=== PATIENT | male | born 1975 | race Two or more races ===

== ENCOUNTER → 2024-04-17 | Outpatient (CLI) | payer MEDICAID, SELFPAY | END | disposition home or self-care (01) | LOC: SWHD 09:34 | PROVIDERS: PCP Registered Nurse Community Health; Referring Provider Registered Nurse Community Health; Visit Provider Surgery | DX: S31.819D Unspecified open wound of right buttock, subsequent encounter (principal); X58.XXXD Exposure to other specified factors, subsequent encounter; L98.412 Non-pressure chronic ulcer of buttock with fat layer exposed; L92.9 Granulomatous disorder of the skin and subcutaneous tissue, unspecified; N63.0 Unspecified lump in unspecified breast; K60.30 Anal fistula, unspecified; K50.90 Crohn's disease, unspecified, without complications; D64.9 Anemia, unspecified | CPT/HCPCS: 99213; A9270; G0463 ==

== ENCOUNTER 2024-05-02 11:26 | Emergency (ER) | payer MEDICAID, SELFPAY ==
[2024-05-02 11:32] VITALS: BP 115/78; PULSE 87; RESP 18; TEMP 36.7; O2SAT 100; BMI 20.3
--- NOTE | 2024-05-02 11:47 | XR_ITS ---
Examination: CT abdomen and pelvis without contrast. Coronal 3-D reconstructions. Sagittal 2-D reconstructions. Date and time of exam:May 02, 2024 1231 hrs. Indications: Generalized abdominal pain one month, perianal fistula history CTDI: vol (mGy): 5.1 DLP: (mGycm): 279 Technique: Axial images of the abdomen have been obtained, 3 mm slice thickness Intravenous contrast material has not been administered. Low dose protocols were performed. One or more of the following dose reduction techniques were used; automated exposure control, adjustment of the mA and/or KV according to patient size, use of iterative reconstruction technique. Findings: No focal liver or splenic lesions Contracted gallbladder No pancreatic or adrenal mass No renal or ureteral calculi Diffuse wall thickening involving the common No pericecal inflammatory change Contracted urinary bladder Fistulous tract from the posterior right perianal region axial image 218 extending to the intergluteal fold with cellulitis in the right gluteal region, no definite abscess Impression: Diffuse severe nonspecific colitis pattern Fistulous tract from the posterior right perianal region extending to the right intergluteal fold with cellulitis
--- NOTE | 2024-05-02 11:49 | PD.EDRME ---
Rapid Medical Screening Exam RME Arrival date/time: 05/02/24 11:26 49-year-old male with history of Crohn's disease presents emergency department complains of lower abdominal pain and diarrhea Chief Complaint: Abdominal Pain Time Seen by Provider: 05/02/24 11:45 Vital signs: Vital Signs Temperature 98.0 F 05/02/24 11:32 Pulse Rate 87 05/02/24 11:32 Respiratory Rate 18 05/02/24 11:32 Blood Pressure 115/78 05/02/24 11:32 Pulse Oximetry (%) 100 05/02/24 11:32 Oxygen Delivery Method Room Air 05/02/24 11:32
[2024-05-02] MEDS: METOCLOPRAMIDE 5 MG TABLET 10 MG PO (12:04)
[2024-05-02 12:21] LABS: Basophils % (Auto) 0 % (0-2.5); Eosinophils # (Auto) 0.1 Thou/mm3 (0.0-0.5); Eosinophils % (Auto) 1 % (0-10); Hematocrit 37.5 % (41.0-53.0); Hemoglobin 11.9 g/dL (13.5-16.0); Immature Granulocytes % (Auto) 0 % (0-0); Immature Granulocytes Auto 0.02 Thou/mm3 (0.00-0.00); Lymphocytes % (Auto) 29 % (10-50); Mean Corpuscular HGB Conc 31.7 g/dl (31.0-37.0); Mean Corpuscular Hemoglobin 22.7 pg (25.0-35.0); Mean Corpuscular Volume 72 fL (80-100); Monocytes # (Auto) 0.5 Thou/mm3 (0.0-0.8); Monocytes % (Auto) 7 % (0-12); Neutrophils # (Auto) 4.4 Thou/mm3 (1.8-7.7); Neutrophils % (Auto) 63 % (37-80); Nucleated Red Blood Cell % 0 /100 WBC (0); Platelet Count 391 Thou/mm3 (140-440); RDW Standard Deviation 39.3 fL (35.1-43.9); Red Blood Count 5.24 Miln/mm3 (4.50-5.90); White Blood Count 7.1 Thou/mm3 (3.8-10.6)
[2024-05-02 12:28] LABS: Alanine Aminotransferase 25 U/L (10-49); Albumin, Serum 4.4 gm/dL (3.5-5.0); Albumin/Globulin Ratio 1.5 (1.2-2.2); Alkaline Phosphatase 92 U/L (46-116); Anion Gap 8 (7-16); Aspartate Amino Transferase 14 U/L (0-34); BUN/Creatinine Ratio 17 Ratio (12-20); Bilirubin,Total 0.5 mg/dL (0.3-1.2); Blood Urea Nitrogen 12 mg/dL (9-23); Calcium 9.6 mg/dL (8.3-10.6); Calcium (Corrected) 9.6 mg/dL (8.5-10.1); Carbon Dioxide 28.7 mMol/L (20.0-31.0); Chloride 99 mMol/L (98-107); Creatinine (Component) 0.7 mg/dL (0.6-1.3); Estimated Creatinine Clearance 105.5 mL/min (>60); Glucose 137 mg/dL (74-106); Lipase 34 U/L (12-53); Osmolality,Calculated 273 (275-295); Sodium 136 mMol/L (136-145); Total Protein 7.4 gm/dL (5.7-8.2); eGFR > 60 See Note
[2024-05-02 15:03] VITALS: BP 118/77; PULSE 69; RESP 18; TEMP 36.5; O2SAT 99
[2024-05-02 15:06] LABS: Collection Type, Urine Clean Catch; Squamous Epithelial Cell,Urine 0 /hpf (0-5)
[2024-05-02 15:17] LABS: Bilirubin,Urine Negative (Negative); Blood,Urine Negative (Negative); Calcium Oxalate Crystals,Urine 1+; Clarity,Urine Clear (Clear/Hazy); Color,Urine Yellow (Lt Yel-Yel); Culture Indicated,Urine Not Indicated; Glucose, Urine Negative (Negative); Ketones,Urine Negative (Negative); Leukocyte Esterase,Urine Negative (Negative); Nitrite,Urine Negative (Negative); PH,Urine 6.5 (5.0-7.0); Protein,Urine 1+ (Neg - Trace); RBC,Urine 4 /hpf (0-3); Specific Gravity,Urine 1.035 (1.001-1.035); Urobilinogen,Urine Negative mg/dL (0.0-1.0); WBC,Urine 6 /hpf (0-5)
--- NOTE | 2024-05-02 15:55 | EDNOTE_ITS ---
ED Abdominal Pain RME/HPI General Chief Complaint: Abdominal Pain Stated complaint: ABD PAIN/NAUSEA/CONSTIPATION X1 MONTH Time seen by provider: 05/02/24 11:45 Arrival date/time: 05/02/24 11:26 RME / HPI RME / HPI narrative: 49-year-old male patient with significant history of Crohn's disease, came in for evaluation regarding lower abdominal pain and diarrhea. This been ongoing for the last 1 month, it comes and goes. Patient also complaining of chronic wound to the rectal area for several months. Seen by colorectal surgeon, Dr. Head. Patient denies any vomiting denies any fever denies any other complaints told me that he is currently taking prednisone and mesalamine. Related Data Home Medications ?Medication ?Instructions ?Recorded ?Confirmed SALOFALK 500 mg PO 12/12/23 02/05/24 diphenoxylate-atropine 2.5 See Rx Instructions .Route 01/01/24 02/05/24 mg-0.025 mg tablet .COMPLEX PRN Diarrhea mesalamine 500 mg capsule,extended 1,000 mg PO BID 01/08/24 02/05/24 release (Pentasa) Previous Rx's ?Medication ?Instructions ?Recorded ibuprofen 600 mg tablet 600 mg PO Q6H PRN pain #30 tabs 05/23/23 ciprofloxacin HCl 500 mg tablet 500 mg PO BID #14 tabs 05/02/24 (Cipro) metronidazole 500 mg tablet 500 mg PO BID 7 days #14 tabs 05/02/24 Allergies Allergy/AdvReac Type Severity Reaction Status Date / Time sulfamethizole Allergy Mild Rash Verified 05/02/24 11:30 Review of Systems Review of Systems Narrative Review of Systems: Review of system reviewed and within normal limits except mentioned in HPI ED Exam Narrative Physical exam: VITAL SIGNS: Reviewed. GENERAL APPEARANCE: Alert and interactive, follows commands, no acute distress, HEAD AND FACE: Non-traumatic. ENT: PERRL, pink conjunctivitis, eyelid no trauma, Mucous membrane moist. NECK: Supple, nontender, no nuchal rigidity. CHEST: No tenderness, no crepitus, no paradoxical movement, no retractions. LUNGS: Clear, well ventilated, symmetric, no rales, no wheezing, no ronchi, no stridor, good breath sounds bilaterally. HEART: Regular rate, regular rhythm, no murmur, no gallops. ABDOMEN: Soft, positive bowel sounds, nondistended, no guarding, nontender, no rebound, no masses, RECTAL: Chronic wound noted on the rectal area, at 2 o'clock position, no redness noted nonfluctuant ,nontender GENITAL: Deferred. NEUROLOGICAL: Gross motor function intact sensory function intact, Appropriate for age. MUSCULOSKELETAL: low back nontender, full range of motion. EXTREMITIES: Nontender, full range of motion. SKIN: Color pink, dry, no rash, no lacerations, no abrasions, no contusions. LYMPHATICS: Deferred. Course Quality Measures none Orders Category Date Time Status CT abdomen pelvis wo con Stat Exams 05/02/24 11:47 Completed CBC Stat Lab 05/02/24 11:55 Completed Comprehensive Metabolic Panel Stat Lab 05/02/24 11:55 Completed Lipase Stat Lab 05/02/24 11:55 Completed UA, C/S IF [Urinalysis, C/S if Indicated] Stat Lab 05/02/24 14:56 Completed Metoclopramide [Reglan] Med 05/02/24 11:47 Discontinued 10 mg PO X1 ONE Potassium Chloride [K-Dur] Med 05/02/24 15:57 Once 40 meq PO X1 ONE Vital Signs Vital signs: Vital Signs Temperature 98.0 F 05/02/24 11:32 Pulse Rate 87 05/02/24 11:32 Respiratory Rate 18 05/02/24 11:32 Blood Pressure 115/78 05/02/24 11:32 Pulse Oximetry (%) 100 05/02/24 11:32 Oxygen Delivery Method Room Air 05/02/24 11:32 Abdominal Pain MDM MDM Narrative MDM Narrative:: 49-year-old male patient with significant history of Crohn's disease, came in for evaluation regarding lower abdominal pain and diarrhea. This been ongoing for the last 1 month, it comes and goes. Patient also complaining of chronic wound to the rectal area for several months. Seen by colorectal surgeon, Dr. Head. Patient denies any vomiting denies any fever denies any other complaints told me that he is currently taking prednisone and mesalamine. Laboratory workup all came back unremarkable except for potassium of 3.0. No le ukocytosis noted. CT scan of the abdomen and pelvis showed Diffuse severe nonspecific colitis pattern Fistulous tract from the posterior right perianal region extending to the right intergluteal fold with cellulitis Patient received potassium replacement in the emergency room. Patient was advised to see Dr. Sher again next week. Patient will be prescribed home on Flagyl and Cipro Patient data External records reviewed:: None Clinical information provided by:: patient Social determinants that could affect healthcare access:: none Patient has the following chronic illnesses:: Course this is How is presenting disease/condition affected by chronic disease/condition?: exacerbated by Evaluation data The following diagnostics were reviewed and interpreted by me:: lab results and radiology exam(s) Lab and/or radiology exams considered but not ordered:: None Interpretation Summary: See above in the MDM Medications / Prescriptions Medications or Prescriptions considered but not ordered:: None Medication administrations:: Medication Administration History Discontinued Medications Metoclopramide HCl (Metoclopramide 5 Mg Tablet) 10 mg PO X1 ONE Stop: 05/02/24 11:48 Last Admin: 05/02/24 12:04 Dose: 10 mg Documented By: MAK Swain and potassium replacement Consultations Consultation(s) initiated? (list below): No Diagnosis Differential diagnosis abdominal pain: abdominal pain, constipation, gastroenteritis and other (Crohn's disease, chronic fistula of the perianal) Most likely diagnosis given after review of the tests above:: Crohn's disease, chronic perianal fistula Admission Indicated Admission indicated?: not indicated Admission Request Was there a request for admission?: No Disposition Plan Disposition Plan: Discharge Discharge Attestation Discharge Attestation: The patient was given an opportunity to ask questions and understood the discharge instructions. Discharge instructions specifically effects, indications for sooner follow up or return to the emergency department, and the expected course of current diagnosis. Patient condition: Stable Discharge Plan Plan Patient Disposition: HOME (Self Care) Disposition Comment: Stable Prescriptions/Referrals Prescriptions/Med Rec: New ciprofloxacin HCl [Cipro] 500 mg tablet 500 mg PO BID Qty: 14 0RF metronidazole 500 mg tablet 500 mg PO BID 7 Days Qty: 14 0RF No Action ibuprofen 400 mg tablet 400 mg PO ONCE Qty: 1 0RF ibuprofen 600 mg tablet 600 mg PO ONCE Qty: 1 0RF ibuprofen 600 mg tablet 600 mg PO Q6H PRN (Reason: pain) Qty: 30 0RF SALOFALK 500 mg PO mesalamine [Pentasa] 500 mg capsule, extended release 1,000 mg PO BID diphenoxylate-atropine 2.5-0.025 mg tablet See Rx Instructions .ROUTE .COMPLEX PRN (Reason: Diarrhea) Patient Comments: TAKE 1-2 TABLETS BY MOUTH EVERY 8 HOURS NEEDED DIARRHEA MAX 8 TABS/24 HRS Rx Instructions: Take 1-2 tablets by mouth every 8 hours as needed for diarrhea Referrals: Mauro Jones MD [Primary Care Provider] - In 1 week Problem List Clinical Impression: Perianal fistula, Irritable bowel disease Patient/Caregiver Discharge Instructions Discharge Activity: activity as tolerated Education Materials: ED Irritable Bowel Syndrome Additional Instructions: Thank you for the opportunity for serving you today. You are stable for discharged . You are advised to: Follow-up with Dr. Head next week Return to ED for worsening of symptoms Increase oral fluids Take medication as prescribed Increase fiber in the diet Print Language: [place] Stand Alone Forms: [facility] Award Info., Patient Portal Info Letter PA/PLANT OPERATIONS COORDINATOR Supervising Physician PA/RADHA Supervising Physician: MD Monalisa
== END 2024-05-02 16:34 | disposition home or self-care (01) ==
PROVIDERS: Nurse Practitioner Primary Care; Emergency Provider Emergency Medicine; PCP Student in an Organized Health Care Education/Training Program
DX: K60.30 Anal fistula, unspecified (principal); K58.2 Mixed irritable bowel syndrome
CPT/HCPCS: 36415; 74176; 80053; 81001; 83690; 85025; 99284; A9270

== ENCOUNTER → 2024-05-18 | Outpatient (CLI) | payer MEDICAID, SELFPAY | END | disposition home or self-care (01) | LOC: SWHD 10:33 | PROVIDERS: PCP Registered Nurse Community Health; Referring Provider Registered Nurse Community Health; Visit Provider Student in an Organized Health Care Education/Training Program | DX: S31.819D Unspecified open wound of right buttock, subsequent encounter (principal); X58.XXXD Exposure to other specified factors, subsequent encounter; L98.412 Non-pressure chronic ulcer of buttock with fat layer exposed; L92.9 Granulomatous disorder of the skin and subcutaneous tissue, unspecified; N63.0 Unspecified lump in unspecified breast; K60.30 Anal fistula, unspecified; K50.90 Crohn's disease, unspecified, without complications; D64.9 Anemia, unspecified | CPT/HCPCS: 99213; A9270; G0463 ==

== ENCOUNTER 2024-05-25 14:47 | Outpatient (AMB) | payer MEDICAID, SELFPAY ==
[2024-05-25 14:58] VITALS: BP 111/74; PULSE 74; RESP 18; TEMP 37.1; O2SAT 98; BMI 21.2
--- NOTE | 2024-05-25 14:58 | GSCOFFNT_ITS ---
Vital Signs - [facility] 05/25/24 14:58 Height 1.68 m Height Method Stated Weight 60.044 kg Weight Measurement Method Standing Scale BMI 21.2 BP 111/74 Blood Pressure Source Manual Cuff- Auscultation Blood Pressure Location Left Upper Arm Position Sitting Respiration 18 Pulse 74 Pulse Source Monitor Temp 98.8 F Temp Source Temporal Artery Scan Pulse Oximetry (%) 98 Oxygen Delivery Method Room Air Med/Allergies Allergies & Medications Allergies sulfamethizole Allergy (Mild, Verified 05/25/24 14:59) Rash Medication Reconciliation ibuprofen 600 mg tablet 600 mg PO Q6H PRN pain #30 tabs 05/23/23 [Rx Confirmed 05/25/24] SALOFALK 500 mg PO 12/12/23 [History Confirmed 05/25/24] diphenoxylate-atropine 2.5 mg-0.025 mg tablet See Rx Instructions .Route .COMPLEX PRN Diarrhea 01/01/24 [History Confirmed 05/25/24] mesalamine 500 mg capsule,extended release (Pentasa) 1,000 mg PO BID 01/08/24 [History Confirmed 05/25/24] ciprofloxacin HCl 500 mg tablet (Cipro) 500 mg PO BID #14 tabs 05/02/24 [Rx Confirmed 05/25/24] MA Intake Visit Data Collection New Patient or Established: Established Patient (seen at [facility] within 3 years) Seen by Clinical Staff ONLY (RN/MA): No Reason for Visit:: FISTULA F/U Pain Present Currently: Yes Pain Location: Unable to identify Pain scale:: 6 Car Salesman Required: Yes PCP or OBGYN visit in last 3 months: Yes Hx Now: No Do You Feel Safe at Home: Yes Authorities Contacted: N/A Smoking Status Smoking Status: Never smoker Immunization / Flu Flu Vaccine in the Last 12 Months: No Flu Vaccine Exclusion Criteria: Refused by Patient Past Medical History Past Medical History NEUROLOGIC: Negative Seizures CARDIAC: Negative Cardiac Disorders or Congestive Heart Failure RESPIRATORY: Negative Chronic Obstructive Pulmonary Disease (COPD) or Asthma GENITOURINARY: Negative Renal Disease ENDOCRINE: Negative Diabetes Mellitus Type 1 or Diabetes Mellitus Type 2 HEMATOLOGIC: Negative Sickle Cell Disease OTHER HISTORY: Negative Blood Transfusions, Blood Transfusion Reaction or Anesthesia Reactions Social History SMOKING STATUS: Smoking status: Never smoker ALCOHOL: Alcohol Intake: Never HOUSING: Housing: trailer LIVES WITH: Lives With: Alone HPI HPI Narrative 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 Patient has been taking Humira and mesalamine and is being weaned from prednisone, and states that for the last month or so his diarrhea has improved somewhat. He still has loose BMs and tenesmus but feels that he is not going quite as frequently as of late. He is followed with wound care, continues to have perianal drainage although it is less than previous. Patient also states he is eating better and has gained a little bit of weight ROS Review of Systems Systems Reviewed: All systems reviewed, normal except as documented Objective/Exam General General Appearance: alert, cooperative and well groomed Resp Respiratory exam: Absent respiratory distress Rectal Rectal exam: Present other (Right perianal wound healing with beefy red granulation tissue, no obvious fistula tract, no surrounding erythema, no fluctuance) Assessment & Plan Diagnosis / Problem List (1) Crohn's disease of perianal region with fistula: Status: Acute Assessment & Plan: 49M with Crohn's disease and associated perianal fistula which has decreased in size compared to exams last year. Patient was advised to follow-up with his GI, PCP and wound care Plan: Follow up in 3 months or sooner if needed top Office Procedures GNS Level of Care Nursing/Assessment Patient Status: Established Patient Nursing Assessment/Reassesment: Medication Reconciliation, Update PMH in EMR and Vital Signs Coordination of Care: Complex Care and Chronic Disease 1-5, Consent,records obtained, informed consent, Education Simp Pt/Fam, Results/Orders obtained and Staff clarify orders Special Needs: Language special needs Established Patient Charge Established Patient Point Assignment: 90 Established Patient Point Charge: EP Level 3 (80-115) Patient Portal Questionaires Social History Living Situation History Housing: trailer Tobacco History Smoking Status: Never smoker Alcohol History Alcohol Intake: Never Domestic Abuse History Do You Feel Safe at Home: Yes Review of Systems Report any current symptoms Only answer those that you have currently: Past Medical History Past Medical History Have you ever been diagnosed with any of the following: Neurological Problems Seizures: No Cardiology Problems Congestive Heart Failure: No Respiratory Problems Chronic Obstructive Pulmonary Disease (COPD): No Asthma: No Genital/Urinary Problems Renal Disease: No Endocrine Problems Diabetes Mellitus Type 1: No Diabetes Mellitus Type 2: No Blood Problems Sickle Cell Disease: No Other Problems Blood Transfusions: No Blood Transfusion Reaction: No Anesthesia Reactions: No
== END 2024-05-25 15:30 | disposition home or self-care (01) ==
LOC: HODSRG 14:47
PROVIDERS: PCP Registered Nurse Community Health; Referring Provider Registered Nurse Community Health; Supervising Provider Surgery; Visit Provider Surgery
DX: K50.113 Crohn's disease of large intestine with fistula (principal)
CPT/HCPCS: 99213; G0463

== ENCOUNTER → 2024-06-01 | Outpatient (CLI) | payer MEDICAID, SELFPAY | END | disposition home or self-care (01) | LOC: SWHD 10:27 | PROVIDERS: PCP Registered Nurse Community Health; Referring Provider Registered Nurse Community Health; Visit Provider Student in an Organized Health Care Education/Training Program | DX: S31.819D Unspecified open wound of right buttock, subsequent encounter (principal); X58.XXXD Exposure to other specified factors, subsequent encounter; L98.412 Non-pressure chronic ulcer of buttock with fat layer exposed; L92.9 Granulomatous disorder of the skin and subcutaneous tissue, unspecified; N63.0 Unspecified lump in unspecified breast; K60.30 Anal fistula, unspecified; K50.90 Crohn's disease, unspecified, without complications; D64.9 Anemia, unspecified | CPT/HCPCS: 99213; A9270; G0463 ==

== ENCOUNTER → 2024-06-08 | Outpatient (CLI) | payer MEDICAID, SELFPAY | END | disposition home or self-care (01) | LOC: SWHD 11:52 | PROVIDERS: PCP Registered Nurse Community Health; Referring Provider Registered Nurse Community Health; Visit Provider Student in an Organized Health Care Education/Training Program | DX: S31.819D Unspecified open wound of right buttock, subsequent encounter (principal); X58.XXXD Exposure to other specified factors, subsequent encounter; L98.412 Non-pressure chronic ulcer of buttock with fat layer exposed; L92.9 Granulomatous disorder of the skin and subcutaneous tissue, unspecified; N63.0 Unspecified lump in unspecified breast; D64.9 Anemia, unspecified | CPT/HCPCS: 99213; A9270; G0463 ==

== ENCOUNTER → 2024-06-26 | Outpatient (CLI) | payer MEDICAID, SELFPAY | END | disposition home or self-care (01) | LOC: SWHD 10:53 | PROVIDERS: PCP Registered Nurse Community Health; Referring Provider Registered Nurse Community Health; Visit Provider Surgery | DX: S31.819D Unspecified open wound of right buttock, subsequent encounter (principal); X58.XXXD Exposure to other specified factors, subsequent encounter; L98.412 Non-pressure chronic ulcer of buttock with fat layer exposed; L92.9 Granulomatous disorder of the skin and subcutaneous tissue, unspecified; D64.9 Anemia, unspecified; N63.0 Unspecified lump in unspecified breast; K50.90 Crohn's disease, unspecified, without complications | CPT/HCPCS: 99213; A9270; G0463 ==

== ENCOUNTER → 2024-07-03 | Outpatient (CLI) | payer MEDICAID, SELFPAY | END | disposition home or self-care (01) | LOC: SWHD 10:16 | PROVIDERS: PCP Registered Nurse Community Health; Referring Provider Registered Nurse Community Health; Visit Provider Surgery | DX: S31.819D Unspecified open wound of right buttock, subsequent encounter (principal); X58.XXXD Exposure to other specified factors, subsequent encounter; L98.412 Non-pressure chronic ulcer of buttock with fat layer exposed; L92.9 Granulomatous disorder of the skin and subcutaneous tissue, unspecified; D64.9 Anemia, unspecified; N63.0 Unspecified lump in unspecified breast; K50.90 Crohn's disease, unspecified, without complications; R60.0 Localized edema | CPT/HCPCS: 99213; A9270; G0463 ==

== ENCOUNTER → 2024-07-17 | Outpatient (CLI) | payer MEDICAID, SELFPAY | END | disposition home or self-care (01) | PROVIDERS: PCP Registered Nurse Community Health; Referring Provider Registered Nurse Community Health; Visit Provider Physician Assistant | DX: S31.819D Unspecified open wound of right buttock, subsequent encounter (principal); X58.XXXD Exposure to other specified factors, subsequent encounter; L98.412 Non-pressure chronic ulcer of buttock with fat layer exposed; L92.9 Granulomatous disorder of the skin and subcutaneous tissue, unspecified; D64.9 Anemia, unspecified; N63.0 Unspecified lump in unspecified breast; R60.0 Localized edema | CPT/HCPCS: 99213; A9270; G0463 ==

== ENCOUNTER 2024-07-18 07:28 | Inpatient (IN) | payer MEDICAID, SELFPAY ==
[2024-07-18] VITALS (8 sets, daily range): BP systolic 96–118; BP diastolic 52–76; PULSE 61–93; RESP 16–98; TEMP 36.2–36.8; O2SAT 95–100; BMI 21.6; BMI 20.2; BMI 20.5
--- NOTE | 2024-07-18 08:02 | EDRME_ITS ---
Rapid Medical Screening Exam RME Arrival date/time: 07/18/24 07:28 49-year-old male with medical history significant for Crohn's disease as well as anal fistula currently followed by specialist in [place] presents to the emergency department today complaints of nausea vomiting abdominal pain as well as hiccups. Chief Complaint: Extremity Problem,Nontraumatic Time Seen by Provider: 07/18/24 07:30 Vital signs: Vital Signs Temperature 98.2 F 07/18/24 07:48 Pulse Rate 93 07/18/24 07:48 Respiratory Rate 18 07/18/24 07:48 Blood Pressure 110/76 07/18/24 07:48 Pulse Oximetry (%) 97 07/18/24 07:48 Oxygen Delivery Method Room Air 07/18/24 07:48
--- NOTE | 2024-07-18 08:22 | EDNOTE_ITS ---
ED General RME/HPI General Chief complaint: Extremity Problem,Nontraumatic Stated complaint: Extremity pain and bruising without trauma Time Seen by Provider: 07/18/24 07:30 Arrival date/time: 07/18/24 07:28 RME / HPI RME / HPI narrative: 07/18/24 07:28 49-year-old male with medical history significant for Crohn's disease as well as anal fistula currently followed by specialist in [place] presents to the emergency department today complaints of nausea vomiting abdominal pain as well as hiccups. DR. WATSON MAIN ED EVALUATION: 49 year old male with past medical history significant for Crohn's disease and anal fistula currently followed by a specialist in [place] presents to the Emergency Department with complaints of intermittent hiccups onset 1 week. Associated nausea and vomiting, especially after hiccups episode. No diarrhea. Related Data Home Medications ?Medication ?Instructions ?Recorded ?Confirmed SALOFALK 500 mg PO 12/12/23 05/25/24 diphenoxylate-atropine 2.5 See Rx Instructions .Route 01/01/24 05/25/24 mg-0.025 mg tablet .COMPLEX PRN Diarrhea mesalamine 500 mg capsule,extended 1,000 mg PO BID 05/25/24 release (Pentasa) Previous Rx's ?Medication ?Instructions ?Recorded ibuprofen 600 mg tablet 600 mg PO Q6H PRN pain #30 t abs 05/23/23 ciprofloxacin HCl 500 mg tablet 500 mg PO BID #14 tabs 05/02/24 (Cipro) Allergies Allergy/AdvReac Type Severity Reaction Status Date / Time sulfamethizole Allergy Mild Rash Verified 05/25/24 14:59 Review of Systems Review of Systems Systems Reviewed: All systems reviewed, normal except as documented Narrative Review of Systems: GEN: No fever, no chills, no weight loss, + intermittent hiccups (see HPI) EYES: No discharge, no visual changes, no pain HEENT: No ear pain, no congestion, no sore throat PULM: No shortness of breath, no cough, no congestion CV: No chest pain, no dyspnea on exertion, no palpitations GI: + nausea, + vomiting, no diarrhea, no pain, no constipation : No frequency, no urgency and no dysuria MUSC/SKEL: No joint pain, no back pain SKIN: No rash PSYCH: No hallucinations, no depression HEME/LYMPH: No easy bleeding or bruising tendencies NEURO: No weakness, no headache Past Medical History Past Medical History GASTROINTESTINAL: Positive Crohn's Disease Surgical History OTHER SURGICAL HX: ANAL FISTULA SURGERY Social History SMOKING STATUS: Never smoker SUBSTANCE USE: does not use ALCOHOL: Never ED Exam Narrative Physical exam: GENERAL APPEARANCE: alert and oriented x 4, well-developed, well-nourished, no acute distress VITALS: All vitals were reviewed and the pulse ox is 100% on room air, which is normal according to my interpretation. HEENT: Normocephalic, atraumatic; pupils equal, round, reactive to light; EOMI; mucous membranes pink, moist; oropharynx clear NECK: Supple LUNGS: CTABL; no wheezes, no rales, no rhonchi HEART: Regular rate, regular rhythm; normal S1, S2; no murmurs ABDOMEN: non distended; normal BS; soft, no tenderness, no guarding, no rebound; no masses, no organomegaly, no hernia BACK: no CVA tenderness EXTREMITIES: atraumatic; no edema NEUROLOGIC: awake; alert and oriented x4; cranial nerves II-XII grossly intact; no focal sensory or motor deficits PSYCHIATRIC: appropriate mood and affect SKIN: warm, dry, normal color; no rashes Course Quality Measures none Orders Category Date Time Status CT Screening NOW Care 07/18/24 09:20 Active Insert IV NOW Care 07/18/24 08:01 Active NPO NOW Care 07/18/24 13:40 Active Diet NPO (NOW) Diet 07/18/24 13:[address] abdomen pelvis w con Stat Exams 07/18/24 09:20 Completed CBC Stat Lab 07/18/24 08:20 Completed Comprehensive Metabolic Panel Stat Lab 07/18/24 08:20 Completed Lipase Stat Lab 07/18/24 08:20 Completed Mag [Magnesium] Stat Lab 07/18/24 08:20 Completed Path Review Blood Smear Stat Lab 07/18/24 08:20 Completed UA, C/S IF [Urinalysis, C/S if Indicated] Stat Lab 07/18/24 08:39 Completed Urine Culture Stat Lab 07/18/24 08:39 Received Metoclopramide Inj [Reglan Inj] Med 07/18/24 08:01 Discontinued 10 mg IVP X1 ONE Metoclopramide Inj [Reglan Inj] Med 07/18/24 13:36 Discontinued 10 mg IVP X1 ONE Piper/Tazo Inj [Zosyn Inj] 3.375 gm Med 07/18/24 13:39 Discontinued SODIUM CHLORIDE 0.9% (Popper) [Ns 0.9% (P)] 50 ml IV X1 Sodium Chloride 0.9% 1000 ml [Ns] 1,000 ml Med 07/18/24 14:10 Active IV 125 mls/hr Sodium Chloride 0.9% 1000 ml [Ns] 1,000 ml Med 07/18/24 08:37 Discontinued IV 999 mls/hr Sodium Chloride 0.9% 250 ml [Ns] 250 ml Med 07/18/24 08:01 Discontinued IV 999 mls/hr Reevaluation(s) Reevaluation #1: Re-assessment at the time of disposition demonstrates that the patient is still having hiccups. No other complaints at this time. Ordered more reglan for him and waiting on Dr. Fischer to call back, I left a message. Time: 13:32 Vital Signs Vital signs: Vital Signs Temperature 98.2 F 07/18/24 07:48 Pulse Rate 93 07/18/24 07:48 Respiratory Rate 18 07/18/24 07:48 Blood Pressure 110/76 07/18/24 07:48 Pulse Oximetry (%) 97 07/18/24 07:48 Oxygen Delivery Method Room Air 07/18/24 07:48 [facility] Patient data External records reviewed:: [facility] previous records (Reviewed surgical follow-up note by Dr. Head dated 05/25/24.) Clinical information provided by:: patient Social determinants that could affect healthcare access:: none Patient has the following chronic illnesses:: Crohn's disease and anal fistula currently followed by a specialist in [place] How is presenting disease/condition affected by chronic disease/condition?: e xacerbated by Evaluation data The following diagnostics were reviewed and interpreted by me:: lab results and radiology exam(s) Lab and/or radiology exams considered but not ordered:: none Interpretation Summary: [facility] [address] [place] [address] [employer] Preliminary Report Draft Patient: SHANNAN VALLEJO [facility]. Record#: [id number] Birthdate: 1975 Age/Sex: 49 / M Location: [facility] Attending Dr: Ordering Physician: Date of Service: Procedure(s): Accession Number(s): cc: ~ CT scan of the abdomen and pelvis with intravenous contrast (axial sections with sagittal and coronal reformats) July 18, 2024 1124 hours Clinical History: Epigastric pain Comparison: No prior study is available for comparison. Findings: The lung bases are clear. The liver, gallbladder, pancreas, spleen and adrenals are unremarkable. There is a right renal cyst, measuring 1 cm. No evidence of bowel obstruction. There is mild thickening of the caecum, descending, sigmoid and transverse colon with associated fat stranding and mucosal enhancement. The appendix is thickened, measuring 23 mm in caliber with mural enhancement and periappendiceal fat stranding. There is no mesenteric or retroperitoneal adenopathy. The urinary bladder is incompletely distended at the time of the examination and appears mildly thick-walled. There is rectal wall thickening with perirectal fat stranding. There is a 4 x 5 cm peripherally enhancing fluid collection with surrounding fat stranding in the right perianal region, consistent with an abscess, with fat stranding extending to the right gluteal fold. On the background of edema, a fistula is differentiated, with exit to the skin of the perianal area on the right side. There is no free fluid or free air. The osseous structures are unremarkable. Impression: 1. Acute appendicitis without evidence of free air or abscess. 2. A 4 x 5 cm peripherally enhancing fluid collection with surrounding fat stranding in the right perianal region, consistent with an abscess, with fat stranding extending to the right gluteal fold. Fistula of the perianal area. 3. Thickening of the caecum, descending, sigmoid and transverse colon with associated fat stranding and mucosal enhancement, suggestive of colitis of inflammatory or infectious etiology. Discussion Details: Results verbally communicated to : Dr. Watson at 01:18 PM 07/18/2024 Report Electronically Signed By: Ibrahima Jacobs 07/18/2024 1:27:32 PM [EST] Dictated By: Signed By: DD/ 1213 TD/TT: 07/18/[address] General Manager: - [facility] [address] [place] [address] [facility] Report Signed Patient: SHANNAN VALLEJO Record#: [id number] Birthdate: 1975 Age/Sex: 49 / M Location: [facility] Attending Dr: Ordering Physician: Maggy Watson MD Date of Service: 07/18/24 Procedure(s): CT abdomen pelvis w con Accession Number(s): [id number] cc: Mauro Jones MD; Marshall Cuello MD; Maggy Watson MD~ Examination: CT abdomen with intravenous contrast CT pelvis with intravenous contrast 2-D coronal reconstructions 2-D sagittal reconstructions Date and time of exam:July 18, 2024 1130 hrs. Indications: Onset abdominal pain epigastric pain today. CTDI: vol (mGy) 4.53 DLP: (mGycm) 240 Technique: Multiple axial sections of the abdomen and pelvis have been obtained. 64 slice high-resolution scanner used. 3 mm axial sections have been obtained, post intravenous injection 100 cc [id number] 2-D sagittal, coronal reconstructions obtained. Low dose protocols were performed. One or more of the following dose reduction techniques were used; automated exposure control, adjustment of the mA and/or KV according to patient size, use of iterative reconstruction technique. Findings: No focal liver or splenic lesions Mild splenomegaly No gallstones Edema involving the right kidney consistent with acute right, nephritis Aorta normal size There is inflammation medial to the cecum, the appendix is not third visualized Perianal small fluid collection There is acute right pyelonephritis There is diffuse colitis and proctitis There is a right perianal abscess 3 x 4 cm Impression: Inflammation medial to the cecum Right pyelonephritis Right perianal abscess Dictated By: Marshall Cuello MD Signed By: <Electronically signed by Marshall Cuello MD in [place]> 07/18/24 1421 DD/ 1417 TD/TT: 07/18/[address] General Manager: DAV Medications Medications considered but not ordered:: none Medication administrations:: Medication Administration History Acetaminophen (Acetaminophen 325 Mg Tablet) 650 mg PO Q6H PRN PRN Reason: Fever >101.5 Stop: 08/17/24 14:29 Sodium Chloride (Ns) 1,000 mls @ 125 mls/hr IV .Q8H ONE Stop: 07/18/24 22:09 Last Admin: 07/18/24 14:14 Dose: 125 mls/hr Documented By: GM Piperacillin Sod/Tazobactam (Sod 3.375 gm/ Sodium Chloride) 50 mls @ 12.5 mls/hr IV Q8HR [facility] Stop: 07/25/24 21:59 Oxycodone/Acetaminophen (Oxycodone/Apap 5/325 Tablet) 1 tab PO Q6H PRN PRN Reason: PAIN SCALE 4-6 (Moderate Stop: 07/23/24 14:29 Discontinued Medications Sodium Chloride (Ns) 250 mls @ 999 mls/hr IV .Q16M ONE Stop: 07/18/24 08:16 Last Admin: 07/18/24 08:36 Dose: Not Given Documented By: GM Non-Admin Reason: Cancelled by Provider Sodium Chloride (Ns) 1,000 mls @ 999 mls/hr IV .Q1H1M ONE Stop: 07/18/24 09:37 Last Infusion: 07/18/24 09:47 Dose: Infused Documented By: Admin: 07/18/24 08:39 Dose: 999 mls/hr Documented By: GM Piperacillin Sod/Tazobactam (Sod 3.375 gm/ Sodium Chloride) 50 mls @ 100 mls/hr IV X1 ONE Stop: 07/18/24 14:08 Last Infusion: 07/18/24 14:44 Dose: Infused Documented By: Admin: 07/18/24 14:07 Dose: 100 mls/hr Documented By: GM Sodium Chloride (Ns) 1,000 mls @ 75 mls/hr IV .[id number] [facility] Stop: 07/19/24 03:54 Last Admin: 07/18/24 14:44 Dose: Not Given Documented By: GM Non-Admin Reason: Cancelled by Provider Piperacillin Sod/Tazobactam (Sod 3.375 gm/ Sodium Chloride) 50 mls @ 100 mls/hr IV Q6HR [facility] Stop: 07/25/24 14:41 Last Admin: 07/18/24 14:44 Dose: Not Given Documented By: GM Non-Admin Reason: Duplicate Medication on eMAR Mesalamine (Mesalamine 250 Mg Capsule.Er) 500 mg PO X1 ONE Stop: 07/18/24 16:55 Metoclopramide HCl (Metoclopramide Inj 5 Mg/Ml Vial 2 Ml) 10 mg IVP X1 ONE; Protocol Stop: 07/18/24 08:02 Last Admin: 07/18/24 08:30 Dose: 10 mg Documented By: MITCHELL Metoclopramide HCl (Metoclopramide Inj 5 Mg/Ml Vial 2 Ml) 10 mg IVP X1 ONE; Protocol Stop: 07/18/24 13:37 Last Admin: 07/18/24 14:03 Dose: 10 mg Documented By: see above Consultations Consultation(s) initiated? (list below): Yes Consultation #1 (Physician, Specialty, Details): Discussed test HPI, PMHx, lab, radiology results and/or management with Dr. Fischer. Will consult an admission to the hospitalist. Time: 13:39 Consultation #2 (Physician, Specialty, Details): Discussed test HPI, PMHx, lab, radiology results and/or management with hospitalist. Will admit for further evaluation and management. Accepts patient for admission. Time: 13:42 Consultation #3 (Physician, Specialty, Details): 1457: Discussed abdomen/pelvis CT radiology results Dr. Segundo. He does not think it is acute appendicitis; however, there is right pyelonephritis. 14:59: Discussed with Dr. Fischer about discussion with Dr. Segundo. There is right pyelonephritis but not acute appendicitis. Diagnosis Differential Diagnosis ED Complaint MDM: Crohn's disease, gastritis, pancreatitis, gallbladder disease Most likely diagnosis given after review of the tests above:: Perianal abscess Perianal fistula Intractable hiccups Admission Indicated Admission indicated?: indicated Explain why admission is indicated or not indicated:: Diagnoses meet admission criteria. Admission Request Was there a request for admission?: Yes Admission Attestation Admission request attestation: Discussed case with [] from Hospitalist service regarding admission. Discussed patients ED course, exam findings, labs, and radiology results. The Hospitalist [agrees,declines] to accept the patient for admission. Disposition Plan Disposition Plan: Admit Medical Decision Making MDM Narrative MDM Narrative: I, Iveth Leon, tatianna scribing for and in the presence of Dr. Watson. Differential Diagnosis Differential Diagnosis: Crohn's disease, gastritis, pancreatitis, gallbladder disease Lab Data 07/18/24 08:20 07/18/24 08:20 Labs: Lab Results 07/18/24 07/18/24 Range/Units 08:20 08:39 WBC 5.7 (3.8-10.6) Thou/mm3 RBC 4.94 (4.50-5.90) Miln/mm3 Hgb 10.1 L (13.5-16.0) g/dL Hct 33.1 L (41.0-53.0) % MCV 67 L (80-100) fL MCH 20.4 L (25.0-35.0) pg MCHC 30.5 L (31.0-37.0) g/dl RDW Std Deviation 42.3 (35.1-43.9) fL Plt Count 352 (140-440) Thou/mm3 Neut % (Auto) 67 (37-80) % Lymph % (Auto) 25 (10-50) % Saline % (Auto) 7 (0-12) % Eos % (Auto) 1 (0-10) % Baso % (Auto) 0 (0-2.5) % Neut # (Auto) 3.8 (1.8-7.7) Thou/mm3 Lymph # (Auto) 1.4 (1.0-4.8) Thou/mm3 Saline # (Auto) 0.4 (0.0-0.8) Thou/mm3 Eos # (Auto) 0.0 (0.0-0.5) Thou/mm3 Baso # (Auto) 0.0 (0.0-0.2) Thou/mm3 Immature Gran # (Auto) 0.02 H (0.00-0.00) Thou/mm3 Absolute Nucleated RBC 0.00 (0.00-0.00) Thou/mm3 Immature Gran % 0 (0-0) % Nucleated RBC % 0 (0) /100 WBC Smear Path Review Sent to Pathologist Sodium 139 (136-145) mMol/L Potassium 3.3 L (3.4-5.1) mMol/L Chloride 104 (98-107) mMol/L Carbon Dioxide 27.2 (20.0-31.0) mMol/L Anion Gap 8 (7-16) BUN 10 (9-23) mg/dL Creatinine 0.7 (0.6-1.3) mg/dL Estim Creat Clear Calc 101.6 (>60) mL/min eGFR > 60 (60 - ) See Note BUN/Creatinine Ratio 14 (12-20) Ratio Glucose 103 (74-106) mg/dL Calculated Osmolality 276 (275-295) Calcium 8.8 (8.3-10.6) mg/dL Corrected Calcium 9.1 (8.5-10.1) mg/dL Magnesium 2.2 (1.6-2.6) mg/dL Total Bilirubin 0.6 (0.3-1.2) mg/dL AST < 10 (0-34) U/L ALT < 7 L (10-49) U/L Alkaline Phosphatase 64 (46-116) U/L Total Protein 6.6 (5.7-8.2) gm/dL Albumin 3.6 (3.5-5.0) gm/dL Globulin 3.0 (2.3-3.5) gm/dL Albumin/Globulin Ratio 1.2 (1.2-2.2) Lipase 26 (12-53) U/L Ur Collection Type Clean Catch Urine Color Yellow (Lt Yel-Yel) Urine Clarity Turbid A (Clear/Hazy) Urine pH 6.5 (5.0-7.0) Ur Specific [place] 1.017 (1.001-1.035) Urine Protein 1+ A (Neg - Trace) Urine Glucose (UA) Negative (Negative) Urine Ketones Negative (Negative) Urine Blood 1+ A (Negative) Urine Nitrite Negative (Negative) Urine Bilirubin Negative (Negative) Urine Urobilinogen (Auto) Negative (0.0-1.0) mg/dL Ur Leukocyte Esterase Positive (Negative) Urine RBC 43 H (0-3) /hpf Urine WBC 285 H (0-5) /hpf Ur Squamous Epith Cells 1 (0-5) /hpf Ur Transition Epith Cell 2 (0-5) /hpf Urine Bacteria None (None) Ur Culture Indicated? Yes Discharge Plan Plan Patient Disposition: Admit Acute Care w/in Hospital Problem List Clinical Impression: Perianal fistula, Perianal abscess, Intractable hiccups, Pyelonephritis of right kidney
[2024-07-18] MEDS: METOCLOPRAMIDE INJ 5 MG/ML VIAL 2 ML 10 MG IVP ×2 (08:30→14:03)
[2024-07-18 08:34] LABS: Basophils % (Auto) 0 % (0-2.5); Eosinophils % (Auto) 1 % (0-10); Hematocrit 33.1 % (41.0-53.0); Hemoglobin 10.1 g/dL (13.5-16.0); Immature Granulocytes % (Auto) 0 % (0-0); Immature Granulocytes Auto 0.02 Thou/mm3 (0.00-0.00); Lymphocytes # (Auto) 1.4 Thou/mm3 (1.0-4.8); Lymphocytes % (Auto) 25 % (10-50); Mean Corpuscular HGB Conc 30.5 g/dl (31.0-37.0); Mean Corpuscular Hemoglobin 20.4 pg (25.0-35.0); Mean Corpuscular Volume 67 fL (80-100); Monocytes # (Auto) 0.4 Thou/mm3 (0.0-0.8); Monocytes % (Auto) 7 % (0-12); Neutrophils # (Auto) 3.8 Thou/mm3 (1.8-7.7); Neutrophils % (Auto) 67 % (37-80); Nucleated Red Blood Cell % 0 /100 WBC (0); Platelet Count 352 Thou/mm3 (140-440); RDW Standard Deviation 42.3 fL (35.1-43.9); Red Blood Count 4.94 Miln/mm3 (4.50-5.90); White Blood Count 5.7 Thou/mm3 (3.8-10.6)
[2024-07-18] MEDS: SODIUM CHLORIDE 0.9% 1000 ML 1,000 ML 999 ML IV (08:39)
[2024-07-18 09:01] LABS: Alanine Aminotransferase < 7 U/L (10-49); Albumin, Serum 3.6 gm/dL (3.5-5.0); Albumin/Globulin Ratio 1.2 (1.2-2.2); Alkaline Phosphatase 64 U/L (46-116); Anion Gap 8 (7-16); Aspartate Amino Transferase < 10 U/L (0-34); BUN/Creatinine Ratio 14 Ratio (12-20); Bilirubin,Total 0.6 mg/dL (0.3-1.2); Blood Urea Nitrogen 10 mg/dL (9-23); Calcium 8.8 mg/dL (8.3-10.6); Calcium (Corrected) 9.1 mg/dL (8.5-10.1); Carbon Dioxide 27.2 mMol/L (20.0-31.0); Chloride 104 mMol/L (98-107); Creatinine (Component) 0.7 mg/dL (0.6-1.3); Estimated Creatinine Clearance 101.6 mL/min (>60); Glucose 103 mg/dL (74-106); Lipase 26 U/L (12-53); Magnesium 2.2 mg/dL (1.6-2.6); Osmolality,Calculated 276 (275-295); Potassium 3.3 mMol/L (3.4-5.1); Sodium 139 mMol/L (136-145); Total Protein 6.6 gm/dL (5.7-8.2); eGFR > 60 See Note
--- NOTE | 2024-07-18 09:02 | PC.NURSE ---
CALLED AND SPOKE TO DR. GEORGE VIA PHONE TO CLARIFY IF DR. GEORGE WILL BE PLACING PRN MEDICATION ORDERS FOR PT; PER DR. GEORGE, WILL PUT THEM IN.
[2024-07-18 09:15] LABS: Collection Type, Urine Clean Catch
--- NOTE | 2024-07-18 09:20 | XR_ITS ---
Examination: CT abdomen with intravenous contrast CT pelvis with intravenous contrast 2-D coronal reconstructions 2-D sagittal reconstructions Date and time of exam:July 18, 2024 1130 hrs. Indications: Onset abdominal pain epigastric pain today. CTDI: vol (mGy) 4.53 DLP: (mGycm) 240 Technique: Multiple axial sections of the abdomen and pelvis have been obtained. 64 slice high-resolution scanner used. 3 mm axial sections have been obtained, post intravenous injection 100 cc Isovue-370 2-D sagittal, coronal reconstructions obtained. Low dose protocols were performed. One or more of the following dose reduction techniques were used; automated exposure control, adjustment of the mA and/or KV according to patient size, use of iterative reconstruction technique. Findings: No focal liver or splenic lesions Mild splenomegaly No gallstones Edema involving the right kidney consistent with acute right, nephritis Aorta normal size There is inflammation medial to the cecum, the appendix is not third visualized Perianal small fluid collection There is acute right pyelonephritis There is diffuse colitis and proctitis There is a right perianal abscess 3 x 4 cm Impression: Inflammation medial to the cecum Right pyelonephritis Right perianal abscess
[2024-07-18 09:24] LABS: Bilirubin,Urine Negative (Negative); Blood,Urine 1+ (Negative); Clarity,Urine Turbid (Clear/Hazy); Color,Urine Yellow (Lt Yel-Yel); Glucose, Urine Negative (Negative); Ketones,Urine Negative (Negative); Leukocyte Esterase,Urine Positive (Negative); Nitrite,Urine Negative (Negative); PH,Urine 6.5 (5.0-7.0); Protein,Urine 1+ (Neg - Trace); RBC,Urine 43 /hpf (0-3); Specific Gravity,Urine 1.017 (1.001-1.035); Squamous Epithelial Cell,Urine 1 /hpf (0-5); Transitional Epi Cells,Urine 2 /hpf (0-5); Urobilinogen,Urine Negative mg/dL (0.0-1.0); WBC,Urine 285 /hpf (0-5)
[2024-07-18 09:25] LABS: Culture Indicated,Urine Yes
--- NOTE | 2024-07-18 13:28 | PRELIM_ITS ---
CT scan of the abdomen and pelvis with intravenous contrast (axial sections with sagittal and coronal reformats) July 18, 2024 1124 hours Clinical History: Epigastric pain Comparison: No prior study is available for comparison. Findings: The lung bases are clear. The liver, gallbladder, pancreas, spleen and adrenals are unremarkable. There is a right renal cyst, measuring 1 cm. No evidence of bowel obstruction. There is mild thickening of the caecum, descending, sigmoid and transverse colon with associated fat stranding and mucosal enhancement. The appendix is thickened, measuring 23 mm in caliber with mural enhancement and periappendiceal fat stranding. There is no mesenteric or retroperitoneal adenopathy. The urinary bladder is incompletely distended at the time of the examination and appears mildly thick-walled. There is rectal wall thickening with perirectal fat stranding. There is a 4 x 5 cm peripherally enhancing fluid collection with surrounding fat stranding in the right perianal region, consistent with an abscess, with fat stranding extending to the right gluteal fold. On the background of edema, a fistula is differentiated, with exit to the skin of the perianal area on the right side. There is no free fluid or free air. The osseous structures are unremarkable. Impression: 1. Acute appendicitis without evidence of free air or abscess. 2. A 4 x 5 cm peripherally enhancing fluid collection with surrounding fat stranding in the right perianal region, consistent with an abscess, with fat stranding extending to the right gluteal fold. Fistula of the perianal area. 3. Thickening of the caecum, descending, sigmoid and transverse colon with associated fat stranding and mucosal enhancement, suggestive of colitis of inflammatory or infectious etiology. Discussion Details: Results verbally communicated to : Dr. Watson at 01:18 PM 07/18/2024 Report Electronically Signed By: Ibrahima Jacobs 07/18/2024 1:27:32 PM [EST]
[2024-07-18] MEDS: PIPER/TAZO INJ 3.375 GM in SODIUM CHLORIDE 0.9% (Popper) 50 ML IV ×2 (14:07→21:49)
[2024-07-18] MEDS: SODIUM CHLORIDE 0.9% 1000 ML 1,000 ML 125 ML IV (14:14)
--- NOTE | 2024-07-18 16:27 | PD.RESHP ---
Documentation for date of: 07/18/24 [facility] History of Present Illness History of present illness: Mr. Mary is a 48 year-old Hong Konger-speaking only male with history of Crohn's disease (diagnosed november 2023) presented to the ED complaining of generalized weakness and hiccups for the past 1 week. Patient states he has a known history of IBD and has been feeling ill ever since the diagnosis with worsening intermittent symptoms. Pt states the non stop hiccups are the most bothersome to him. Patient states that he is unable to eat very much due to early satiety and is compliant on his medication. Patient states he has perianal abscess which has been draining for a while causing a perianal fistula. For the past 1 weeks patient has been having increased bruising, fever, chills and feeling cold in his hands and feet and unable to eat very much. Patient also had off and on formed stool with episodes of diarrhea and mucus in his stool denies noticing melena or hematochezia. Patient states he is also been having right lower quadrant abdominal tenderness. Patient is following Dr. Mcclelland of the [facility] and has been compliant with all his medications. Patient is also being followed by well treatment offsider, Dr. Mccullough, in [place]. He is currently on azathioprine 50 mg daily, mesalamine 1.2 g QID, prednisone 60 mg daily, and adalimumab/Humira 80 mg injections q2 weeks. ED course Vitals: Blood pressure 110/76, pulse 93, saturating on room air Labs: Hemoglobin 10.1 hematocrit 33.1 MCV 67, MCH 20.4, MCHC 30.5, potassium 3.3 Urinalysis is leukocyte esterase positive, hematuria, pyuria In the ED patient received metoclopramide x 2 and 1 L bolus of normal saline PMH: Crohn's disease PSH: no surgical history SH: Patient denies smoking or drug use, occasionally drinks alcohol Allergies: Sulfamethizole Home Meds: azathioprine 50 mg daily, mesalamine 1.2 g QID, prednisone 60 mg daily, and adalimumab/Humira 80 mg injections q2 weeks. Review of Systems Review of Systems Systems Reviewed: All systems reviewed, normal except as documented Exam Vital Signs Temp Pulse Resp BP Pulse Ox O2 Del Method 98.0 F 65 18 118/67 100 Room Air 07/18/24 14:07 07/18/24 14:37 07/18/24 14:37 07/18/24 14:07 07/18/24 14:07 07/18/24 14:07 Narrative Exam GENERAL: A&Ox3 . Awake, Not in acute distress NEURO: no focal neurological deficits HEENT: Atraumatic, Normocephalic. mucous membranes moist. Eyes open, symmetrical, & clear HEART: Normal Heart Sounds LUNGS: Clear to auscultation with no wheezing or crackles. ABDOMEN: soft, non-distended, tenderness in LLQ SKIN: No Rash or ecchymoses, perianal fistula EXTREMITIES: No edema, tenderness, able to move all 4 extremities, pedal pulses palpated Results: Labs 07/18/24 08:20 07/18/24 08:20 Labs: Short CBC 07/18/24 Range/Units 08:20 WBC 5.7 (3.8-10.6) Thou/mm3 Hgb 10.1 L (13.5-16.0) g/dL Hct 33.1 L (41.0-53.0) % Plt Count 352 (140-440) Thou/mm3 BMP 07/18/24 08:20 Sodium 139 Potassium 3.3 L Chloride 104 Carbon Dioxide 27.2 BUN 10 Creatinine 0.7 Glucose 103 Calcium 8.8 Liver Function 07/18/24 Range/Units 08:20 Total Bilirubin 0.6 (0.3-1.2) mg/dL AST < 10 (0-34) U/L ALT < 7 L (10-49) U/L Alkaline Phosphatase 64 (46-116) U/L Albumin 3.6 (3.5-5.0) gm/dL Urine 07/18/24 Range/Units 08:39 Urine Color Yellow (Lt Yel-Yel) Urine Clarity Turbid A (Clear/Hazy) Urine pH 6.5 (5.0-7.0) Ur Specific [place] 1.017 (1.001-1.035) Urine Protein 1+ A (Neg - Trace) Urine Glucose (UA) Negative (Negative) Quality Measures Quality Measures none Medications Home Medications and Allergies Home Medications ?Medication ?Instructions ?Recorded ?Confirmed ?Type SALOFALK 500 mg PO 12/12/23 05/25/24 History diphenoxylate-atropine 2.5 See Rx Instructions .Route 01/01/24 05/25/24 History mg-0.025 mg tablet .COMPLEX PRN Diarrhea mesalamine 500 mg capsule,extended 1,000 mg PO BID 01/08/24 05/25/24 History release ([facility]) Allergies Allergy/AdvReac Type Severity Reaction Status Date / Time sulfamethizole Allergy Mild Rash Verified 05/25/24 14:59 Visit Medications Acetaminophen (Acetaminophen 325 Mg Tablet) 650 mg PO Q6H PRN PRN Reason: Fever >101.5 Stop: 08/17/24 14:29 Sodium Chloride (Ns) 1,000 mls @ 125 mls/hr IV .Q8H ONE Stop: 07/18/24 22:09 Last Admin: 07/18/24 14:14 Dose: 125 mls/hr Piperacillin Sod/Tazobactam (Sod 3.375 gm/ Sodium Chloride) 50 mls @ 12.5 mls/hr IV Q8HR [facility] Stop: 07/25/24 21:59 Oxycodone/Acetaminophen (Oxycodone/Apap 5/325 Tablet) 1 tab PO Q6H PRN PRN Reason: PAIN SCALE 4-6 (Moderate Stop: 07/23/24 14:29 Discontinued Medications Sodium Chloride (Ns) 250 mls @ 999 mls/hr IV .Q16M ONE Stop: 07/18/24 08:16 Last Admin: 07/18/24 08:36 Dose: Not Given Sodium Chloride (Ns) 1,000 mls @ 999 mls/hr IV .Q1H1M ONE Stop: 07/18/24 09:37 Last Infusion: 07/18/24 09:47 Dose: Infused Piperacillin Sod/Tazobactam (Sod 3.375 gm/ Sodium Chloride) 50 mls @ 100 mls/hr IV X1 ONE Stop: 07/18/24 14:08 Last Infusion: 07/18/24 14:44 Dose: Infused Sodium Chloride (Ns) 1,000 mls @ 75 mls/hr IV .[id number] [facility] Stop: 07/19/24 03:54 Last Admin: 07/18/24 14:44 Dose: Not Given Piperacillin Sod/Tazobactam (Sod 3.375 gm/ Sodium Chloride) 50 mls @ 100 mls/hr IV Q6HR [facility] Stop: 07/25/24 14:41 Last Admin: 07/18/24 14:44 Dose: Not Given Metoclopramide HCl (Metoclopramide Inj 5 Mg/Ml Vial 2 Ml) 10 mg IVP X1 ONE; Protocol Stop: 07/18/24 08:02 Last Admin: 07/18/24 08:30 Dose: 10 mg Metoclopramide HCl (Metoclopramide Inj 5 Mg/Ml Vial 2 Ml) 10 mg IVP X1 ONE; Protocol Stop: 07/18/24 13:37 Last Admin: 07/18/24 14:03 Dose: 10 mg Assessment & Plan Plan Mr. Mary is a 48 year-old Hong [place]er-speaking only male with history of Crohn's disease (diagnosed november 2023) presented to the ED complaining of generalized weakness and hiccups for the past 1 week. #Irritable bowel disease #Crohn's disease #Perianal fistula -Patient underwent colonoscopy and biopsies and was diagnosed with Crohn's disease in November 2023 -Patient has been feeling generalized weakness, hiccups, early satiety and intermittent loose stool with mucus -Patient has been compliant with all his medications. -CT of abdomen pelvis-inflammation medial to the cecum, right pyelonephritis and right Perianal abscess, diffuse colitis and proctitis Plan: -IV antibiotics and IV fluids ordered -Patient is on low fiber diet -Surgery was initially consulted by ED for acute appendicitis however CT scan is not evident of acute appendicitis therefore patient will not undergo surgical intervention for the perianal fistula. -Home mesalamine resumed #?Right Acute pyelonephritis #UTI -Patient is denying any symptoms of dysuria or urinary urgency but does complain of right flank pain -Ct scan is evident of acute pylonephritis -Urinalysis is leukocyte esterase positive, hematuria, pyuria -Pt is on ICV antibiotics- zosyn 07/18- #Microcytic anemia -Hgb 10.1, Hct 33.1, MCV 67 -no signs of active bleeding, likely in the setting of crohns disease, will continue to monitor with daily cbc #Hypokalemia -Potassium on admission 3.3 -will continue to monitor and repleted as needed Health Maintenance Disposition: Medsurg for IV antibiotics DVT Prophylaxis: enoxaparin 40mg Qdaily GI Prophylaxis: no indicated Diet: low fiber diet Lines: Peripheral lines Code status: Full Assessment and plan discussed with my attending physician Dr. Tiffanie Sidhu (PGY-1)- Internal medicine resident Attending Provider Attestation/Addendum I have discussed and was present for the essential components of the history, physical examination, diagnosis, and treatment plan with the resident. I agree with the patient's care as documented by the resident and amended herein by me. Jd Moreno DO. Patient seen and evaluated in the emergency department. Patient admitted for nausea, vomiting and hiccups x 1 week. Patient has history of Crohn's and anal fistula, does follow with specialist in [place] and at our [facility]. Presently on mesalamine, prednisone and recently on a course of Flagyl at home. In the ED, vital signs stable, the patient was afebrile, CBC remarkable for hemoglobin of 10.1, CMP demonstrating a low potassium of 3.3. Urinalysis was positive. CTAP did demonstrate perianal abscess, possible pyelonephritis and bowel inflammation., He was given 3250 mL of NS and Zosyn in the ED Patient admitted to [facility], will continue Zosyn at this time for perianal abscess which will also cover for any potential UTI and pyelonephritis. Urine cultures are pending. General surgery was also consulted in the ED emergency department, however no surgical intervention at this time. Potassium will be repleted, iron panel ordered for the patient's anemia, we will consider GI consult in the a.m. if warranted. Although this document has been carefully reviewed, there may still be some phonetic and other typographical errors. These errors are purely grammatical due to imperfections in the software program and should not be construed in any way to compromise the substance of the patient's medical care during this visit.
[2024-07-18 17:07] LABS: Path Review Blood Smear Sent to Pathologist
[2024-07-18] MEDS: POTASSIUM CHLORIDE 20 mEq TABCR 40 MEQ PO (18:15)
[2024-07-18] MEDS: MESALAMINE 250 MG CAPSULE.ER 500 MG PO (19:43)
[2024-07-18] MEDS: PANTOPRAZOLE INJ 40 MG VIAL IV (20:32)
[2024-07-18] MEDS: ONDANSETRON INJ 2 MG/ML INJ 2 ML 4 MG IV (20:32)
[2024-07-19] VITALS (7 sets, daily range): BP systolic 91–123; BP diastolic 61–78; PULSE 62–84; RESP 16–99; TEMP 36.6–37.6; O2SAT 95–99
[2024-07-19] MEDS: ONDANSETRON INJ 2 MG/ML INJ 2 ML 4 MG IV ×2 (05:33→21:53)
[2024-07-19] MEDS: PIPER/TAZO INJ 3.375 GM in SODIUM CHLORIDE 0.9% (Popper) 50 ML IV ×3 (05:34→21:51)
[2024-07-19 06:17] LABS: Basophils % (Auto) 1 % (0-2.5); Eosinophils % (Auto) 1 % (0-10); Hematocrit 28.1 % (41.0-53.0); Immature Granulocytes % (Auto) 0 % (0-0); Immature Granulocytes Auto 0.01 Thou/mm3 (0.00-0.00); Lymphocytes # (Auto) 1.3 Thou/mm3 (1.0-4.8); Lymphocytes % (Auto) 24 % (10-50); Mean Corpuscular HGB Conc 30.6 g/dl (31.0-37.0); Mean Corpuscular Hemoglobin 20.6 pg (25.0-35.0); Mean Corpuscular Volume 67 fL (80-100); Monocytes # (Auto) 0.5 Thou/mm3 (0.0-0.8); Monocytes % (Auto) 9 % (0-12); Neutrophils # (Auto) 3.5 Thou/mm3 (1.8-7.7); Neutrophils % (Auto) 65 % (37-80); Nucleated Red Blood Cell % 0 /100 WBC (0); Platelet Count 279 Thou/mm3 (140-440); RDW Standard Deviation 42.4 fL (35.1-43.9); Red Blood Count 4.17 Miln/mm3 (4.50-5.90); White Blood Count 5.3 Thou/mm3 (3.8-10.6)
[2024-07-19 06:18] LABS: Hemoglobin 8.6 g/dL (13.5-16.0)
[2024-07-19 06:55] LABS: Alanine Aminotransferase < 7 U/L (10-49); Albumin/Globulin Ratio 1.3 (1.2-2.2); Alkaline Phosphatase 51 U/L (46-116); Anion Gap 8 (7-16); Aspartate Amino Transferase < 8 U/L (0-34); BUN/Creatinine Ratio 9 Ratio (12-20); Bilirubin,Total 0.4 mg/dL (0.3-1.2); Blood Urea Nitrogen 6 mg/dL (9-23); Calcium 7.8 mg/dL (8.3-10.6); Calcium (Corrected) 8.6 mg/dL (8.5-10.1); Carbon Dioxide 23.9 mMol/L (20.0-31.0); Chloride 107 mMol/L (98-107); Creatinine (Component) 0.7 mg/dL (0.6-1.3); Estimated Creatinine Clearance 97.1 mL/min (>60); Globulin 2.3 gm/dL (2.3-3.5); Glucose 108 mg/dL (74-106); Magnesium 1.9 mg/dL (1.6-2.6); Osmolality,Calculated 276 (275-295); Phosphorous 3.3 mg/dL (2.4-5.1); Potassium 3.6 mMol/L (3.4-5.1); Sodium 139 mMol/L (136-145); Total Protein 5.3 gm/dL (5.7-8.2); eGFR > 60 See Note
[2024-07-19 07:34] LABS: Ferritin 344 ng/mL (10.5-307.3); Iron 6 mcg/dL (65-175); Percent Iron Saturation 3 % (20-55); Total Iron Binding Capacity 161 mcg/dL (250-425); Unsaturated Iron Binding 155 (225-295)
[2024-07-19] MEDS: predniSONE 5 MG TABLET PO (07:50)
--- NOTE | 2024-07-19 12:48 | ESPR_ITS ---
Documentation for date of: 07/19/24 Subjective Subjective Interval history: Patient seen and examined at bedside this morning. No acute overnight events. Vitals stable, labs reviewed. Hemoglobin with mild decrease, however no signs of bleed noted. Possibly dilutional after IV fluid resuscitation. Urine cultures pending. Patient complains of hiccups which leads to worsened abdominal pain. Will continue IV antibiotics at this time, with no plans for surgery as of now. He is wondering when he will be discharged as he has a court case on Saturday. Will also resume home mesalamine. Exam Vital Signs Temp Pulse Resp BP Pulse Ox O2 Del Method 98.3 F 71 17 92/61 97 Room Air 07/19/24 12:00 07/19/24 12:00 07/19/24 12:00 07/19/24 12:00 07/19/24 12:07/19/24 12:00 Narrative Exam Gen: AAOx3, Maltese-speaking male, pleasant to speak with and answers questions appropriately HEENT: NCAT, PERRLA, EOMI, MMM CVS: normal S1, S2. RRR. No MRG Resp: CTA B/L. No rhonchi, rales, crackles or wheezing Abd: soft, TTP in LLQ, no rebound tenderness, negative Rovsing sign, non- distended. BS+ in all 4 quadrants : Perianal fistula MSK: Good ROM in BUE & BLE. No edema or rash. Neuro: CN II-XII grossly intact. No focal deficits noted Objective Labs 07/19/24 05:53 07/19/24 05:53 Labs: Laboratory Results - last 24 hr 07/18/24 07/19/24 08:20 05:53 WBC 5.3 RBC 4.17 L Hgb 8.6 L Hct 28.1 L MCV 67 L MCH 20.6 L MCHC 30.6 L RDW Std Deviation 42.4 Plt Count 279 D Neut % (Auto) 65 Lymph % (Auto) 24 [place] % (Auto) 9 Eos % (Auto) 1 Baso % (Auto) 1 Neut # (Auto) 3.5 Lymph # (Auto) 1.3 [place] # (Auto) 0.5 Eos # (Auto) 0.0 Baso # (Auto) 0.0 Immature Gran # (Auto) 0.01 H Absolute Nucleated RBC 0.00 Immature Gran % 0 Nucleated RBC % 0 Smear Path Review Sent to Pathologist Sodium 139 Potassium 3.6 Chloride 107 Carbon Dioxide 23.9 Anion Gap 8 BUN 6 L Creatinine 0.7 Estim Creat Clear Calc 97.1 eGFR > 60 BUN/Creatinine Ratio 9 L Glucose 108 H Calculated Osmolality 276 Calcium 7.8 L Corrected Calcium 8.6 Phosphorus 3.3 Magnesium 1.9 Iron 6 L TIBC 161 L Iron Saturation 3 L Unsat Iron Binding 155 L Ferritin 344 H Total Bilirubin 0.4 AST < 8 ALT < 7 L Alkaline Phosphatase 51 D Total Protein 5.3 L Albumin 3.0 L D Globulin 2.3 Albumin/Globulin Ratio 1.3 Quality Measures Quality Measures VTE prophylaxis Assessment & Plan Assessment Current Active Medications: Generic Name Dose Route Start Last Admin Trade Name Freq PRN Reason Stop Dose Admin Acetaminophen 650 mg 07/19/24 11:16 Acetaminophen 325 Mg Tablet PO 08/17/24 14:29 Q6H PRN Fever >100.3 or pain Piperacillin Sod/Tazobactam 50 mls @ 12.5 mls/hr 07/18/24 22:00 07/19/24 05:34 Sod 3.375 gm/ Sodium Chloride IV 07/25/24 21:59 12.5 mls/hr Q8HR SEB Administration Ondansetron HCl 4 mg 07/18/24 19:47 07/19/24 05:33 Ondansetron Inj 2 Mg/Ml Inj 2 Ml IV 08/17/24 19:46 4 mg Q6HR PRN Administration NAUSEA OR VOMITING Protocol Oxycodone/Acetaminophen 1 tab 07/18/24 14:30 Oxycodone/Apap 5/325 Tablet PO 07/23/24 14:29 Q6H PRN PAIN SCALE 4-6 (Moderate Prednisone 5 mg 07/19/24 09:00 07/19/24 07:50 Prednisone 5 Mg Tablet PO 08/18/24 08:59 5 mg QDAY SEB Administration Plan Patient is a 49-year-old male with Crohn's disease (diagnosed November 2023) who presented to the ED with weakness, hiccups and was found to have a perianal fistula, with concern for pyelonephritis as patient had CVA tenderness and UA consistent with UTI. Patient was started on IV antibiotics and IV fluids. General surgery was consulted however patient does not require I&D at this time. #Crohn's disease #Perianal fistula #Weakness #Abdominal pain Abscess as noted on exam, and seen on CT A/P (3 x 4 cm) Patient started on IV Zosyn Continue prednisone 5mg, home mesalamine at 1000mg twice daily Low fiber diet Gastroenterology consulted, appreciate recs General Surgery consulted: No need for I&D at this time Oxycodone for pain prn #?Acute pyelonephritis #UTI UA consistent with UTI; patient with CVA tenderness on exam; CT A/P also shows pyelonephritis Urine culture pending IV Zosyn to cover #Microcytic anemia Hgb 8.6, MCV 67 No active bleed at this time. Drop in hemoglobin appears to be dilutional after IV fluid resuscitation Iron panel consistent with iron deficiency anemia, likely from poor absorption in setting of Crohn's disease Patient may benefit from IV iron #Hiccups Patient endorses having intermittent hiccups, leading to worsening abdominal pain Can consider Thorazine if hiccups become intractable Dispo: Continue IV antibiotics; pending urine culture GI PPx: None DVT PPx: Lovenox Diet: Low fiber CODE STATUS: Full code Patient seen and care discussed with my attending Dr. Moreno. Roxanne Keating MD PGY-3 Attending Provider Attestation/Addendum I have discussed and was present for the essential components of the history, physical examination, diagnosis, and treatment plan with the resident. I agree with the patient's care as documented by the resident and amended herein by me. Jd Moreno DO. Although this document has been carefully reviewed, there may still be some phonetic and other typographical errors. These errors are purely grammatical due to imperfections in the software program and should not be construed in any way to compromise the substance of the patient's medical care during this visit.
--- NOTE | 2024-07-19 16:03 | PC.SS ---
Laureano Mary is 49 year old male admitted to [facility] for Perianal Abscess. SS conducted bedside contact with the patient to complete initial assessment and to discuss discharge planning.? SW used all precautionary measures to complete initial. Role and reason for the contact was explained to Laureano. Pt is alert and oriented times 4. SS spoke with João CASTILLO to assist with translation. Patient confirmed demographic information confirming information correct on facesheet. Pt lives with children. Patient identifies Kourtney Mary, daughter, , as his surrogate decision maker. Pt states he is independent and does not need assistance with ADLs. Pt does not use DME nor O2. Pt states he does not have history of mental health or substance history. Pts identify PCP Mauro Jones. Pharmacy of choice is [facility]. Discharge options discussed and the pt will return home. Pt stated no diabetes; pt stated no dialysis services. SS discussed [employer] Directive, pt was not receptive. ?No further intervention required at this time, social sciences instructor would be available to address any further concerns. DC Plan: Home Contact: Kourtney Mary, nitin, Address: Confirmed on face sheet PCP: Mauro Jones
--- NOTE | 2024-07-19 16:07 | PC.SS ---
SS stopped by at 12:10 pt sleeping will go by later to complete initial
--- NOTE | 2024-07-19 17:54 | PD.IMCONS ---
HPI Data of Consult Requesting Physician: Glynn Moreno DO Primary Care Provider: Mauro Jones MD Consult Narrative Reason for consult: Persistent hiccups nausea vomiting generalized weakness History of present illness: 49 years old male came into the emergency room with intermittent hiccups nausea vomiting and generalized weakness CT scan of the abdomen pelvis with contrast showed inflammation medial to the cecum right pyelonephritis right Moira anal abscess Patient follows a distribution engineering technologist Dr. Wynne in [facility] and currently on azathioprine 50 mg once a day mesalamine 1.2 g 4 times daily prednisone 60 mg once a day and Humira 80 mg every 2 weeks subcu Patient has a longstanding history of perianal abscess which has been draining cc:: cc: Glynn Moreno DO Review of Systems Review of Systems Systems Reviewed: All systems reviewed, normal except as documented Past Medical History Surgical History OTHER SURGICAL HX: As in the history of present illness Meds Home Medications and Allergies Home Medications ?Medication ?Instructions ?Recorded ?Confirmed ?Type SALOFALK 500 mg PO 12/12/23 05/25/24 History diphenoxylate-atropine 2.5 See Rx Instructions .Route 01/01/24 05/25/24 History mg-0.025 mg tablet .COMPLEX PRN Diarrhea mesalamine 500 mg capsule,extended 1,000 mg PO BID 01/08/24 05/25/24 History release ([facility]) Allergies Allergy/AdvReac Type Severity Reaction Status Date / Time sulfamethizole Allergy Mild Rash Verified 05/25/24 14:59 Exam Vital Signs Temp Pulse Resp BP Pulse Ox O2 Del Method 98.3 F 71 17 92/61 97 Room Air 07/19/24 12:00 07/19/24 12:00 07/19/24 12:00 07/19/24 12:00 07/19/24 12:00 07/19/24 12:00 Constitutional Comments: Chronically ill-appearing Routine Respiratory Exam Comments: Normal to auscultation Routine Abdominal Exam Comments: Right-sided abdominal tenderness positive bowel sounds Results Labs 07/19/24 05:53 07/19/24 05:53 Labs: Short CBC 07/19/24 Range/Units 05:53 WBC 5.3 (3.8-10.6) Thou/mm3 Hgb 8.6 L (13.5-16.0) g/dL Hct 28.1 L (41.0-53.0) % Plt Count 279 D (140-440) Thou/mm3 BMP 07/19/24 05:53 Sodium 139 Potassium 3.6 Chloride 107 Carbon Dioxide 23.9 BUN 6 L Creatinine 0.7 Glucose 108 H Calcium 7.8 L Liver Function 07/19/24 Range/Units 05:53 Total Bilirubin 0.4 (0.3-1.2) mg/dL AST < 8 (0-34) U/L ALT < 7 L (10-49) U/L Alkaline Phosphatase 51 D (46-116) U/L Albumin 3.0 L D (3.5-5.0) gm/dL Assessment and Plan Additional Assessment & Plan Additional Plan: # Persistent hiccups with nausea vomiting Patient may have a history of gastroesophageal disease with multiple ulcers distal esophagus Plan Consent obtained for fiberoptic esophagogastroduodenoscopy with possible biopsy possible therapeutic intervention under intravenous moderate sedation scheduled for tomorrow N.p.o. midnight tonight except p.o. meds # Crohn's disease with perianal fistula and perianal abscess Solu-Medrol 40 mg IV push every 12 Continue azathioprine as well as mesalamine along with Humira He can follow-up with his distribution engineering technologist in [place] upon discharge Dr. Mccullough Recommend consultation with Dr. Head for the perianal abscess and fistula may need surgical intervention Thank you once again for the opportunity to participate in the care of this patient
[2024-07-19] MEDS: MESALAMINE 250 MG CAPSULE.ER 1000 MG PO (21:50)
[2024-07-20] VITALS (17 sets, daily range): BP systolic 92–123; BP diastolic 59–75; PULSE 56–77; RESP 9–93; TEMP 36–37.4; O2SAT 88–100
[2024-07-20] MEDS: PIPER/TAZO INJ 3.375 GM in SODIUM CHLORIDE 0.9% (Popper) 50 ML IV ×3 (05:21→21:25)
[2024-07-20 06:33] LABS: Basophils % (Auto) 0 % (0-2.5); Eosinophils # (Auto) 0.1 Thou/mm3 (0.0-0.5); Eosinophils % (Auto) 1 % (0-10); Hematocrit 28.3 % (41.0-53.0); Immature Granulocytes % (Auto) 0 % (0-0); Immature Granulocytes Auto 0.01 Thou/mm3 (0.00-0.00); Lymphocytes # (Auto) 1.7 Thou/mm3 (1.0-4.8); Lymphocytes % (Auto) 35 % (10-50); Mean Corpuscular HGB Conc 30.4 g/dl (31.0-37.0); Mean Corpuscular Hemoglobin 20.5 pg (25.0-35.0); Mean Corpuscular Volume 67 fL (80-100); Monocytes # (Auto) 0.4 Thou/mm3 (0.0-0.8); Monocytes % (Auto) 9 % (0-12); Neutrophils # (Auto) 2.6 Thou/mm3 (1.8-7.7); Neutrophils % (Auto) 55 % (37-80); Nucleated Red Blood Cell % 0 /100 WBC (0); Platelet Count 294 Thou/mm3 (140-440); White Blood Count 4.8 Thou/mm3 (3.8-10.6)
[2024-07-20 06:50] LABS: Hemoglobin 8.6 g/dL (13.5-16.0)
[2024-07-20 07:09] LABS: Alanine Aminotransferase < 7 U/L (10-49); Albumin, Serum 3.1 gm/dL (3.5-5.0); Albumin/Globulin Ratio 1.2 (1.2-2.2); Alkaline Phosphatase 51 U/L (46-116); Anion Gap 10 (7-16); Aspartate Amino Transferase 10 U/L (0-34); BUN/Creatinine Ratio 10 Ratio (12-20); Bilirubin,Total 0.3 mg/dL (0.3-1.2); Blood Urea Nitrogen 7 mg/dL (9-23); Calcium 8.6 mg/dL (8.3-10.6); Calcium (Corrected) 9.3 mg/dL (8.5-10.1); Carbon Dioxide 26.4 mMol/L (20.0-31.0); Chloride 107 mMol/L (98-107); Creatinine (Component) 0.7 mg/dL (0.6-1.3); Estimated Creatinine Clearance 97.1 mL/min (>60); Globulin 2.6 gm/dL (2.3-3.5); Glucose 96 mg/dL (74-106); Osmolality,Calculated 282 (275-295); Potassium 3.2 mMol/L (3.4-5.1); Sodium 143 mMol/L (136-145); Total Protein 5.7 gm/dL (5.7-8.2); eGFR > 60 See Note
[2024-07-20] MEDS: predniSONE 5 MG TABLET PO (08:22)
[2024-07-20] MEDS: MESALAMINE 250 MG CAPSULE.ER 1000 MG PO ×2 (08:23→21:25)
[2024-07-20] MEDS: POTASSIUM CHLORIDE 20 mEq TABCR 40 MEQ PO (09:22)
[2024-07-20] MEDS: azaTHIOprine 50 MG TABLET PO (10:00)
[2024-07-20] MEDS: RINGERS LACTATED 500 ML 500 ML 999 ML IV (10:01)
[2024-07-20] MEDS: POT PHOS 15 mMol in NS 250 ML 15 MMOL/250 ML BAG 62.5 MMOL IV (10:01)
[2024-07-20 10:15] LABS: Lactate (Lactic Acid) 0.9 mMol/L (0.4-2.0)
--- NOTE | 2024-07-20 13:27 | ESPR_ITS ---
<Statement entered by Benton Mar MD - 07/20/24 20:30> Patient was seen and examined at the bedside.No acute over night events werer reported. Hemoglobin remained stable. GI specialist recommended to start patient on azathioprine 50 mg once daily, Solu-Medrol and continue mesalamine. He recommended that he will to EGD today and keep the patient n.p.o. for now. Electrolytes were repleted. All labs and orders were reviewed. I saw and examined the patient, and I agree with current management stated by Dr Krystin MD,PGY1. Plan of care was discussed with the attending physician and resident physician. Disclaimer: Despite multiple revisions, due to the dictation software being used, the document bellow may not be free of grammatical errors including phonetic/typographic errors. However, this does not deter from our commitment to providing health care in the patient's best interest in mind. Dr. Jeferson MD, PGY 2 Documentation for date of: 07/20/24 Subjective Subjective Interval history: Laureano Mary is a 49-year-old male with a past medical history of Crohn's disease (diagnosed November 2023) who presented to the ED with weakness, hiccups and was found to have a perianal fistula, with concern for pyelonephritis as patient had CVA tenderness and UA consistent with UTI. Patient was started on IV antibiotics and IV fluids. General surgery was consulted however patient does not require I&D at this time. 07/20: Seen and examined at bedside this morning. No acute overnight events. Vitals stable, labs reviewed. Hemoglobin with mild decrease, however no signs of bleed noted. Possibly dilutional after IV fluid resuscitation. Urine cultures pending. Patient complains of hiccups which leads to worsened abdominal pain. Will continue IV antibiotics at this time, with no plans for surgery as of now. He is wondering when he will be discharged as he has a court case on Saturday. Will also resume home mesalamine. 07/21: Seen and examined at bedside this morning. No acute overnight events. Hemoglobin still remains low but stable and patient denies any signs of active bleeding, including hematochezia, melena, hemoptysis, or hematemesis. GI following and plans for EGD today to evaluate hiccups and suspect possible GERD or ulcers in distal esophagus. Placed NPO and will await further recommendations after EGD. Otherwise, K noted to be 3.2 and repelted in AM but otherwise CMP unremarkable. Home azathioprine started and will change steroids to Solu-Medrol 40 mg IV BID. Exam Vital Signs Temp Pulse Resp BP Pulse Ox O2 Del Method 96.8 F 60 16 105/67 98 Room Air 07/20/24 11:06 07/20/24 11:06 07/20/24 11:06 07/20/24 11:06 07/20/24 11:06 07/20/24 11:06 Narrative Exam General: AOx3, laying comfortably in bed, able to speak full sentences HEENT: NC/AT, mucous membranes moist, bilateral sclera anicteric Cardiovascular: regular rate and rhythm, S1/S2 present, no murmurs appreciated Pulmonary: clear to auscultation bilaterally, no rales/rhonchi/wheezes Abdominal: tenderness to palpation in lower quadrants, soft, nondistended, no guarding Musculoskeletal: normal ROM, no peripheral edema Skin: warm and dry, intact, no rashes Neuro: CN II-XII intact, no focal deficits Objective Labs 07/21/24 05:19 07/21/24 05:19 Labs: Laboratory Results - last 24 hr 07/20/24 07/20/24 05:41 10:00 WBC 4.8 RBC 4.20 L Hgb 8.6 L Hct 28.3 L MCV 67 L MCH 20.5 L MCHC 30.4 L RDW Std Deviation 42.0 Plt Count 294 Neut % (Auto) 55 Lymph % (Auto) 35 [place] % (Auto) 9 Eos % (Auto) 1 Baso % (Auto) 0 Neut # (Auto) 2.6 Lymph # (Auto) 1.7 [place] # (Auto) 0.4 Eos # (Auto) 0.1 Baso # (Auto) 0.0 Immature Gran # (Auto) 0.01 H Absolute Nucleated RBC 0.00 Immature Gran % 0 Nucleated RBC % 0 Sodium 143 Potassium 3.2 L Chloride 107 Carbon Dioxide 26.4 Anion Gap 10 BUN 7 L Creatinine 0.7 Estim Creat Clear Calc 97.1 eGFR > 60 BUN/Creatinine Ratio 10 L Glucose 96 Calculated Osmolality 282 Lactic Acid 0.9 Calcium 8.6 Corrected Calcium 9.3 Magnesium 2.0 Total Bilirubin 0.3 AST 10 ALT < 7 L Alkaline Phosphatase 51 Total Protein 5.7 Albumin 3.1 L Globulin 2.6 Albumin/Globulin Ratio 1.2 Quality Measures Quality Measures VTE prophylaxis Assessment & Plan Assessment Current Active Medications: Generic Name Dose Route Start Last Admin Trade Name Freq PRN Reason Stop Dose Admin Acetaminophen 650 mg 07/19/24 11:16 Acetaminophen 325 Mg Tablet PO 08/17/24 14:29 Q6H PRN Fever >100.3 or pain Azathioprine 50 mg 07/20/24 09:00 07/20/24 10:00 Azathioprine 50 Mg Tablet PO 08/19/24 08:59 50 mg QDAY SEB Administration Piperacillin Sod/Tazobactam 50 mls @ 12.5 mls/hr 07/18/24 22:00 07/20/24 05:21 Sod 3.375 gm/ Sodium Chloride IV 07/25/24 21:59 12.5 mls/hr Q8HR SEB Administration Mesalamine 1,000 mg 07/19/24 21:00 07/20/24 08:23 Mesalamine 250 Mg Capsule.Er PO 08/18/24 20:59 1,000 mg BID SEB Administration Methylprednisolone Sodium Succinate 40 mg 07/20/24 21:00 Methylprednisolone Sod Succ 40 Mg Vial IVP 07/27/24 20:59 Q12HR SEB Ondansetron HCl 4 mg 07/18/24 19:47 07/19/24 21:53 Ondansetron Inj 2 Mg/Ml Inj 2 Ml IV 08/17/24 19:46 4 mg Q6HR PRN Administration NAUSEA OR VOMITING Protocol Oxycodone/Acetaminophen 1 tab 07/18/24 14:30 Oxycodone/Apap 5/325 Tablet PO 07/23/24 14:29 Q6H PRN PAIN SCALE 4-6 (Moderate Plan Laureano Mary is a 49-year-old male with a past medical history of Crohn's disease (diagnosed November 2023) who presented to the ED with weakness, hiccups and was found to have a perianal fistula, with concern for pyelonephritis as patient had CVA tenderness and UA consistent with UTI. Patient was started on IV antibiotics and IV fluids. General surgery was consulted however patient does not require I&D at this time. #Crohn's disease #Perianal fistula #Abdominal pain Abscess as noted on exam, and seen on CT A/P (3 x 4 cm) ? Zosyn 3.375 g IV every 8 hours (07/18-) ? Azathioprine 50 mg p.o. daily ? Mesalamine 1000 mg p.o. twice daily ? Methylprednisolone 40 mg IV every 12 hours ? GI consulted, appreciate recommendations ? General Surgery consulted, no need for I&D at this time ? Oxycodone for pain as needed #? Acute pyelonephritis #UTI UA consistent with UTI and CVA tenderness noted on exam. CT A/P noted acute right-sided pyelonephritis. ? Urine culture 07/18: Mixed jose david, possible contamination ? Zosyn as above #Hiccups Endorses intermittent hiccups, leading to worsening abdominal pain. GI consulted and plans for EGD to evaluate, suspect underlying GERD versus PUD. ? N.p.o. ? Follow-up EGD results #Microcytic anemia Hgb 8.6, MCV 67. No active bleeding at this time. Drop in hemoglobin likely due to be dilutional after IVF resuscitation. Iron panel consistent with iron deficiency anemia, likely from poor absorption in setting of Crohn's disease. ? Patient may benefit from IV iron Hospital management: Dispo: Continue IV antibiotics; pending urine culture GI PPx: None DVT PPx: Lovenox Diet: Low fiber CODE STATUS: Full code ----- Plan discussed with attending physician Dr. Moreno and senior resident physician Dr. Jeferson Mcclelland MD PGY-1 Internal Medicine Attending Provider Attestation/Addendum I have discussed and was present for the essential components of the history, physical examination, diagnosis, and treatment plan with the resident. I agree with the patient's care as documented by the resident and amended herein by me. Jd Moreno DO. Although this document has been carefully reviewed, there may still be some phonetic and other typographical errors. These errors are purely grammatical due to imperfections in the software program and should not be construed in any way to compromise the substance of the patient's medical care during this visit.
--- NOTE | 2024-07-20 15:45 | PD.SURCONS ---
HPI Consult details History of present illness: 49M with Crohn's who initially presented with a perianal abscess and associated fistula s/p EUA with seton placement 04/2024, seton removed 12/31/2023, admitted with abdominal pain and findings of pyelonephritis. Pt underwent CT AP which also indicated a perianal abscess up to 4cm, however he states the perianal region is stably draining and he denies pain to the area. His BMs range between constipation and diarrhea and he continues to have difficulty following up with his GI in [place], stating that it is difficult to get appts and that sometimes when he is there he is not having any symptoms Review of Systems Review of Systems ROS Unobtainable: All systems reviewed & no additional complaints except as documented Meds Home Medications and Allergies Home Medications ?Medication ?Instructions ?Recorded ?Confirmed ?Type SALOFALK 500 mg PO 12/12/23 05/25/24 History diphenoxylate-atropine 2.5 See Rx Instructions .Route 01/01/24 05/25/24 History mg-0.025 mg tablet .COMPLEX PRN Diarrhea mesalamine 500 mg capsule,extended 1,000 mg PO BID 01/08/24 05/25/24 History release ([place]) Allergies Allergy/AdvReac Type Severity Reaction Status Date / Time sulfamethizole Allergy Mild Rash Verified 05/25/24 14:59 Exam Vital Signs Temp Pulse Resp BP Pulse Ox O2 Del Method 96.8 F 60 16 105/67 98 Room Air 07/20/24 11:06 07/20/24 11:06 07/20/24 11:06 07/20/24 11:06 07/20/24 11:06 07/20/24 11:06 Constitutional Constitutional: no acute distress Routine Respiratory Exam Respiratory: Present no resp distress Routine Rectal Exam Comments: right perianal chronic wound with purulent drainage, no erythema, no fluctuance or tenderness Results Results: Laboratory Laboratory results: results reviewed Results: Imaging CT scan - abdomen: report reviewed Assessment & Plan Plan 49M with Crohn's who initially presented with a perianal abscess and associated fistula s/p EUA with seton placement 04/2024, seton removed 12/31/2023, admitted with pyelonephritis. On exam he does not have signs of an abscess but what is most likely being represented on the CT is his chronic perianal fistula which does not need surgical intervention for now Appreciate GI recs Follow up with GI as outpt
--- NOTE | 2024-07-20 18:46 | SUR.PHASEI ---
pt received from OR in recovery bay 5. pt asleep but responds to voice, breathing unlabored on nc 2l. v/s stable. report received from Myranda BEYER.
--- NOTE | 2024-07-20 19:35 | SUR.PHASEI ---
pt awake and alert, breathing unlabored on room air. v/s stable. report called to Augustina BEYER. pt will be transferred to floor at this time.
[2024-07-20] MEDS: PANTOPRAZOLE INJ 40 MG VIAL IV (21:24)
[2024-07-21] VITALS: BP 112/68; PULSE 59; RESP 16; TEMP 36.3; O2SAT 98
[2024-07-21 04:00] VITALS: BP 93/54; PULSE 54; RESP 16; TEMP 36.4; O2SAT 97
[2024-07-21] MEDS: PIPER/TAZO INJ 3.375 GM in SODIUM CHLORIDE 0.9% (Popper) 50 ML IV (05:10)
[2024-07-21 05:58] LABS: Basophils % (Auto) 0 % (0-2.5); Eosinophils % (Auto) 0 % (0-10); Hematocrit 31.4 % (41.0-53.0); Hemoglobin 9.2 g/dL (13.5-16.0); Immature Granulocytes % (Auto) 0 % (0-0); Immature Granulocytes Auto 0.01 Thou/mm3 (0.00-0.00); Lymphocytes # (Auto) 0.9 Thou/mm3 (1.0-4.8); Lymphocytes % (Auto) 28 % (10-50); Mean Corpuscular HGB Conc 29.3 g/dl (31.0-37.0); Mean Corpuscular Hemoglobin 20.3 pg (25.0-35.0); Mean Corpuscular Volume 69 fL (80-100); Monocytes % (Auto) 1 % (0-12); Neutrophils # (Auto) 2.2 Thou/mm3 (1.8-7.7); Neutrophils % (Auto) 71 % (37-80); Nucleated Red Blood Cell % 0 /100 WBC (0); Platelet Count 303 Thou/mm3 (140-440); RDW Standard Deviation 43.4 fL (35.1-43.9); Red Blood Count 4.54 Miln/mm3 (4.50-5.90); White Blood Count 3.1 Thou/mm3 (3.8-10.6)
[2024-07-21 06:57] LABS: Alanine Aminotransferase < 7 U/L (10-49); Albumin, Serum 3.4 gm/dL (3.5-5.0); Albumin/Globulin Ratio 1.3 (1.2-2.2); Alkaline Phosphatase 55 U/L (46-116); Anion Gap 8 (7-16); Aspartate Amino Transferase < 8 U/L (0-34); BUN/Creatinine Ratio 9 Ratio (12-20); Bilirubin,Total 0.3 mg/dL (0.3-1.2); Blood Urea Nitrogen 7 mg/dL (9-23); Calcium 8.9 mg/dL (8.3-10.6); Calcium (Corrected) 9.4 mg/dL (8.5-10.1); Carbon Dioxide 27.4 mMol/L (20.0-31.0); Chloride 106 mMol/L (98-107); Creatinine (Component) 0.8 mg/dL (0.6-1.3); Globulin 2.6 gm/dL (2.3-3.5); Glucose 139 mg/dL (74-106); Magnesium 2.1 mg/dL (1.6-2.6); Osmolality,Calculated 281 (275-295); Phosphorous 5.5 mg/dL (2.4-5.1); Potassium 4.2 mMol/L (3.4-5.1); Sodium 141 mMol/L (136-145); eGFR > 60 See Note
[2024-07-21 07:35] VITALS: BP 108/63; PULSE 60; RESP 16; TEMP 36; O2SAT 100
[2024-07-21 10:00] VITALS: O2SAT 97
[2024-07-21] MEDS: azaTHIOprine 50 MG TABLET PO (10:19)
[2024-07-21] MEDS: PANTOPRAZOLE INJ 40 MG VIAL IV (10:20)
[2024-07-21] MEDS: MESALAMINE 250 MG CAPSULE.ER 1000 MG PO (10:43)
[2024-07-21 11:48] VITALS: BP 108/65; PULSE 58; RESP 16; TEMP 36.4; O2SAT 97
--- NOTE | 2024-07-21 13:57 | ESDS_ITS ---
<Statement entered by Benton Mar MD - 07/21/24 16:09> I saw and examined the patient, and I agree with current management stated by Dr Krystin MD,PGY1. Plan of care was discussed with the attending physician and resident physician. Disclaimer: Despite multiple revisions, due to the dictation software being used, the document bellow may not be free of grammatical errors including phonetic/typographic errors. However, this does not deter from our commitment to providing health care in the patient's best interest in mind. Dr. Isabela MD, PGY 2 Planned Discharge Date 07/21/24 DS: Providers Provider Date of admission: 07/18/24 14:30 Primary care physician: Mauro Jones MD Admitting Provider: Glynn Moreno DO Attending Provider on Admission: Glynn Moreno DO Consults: 07/18/24 18:19 [facility] Referral - Nutrition Routine Comment: Positive screening for nutrition needs. 07/19/24 12:12 Consult to Gastroenterology Routine Comment: Crohns Consulting Provider: Pardeep Butler 07/19/24 15:11 Consult to General Surgery Routine Comment: Consulting Provider: Maira Head Attending Provider on DC: Colten Mcclelland MD Discharging Provider: Colten Mcclelland MD DS: Diagnosis Problem List Completed Was Problem List Reviewed/Reconciled?: Yes Hospital Course Hospital Course Hospital course: Laureano Mary is a 48 year-old Portuguese-speaking male with history of Crohn's disease (diagnosed November 2023) who presented to the ED complaining of generalized weakness and hiccups for the past 1 week. States he has a known history of IBD and has been feeling ill ever since the diagnosis with worsening intermittent symptoms. States non-stop hiccups are the most bothersome to him and he is unable to eat very much due to early satiety and is compliant with his medications. He reports having a perianal abscess which has been draining for a while causing a perianal fistula. For the past 1 week, he has been having increased bruising, fever, chills and feeling cold in his hands and feet and unable to eat very much. Also had off and on formed stool with episodes of diarrhea and mucus, but denies melena or hematochezia. Follows the [facility] and has been compliant with all his medications and followed by card player, Dr. Mccullough, in [place]. He is on azathioprine 50 mg daily, mesalamine 1.2 g QID, prednisone 60 mg daily, and adalimumab/Humira 80 mg injections q2 weeks. Imaging showed acute right-sided pyelonephritis and perianal abscess, measuring 3 x 4 cm. General surgery was consulted and stated that abscess was too small to drain. Urine cultures did not grow any bacteria, but IV antibiotics continued. GI consulted and patient underwent EGD to evaluate for possible GERD or PUD as etiology of hiccups. Underwent EGD on 07/20 that showed esophageal ulcers, esophagitis, and gastritis. Biopsies taken of lower and upper third of esophagus. Recommended protonix 40 mg PO BID and promethazine 12.5 mg PO QID. Patient can then follow-up at [facility] and Dr. Mccullough outpatient. Otherwise, no acute events throughout hospital stay. Vital signs remained stable and labs reviewed and unremarkable. He was also instructed to continue taking his medications for his Crohn's disease and to take Augmentin for 4 more days to complete antibiotic course for pyelonephritis. Diagnoses during admission: #Crohn's disease #Perianal fistula #Abdominal pain #Acute pyelonephritis #UTI #Esophageal ulcer #Microcytic anemia Discharge instructions: Take Augmentin 875 mg twice daily for 5 more days to complete antibiotic course Take azathioprine 50 mg once daily, Protonix 40 mg twice daily, promethazine 12.5 mg 4 times daily as prescribed Take prednisone 30 mg for 7 days, 25 mg for next 7 days, 20 mg for next 7 days, 15 mg for next 7 days, 10 mg for next 7 days and 5 mg for next 7 days to complete steroid taper course for Crohn's disease Take diphenoxylate?atropine as needed Follow-up with PCP as outpatient within 2 weeks Follow-up with GI specialist, as outpatient within 2 weeks In case of emergency, call 911 or come back to the ED Time Spent with Patient Time attestation: Total time spent providing and/or coordinating discharge services: Exam Vital Signs Temp Pulse Resp BP Pulse Ox O2 Del Method O2 Flow Rate 97.6 F 58 L 16 108/65 97 Room Air 2 07/21/24 11:48 07/21/24 11:48 07/21/24 11:48 07/21/24 11:48 07/21/24 11:48 07/21/24 11:48 07/20/24 18:46 Narrative Exam General: AOx3, laying comfortably in bed, able to speak full sentences HEENT: NC/AT, mucous membranes moist, bilateral sclera anicteric Cardiovascular: regular rate and rhythm, S1/S2 present, no murmurs appreciated Pulmonary: clear to auscultation bilaterally, no rales/rhonchi/wheezes Abdominal: tenderness to palpation in lower quadrants, soft, nondistended, no guarding Musculoskeletal: normal ROM, no peripheral edema Skin: warm and dry, intact, no rashes Neuro: CN II-XII intact, no focal deficits Discharge Plan Plan Patient Disposition: HOME (Self Care) Care Plan Goals: Take Augmentin 875 mg twice daily for 5 more days to complete antibiotic course Take azathioprine 50 mg once daily, Protonix 40 mg twice daily, promethazine 12 .5 mg 4 times daily as prescribed Take prednisone 30 mg for 7 days, 25 mg for next 7 days, 20 mg for next 7 days, 15 mg for next 7 days, 10 mg for next 7 days and 5 mg for next 7 days to complete steroid taper course for Crohn's disease Take diphenoxylate?atropine as needed Follow-up with PCP as outpatient within 2 weeks Follow-up with GI specialist, as outpatient within 2 weeks In case of emergency, call 911 or come back to the ED [place] Augmentin 875 mg dos veces al d?a vanessa 5 d?as m?s para completar el tratamiento con antibi?ticos [place] azatioprina 50 mg dominic vez al d?a, Protonix 40 mg dos veces al d?a, prometazina 12,5 mg 4 veces al d?a seg?n lo prescrito [place] prednisona 30 mg vanessa 7 d?as, 25 mg vanessa los siguientes 7 d?as, 20 mg vanessa los siguientes 7 d?as, 15 mg vanessa los siguientes 7 d?as, 10 mg vanessa los siguientes 7 d?as y 5 mg vanessa los siguientes 7 d?as para completar el tratamiento de reducci?n gradual de esteroides para la enfermedad de Crohn [place] difenoxilato-atropina seg?n sea necesario Seguimiento con el m?dico de atenci?n primaria joby paciente ambulatorio dentro de las 2 semanas Seguimiento con el especialista en gastroenterolog?a, joby paciente ambulatorio dentro de las 2 semanas En sunni de emergencia, llame al 911 o regrese al departamento de emergencias Prescriptions/Referrals Prescriptions/Med Rec: New pantoprazole [Protonix] 40 mg tablet,delayed release (DR/EC) 40 mg PO Q12H Qty: 60 0RF promethazine 12.5 mg tablet 12.5 mg PO QID 30 Days Qty: 120 0RF amoxicillin-pot clavulanate 875-125 mg tablet 1 tab PO Q12H 5 Days Qty: 10 0RF azathioprine 50 mg Tablet 50 mg PO QDAY 30 Days Qty: 30 0RF prednisone 5 mg tablet See Taper PO QDAY Qty: 147 0RF Taper: Prednisone Taper 30 mg DAILY for 7 Days and 0 Hour 25 mg DAILY for 7 Days and 0 Hour 20 mg DAILY for 7 Days and 0 Hour 15 mg DAILY for 7 Days 10 mg DAILY for 7 Days 5 mg DAILY for 7 Days mesalamine 500 mg capsule, extended release 1,000 mg PO BID Qty: 90 0RF Continued diphenoxylate-atropine 2.5-0.025 mg tablet See Rx Instructions .ROUTE .COMPLEX PRN (Reason: Diarrhea) Patient Comments: TAKE 1-2 TABLETS BY MOUTH EVERY 8 HOURS NEEDED DIARRHEA MAX 8 TABS/24 HRS Rx Instructions: Take 1-2 tablets by mouth every 8 hours as needed for diarrhea Discontinued ibuprofen 400 mg tablet 400 mg PO ONCE Qty: 1 0RF ibuprofen 600 mg tablet 600 mg PO ONCE Qty: 1 0RF ibuprofen 600 mg tablet 600 mg PO Q6H PRN (Reason: pain) Qty: 30 0RF SALOFALK 500 mg PO mesalamine [Pentasa] 500 mg capsule, extended release 1,000 mg PO BID ciprofloxacin HCl [Cipro] 500 mg tablet 500 mg PO BID Qty: 14 0RF Referrals: Mauro Jones MD [Primary Care Provider] - Patient/Caregiver Discharge Instructions Other Discharge Activity Instructions:: Please return to the emergency department for any worsening or persistent symptoms Please see above for all medication changes, will continue your previous dosages of prednisone, mesalamine and azathioprine for UC that your card player has prescribed Please see your primary care physician within 7 to 10 days of discharge Por favor, regrese al departamento de emergencias si los s?ntomas empeoran o persisten Por favor, consulte m?s arriba todos los cambios de medicaci?n, continuar? con las dosis anteriores de prednisona, mesalamina y azatioprina para la colitis ulcerosa que le haya recetado reyes gastroenter?logo Por favor, consulte a reyes m?dico de atenci?n primaria dentro de los 7 a 10 d?as posteriores al iva Education Materials: Low-Fiber Diet, Discharge Instructions for ..., Understanding Colitis Print Language: Portuguese Stand Alone Forms: [facility] Award Info., Patient Portal Info Letter Discharge Order Discharge Orders: Discharge (Routine); Ordered 07/21/24 Ordered By: Glynn Moreno Quality Discharge Quality Measures VTE prophylaxis MD Attestestation MD Attestation I have discussed and was present for the essential components of the discharge history, physical examination, diagnosis, and discharge treatment plan with the resident. I agree with the patient's discharge care as documented by the resident and amended herein by me. Jd Moreno, DO. The patient understood all discharge instructions, all questions were answered satisfactorily. The patient was instructed to return to the Emergency Department is symptoms worsened or persisted. Patient will be discharged with his previous regiment for Crohn's disease. Will also be discharged with a short course of Augmentin 875 every 12 hours for 5 days. Protonix every 12 hours and Reglan has also been added. Patient will need to follow-up with his card player in [place] within the next month for further workup and evaluation. Patient was stable, afebrile, tolerating p.o. intake and ambulatory at time of discharge home. Although this document has been carefully reviewed, there may still be some phonetic and other typographical errors. These errors are purely grammatical due to imperfections in the software program and should not be construed in any way to compromise the substance of the patient's medical care during this visit.
--- NOTE | 2024-07-21 23:19 | PD.IMPROG ---
Documentation for date of: 07/21/24 Subjective Subjective Interval history: Late entry for the note Case discussed with internal medicine team okay to discharge patient Exam Vital Signs Temp Pulse Resp BP Pulse Ox O2 Del Method O2 Flow Rate 97.6 F 58 L 16 108/65 97 Room Air 2 07/21/24 11:48 07/21/24 11:48 07/21/24 11:48 07/21/24 11:48 07/21/24 11:48 07/21/24 11:48 07/20/24 18:46 Objective Labs 07/21/24 05:19 07/21/24 05:19 Labs: Laboratory Results - last 24 hr 07/21/24 05:19 WBC 3.1 L RBC 4.54 Hgb 9.2 L Hct 31.4 L MCV 69 L MCH 20.3 L MCHC 29.3 L RDW Std Deviation 43.4 Plt Count 303 Neut % (Auto) 71 Lymph % (Auto) 28 [place] % (Auto) 1 Eos % (Auto) 0 Baso % (Auto) 0 Neut # (Auto) 2.2 Lymph # (Auto) 0.9 L [place] # (Auto) 0.0 Eos # (Auto) 0.0 Baso # (Auto) 0.0 Immature Gran # (Auto) 0.01 H Absolute Nucleated RBC 0.00 Immature Gran % 0 Nucleated RBC % 0 Sodium 141 Potassium 4.2 D Chloride 106 Carbon Dioxide 27.4 Anion Gap 8 BUN 7 L Creatinine 0.8 Estim Creat Clear Calc 85.0 eGFR > 60 BUN/Creatinine Ratio 9 L Glucose 139 H Calculated Osmolality 281 Calcium 8.9 Corrected Calcium 9.4 Phosphorus 5.5 H Magnesium 2.1 Total Bilirubin 0.3 AST < 8 ALT < 7 L Alkaline Phosphatase 55 Total Protein 6.0 Albumin 3.4 L Globulin 2.6 Albumin/Globulin Ratio 1.3 Impressions Impression: Esophageal ulceration okay to discharge patient home to be followed by the PCP on a PPI Assessment & Plan A&P Narrative # Persistent hiccups with nausea vomiting Patient may have a history of gastroesophageal disease with multiple ulcers distal esophagus Plan Consent obtained for fiberoptic esophagogastroduodenoscopy with possible biopsy possible therapeutic intervention under intravenous moderate sedation scheduled for tomorrow N.p.o. midnight tonight except p.o. meds # Crohn's disease with perianal fistula and perianal abscess Solu-Medrol 40 mg IV push every 12 Continue azathioprine as well as mesalamine along with Humira He can follow-up with his double bottom driver in [place] upon discharge Dr. Mccullough Recommend consultation with Dr. Head for the perianal abscess and fistula may need surgical intervention Thank you once again for the opportunity to participate in the care of this patient Time Spent With Patient Time: Total time spent is greater than 50% in coordination of care (as documented) at patient's floor/unit and/or counseling patient:
== END 2024-07-21 15:10 | disposition home or self-care (01) | DRG 245 ==
LOC: SERX 13:48 → SERHOLD 07-20 06:10 → S3NX 07-20 06:10
PROVIDERS: Nurse Practitioner Primary Care; Specialist; Student in an Organized Health Care Education/Training Program; Admitting Provider Student in an Organized Health Care Education/Training Program; Emergency Provider Emergency Medicine; PCP Student in an Organized Health Care Education/Training Program; Visit Provider Student in an Organized Health Care Education/Training Program
PROC: 0DB48ZX Excision of Esophagogastric Junction, Via Natural or Artificial Opening Endoscopic, Diagnostic (ICD-10-PCS; CPT 43239; principal; 2024-07-20 20:30)
DX: K50.913 Crohn's disease, unspecified, with fistula (principal); K61.0 Anal abscess; D50.9 Iron deficiency anemia, unspecified; E87.6 Hypokalemia; K22.10 Ulcer of esophagus without bleeding; K29.70 Gastritis, unspecified, without bleeding; Z79.624 Long term (current) use of inhibitors of nucleotide synthesis; N10 Acute pyelonephritis; R06.6 Hiccough; Z79.899 Other long term (current) drug therapy; Z88.2 Allergy status to sulfonamides
CPT/HCPCS: 36415; 74177; 80053; 81001; 82728; 83540; 83550; 83605; 83690; 83735; 84100; 85025; 87086; 96361; 96365; 96375; 96376; 99285; A4649; J1200; J2250; J2405; J2470; J2543; J2765; J2919; J3010; J7030; J7050; J7120; J7500; J7512; J7999; Q9967; A9270

== ENCOUNTER → 2024-07-24 | Outpatient (CLI) | payer MEDICAID, SELFPAY | END | disposition home or self-care (01) | LOC: SWHD 10:46 | PROVIDERS: PCP Registered Nurse Community Health; Referring Provider Registered Nurse Community Health; Visit Provider Student in an Organized Health Care Education/Training Program | DX: S31.819D Unspecified open wound of right buttock, subsequent encounter (principal); X58.XXXD Exposure to other specified factors, subsequent encounter; L98.412 Non-pressure chronic ulcer of buttock with fat layer exposed; L92.9 Granulomatous disorder of the skin and subcutaneous tissue, unspecified; D64.9 Anemia, unspecified; N63.0 Unspecified lump in unspecified breast; K50.90 Crohn's disease, unspecified, without complications | CPT/HCPCS: 99213; G0463 ==

== ENCOUNTER → 2024-07-31 | Outpatient (CLI) | payer MEDICAID, SELFPAY | END | disposition home or self-care (01) | PROVIDERS: PCP Registered Nurse Community Health; Referring Provider Registered Nurse Community Health; Visit Provider Surgery | DX: S31.819D Unspecified open wound of right buttock, subsequent encounter (principal); X58.XXXD Exposure to other specified factors, subsequent encounter; L98.412 Non-pressure chronic ulcer of buttock with fat layer exposed; L92.9 Granulomatous disorder of the skin and subcutaneous tissue, unspecified; D64.9 Anemia, unspecified; N63.0 Unspecified lump in unspecified breast; K50.90 Crohn's disease, unspecified, without complications | CPT/HCPCS: 99213; A9270; G0463 ==

== ENCOUNTER 2024-08-09 07:29 | Inpatient (IN) | payer MEDICAID, SELFPAY ==
[2024-08-09] VITALS (9 sets, daily range): BP systolic 106–136; BP diastolic 70–88; PULSE 63–89; RESP 15–18; TEMP 36.2–37.1; O2SAT 96–100; BMI 22.4; BMI 22.1
--- NOTE | 2024-08-09 08:05 | XR_ITS ---
Examination: CT abdomen with intravenous contrast CT pelvis with intravenous contrast 2-D coronal reconstructions 2-D sagittal reconstructions Date and time of exam:August 09, 2024 at 10:21 AM Comparison July 18, 2024 INDICATIONS: Onset right lower abdominal pain today, right pyelonephritis, right perianal abscess , inflammation medial to the cecum on CT abdomen pelvis study July 18, 2024 CTDI: vol (mGy) 4.89 DLP: (mGycm) 271 Technique: Multiple axial sections of the abdomen and pelvis have been obtained. 64 slice high-resolution scanner used. 3 mm axial sections have been obtained, post intravenous injection 60 cc Isovue 370 2-D sagittal, coronal reconstructions obtained. Low dose protocols were performed. One or more of the following dose reduction techniques were used; automated exposure control, adjustment of the mA and/or KV according to patient size, use of iterative reconstruction technique. Findings: No focal liver or splenic lesions No gallstones No pancreatic or adrenal mass No renal or ureteral calculi, no hydronephrosis Pericecal inflammatory change and abscess in the right pericecal region, 3.4 x 3.7 cm Wall thickening involving the descending colon and sigmoid colon, nonspecific colitis pattern Rectal wall thickening 12 x 6 mm right perianal abscess which appears to extend to the right intergluteal fold IMPRESSION: Right pericecal abscess 3.4 x 3.7 cm most consistent with localized perforation of the appendix, recommend surgical consultation Nonspecific colitis descending colon and sigmoid colon 12 x 6 mm right perianal abscess
[2024-08-09 08:40] LABS: Basophils % (Auto) 0 % (0-2.5); Eosinophils % (Auto) 0 % (0-10); Hematocrit 36.6 % (41.0-53.0); Hemoglobin 11.1 g/dL (13.5-16.0); Immature Granulocytes % (Auto) 0 % (0-0); Immature Granulocytes Auto 0.03 Thou/mm3 (0.00-0.00); Lymphocytes # (Auto) 0.9 Thou/mm3 (1.0-4.8); Lymphocytes % (Auto) 13 % (10-50); Mean Corpuscular HGB Conc 30.3 g/dl (31.0-37.0); Mean Corpuscular Hemoglobin 21.1 pg (25.0-35.0); Mean Corpuscular Volume 69 fL (80-100); Monocytes # (Auto) 0.5 Thou/mm3 (0.0-0.8); Monocytes % (Auto) 7 % (0-12); Neutrophils # (Auto) 5.8 Thou/mm3 (1.8-7.7); Neutrophils % (Auto) 79 % (37-80); Nucleated Red Blood Cell % 0 /100 WBC (0); Platelet Count 260 Thou/mm3 (140-440); RDW Standard Deviation 50.4 fL (35.1-43.9); Red Blood Count 5.27 Miln/mm3 (4.50-5.90); White Blood Count 7.3 Thou/mm3 (3.8-10.6)
--- NOTE | 2024-08-09 08:47 | PD.EDRME ---
Rapid Medical Screening Exam E Arrival date/time: 08/09/24 07:29 49-year-old male with history of anal fistula Crohn's disease and chronic abdominal pain presents to the Emergency Department today for complaints of right-sided abdominal pain Chief Complaint: Abdominal Pain Vital signs: Vital Signs Temperature 98.5 F 08/09/24 07:56 Pulse Rate 89 08/09/24 07:56 Respiratory Rate 18 08/09/24 07:56 Blood Pressure 129/84 08/09/24 07:56 Pulse Oximetry (%) 99 08/09/24 07:56 Oxygen Delivery Method Room Air 08/09/24 07:56
[2024-08-09 09:13] LABS: Alanine Aminotransferase 10 U/L (10-49); Albumin/Globulin Ratio 1.4 (1.2-2.2); Alkaline Phosphatase 83 U/L (46-116); Anion Gap 8 (7-16); Aspartate Amino Transferase 14 U/L (0-34); BUN/Creatinine Ratio 17 Ratio (12-20); Bilirubin,Total 1.2 mg/dL (0.3-1.2); Blood Urea Nitrogen 12 mg/dL (9-23); Calcium 8.9 mg/dL (8.3-10.6); Calcium (Corrected) 8.9 mg/dL (8.5-10.1); Carbon Dioxide 27.8 mMol/L (20.0-31.0); Chloride 98 mMol/L (98-107); Creatinine (Component) 0.7 mg/dL (0.6-1.3); Globulin 2.9 gm/dL (2.3-3.5); Glucose 151 mg/dL (74-106); Lipase 26 U/L (12-53); Osmolality,Calculated 270 (275-295); Potassium 3.9 mMol/L (3.4-5.1); Sodium 134 mMol/L (136-145); Total Protein 6.9 gm/dL (5.7-8.2); eGFR > 60 See Note
[2024-08-09] MEDS: ONDANSETRON INJ 2 MG/ML INJ 2 ML 4 MG IV ×2 (10:03→15:04)
[2024-08-09] MEDS: MORPHINE SULF INJ 10 MG/ML VIAL 4 MG IVP (10:04)
[2024-08-09] MEDS: SODIUM CHLORIDE 0.9% 1000 ML 1,000 ML 250 ML IV (10:05)
--- NOTE | 2024-08-09 10:17 | PD.EDABDPN ---
ED Abdominal Pain RME/HPI General Chief Complaint: Abdominal Pain Stated complaint: NAUSEA, ABD PAIN Arrival date/time: 08/09/24 07:29 RME / HPI RME / HPI narrative: 08/09/24 07:29 49-year-old male with history of anal fistula Crohn's disease and chronic abdominal pain presents to the Emergency Department today for complaints of right-sided abdominal pain DR. WATSON MAIN ED EVALUATION: 49 year old male with past medical history significant for Crohn's disease and anal fistula presents to the Emergency Department with complaints of chronic abdominal pain, mainly on the right side, right testicle pain and right groin pain. Associated symptoms include nausea and vomiting. Reviewed last admission discharge dated 07/21/24, patient admitted for the following: Acute appendicitis, Perianal fistula, Perianal abscess, Intractable hiccups, Pyelonephritis of right kidney. Related Data Home Medications ?Medication ?Instructions ?Recorded ?Confirmed diphenoxylate-atropine 2.5 See Rx Instructions .Route 01/01/24 05/25/24 mg-0.025 mg tablet .COMPLEX PRN Diarrhea Previous Rx's ?Medication ?Instructions ?Recorded azathioprine 50 mg tablet 50 mg PO QDAY 30 days #30 tabs 07/21/24 mesalamine 500 mg capsule,extended 1,000 mg (2 x 500 mg) PO BID #90 07/21/24 release caps pantoprazole 40 mg tablet,delayed 40 mg PO Q12H #60 tabs 07/21/24 release (Protonix) prednisone 5 mg tablet See Taper PO QDAY chron's disease 07/21/24 #147 tabs promethazine 12.5 mg tablet 12.5 mg PO QID 1 month #120 tabs 07/21/24 Allergies Allergy/AdvReac Type Severity Reaction Status Date / Time sulfamethizole Allergy Mild Rash Verified 08/09/24 07:37 Review of Systems Review of Systems Systems Reviewed: All systems reviewed, normal except as documented Past Medical History Past Medical History GASTROINTESTINAL: Positive Gastrointestinal Disorders, Ulcerative Colitis and Crohn's Disease Social History SMOKING STATUS: Never smoker SUBSTANCE USE: does not use ALCOHOL: Never ED Exam Narrative Physical exam: GENERAL APPEARANCE: alert and oriented x 4, well-developed, well-nourished, looks uncomfortable VITALS: All vitals were reviewed and the pulse ox is 99% on room air, which is normal according to my interpretation. HEENT: Normocephalic, atraumatic; pupils equal, round, reactive to light; EOMI; mucous membranes pink, moist; oropharynx clear NECK: Supple LUNGS: CTABL; no wheezes, no rales, no rhonchi HEART: Regular rate, regular rhythm; normal S1, S2; no murmurs ABDOMEN: normal BS; there is minimal right-sided tenderness, but guarding and no rebound; no organomegaly, no hernia BACK: no CVA tenderness EXTREMITIES: atraumatic; no edema NEUROLOGIC: awake; alert and oriented x4; cranial nerves II-XII grossly intact; no focal sensory or motor deficits PSYCHIATRIC: appropriate mood and affect SKIN: warm, dry, normal color; no rashes Course Quality Measures none Orders Category Date Time Status CT Screening NOW Care 08/09/24 08:05 Active Insert IV NOW Care 08/09/24 08:[address] abdomen pelvis w con Stat Exams 08/09/24 08:05 Completed CBC Stat Lab 08/09/24 08:10 Completed Comprehensive Metabolic Panel Stat Lab 08/09/24 08:10 Completed Lipase Stat Lab 08/09/24 08:10 Completed UA, C/S IF [Urinalysis, C/S if Indicated] Stat Lab 08/09/24 10:20 Completed Urine Culture Stat Lab 08/09/24 10:20 Received Morphine Inj Med 08/09/24 08:05 Discontinued 4 mg IVP X1 ONE Ondansetron Inj [Zofran Inj] Med 08/09/24 08:05 Discontinued 4 mg IV X1 ONE Piper/Tazo 3.375 gm Premix [Zosyn] Med 08/09/24 14:03 Discontinued 3.375 gm in 50 ml IV X1 Sodium Chloride 0.9% 1000 ml [Ns] 1,000 ml Med 08/09/24 08:05 Discontinued IV 250 mls/hr Vital Signs Vital signs: Vital Signs Temperature 98.5 F 08/09/24 07:56 Pulse Rate 89 08/09/24 07:56 Respiratory Rate 18 08/09/24 07:56 Blood Pressure 129/84 08/09/24 07:56 Pulse Oximetry (%) 99 08/09/24 07:56 Oxygen Delivery Method Room Air 08/09/24 07:56 Abdominal Pain MDM MDM Narrative MDM Narrative:: I, Iveth Alcantara, am scribing for and in the presence of Dr. Watson. Patient data External records reviewed:: [facility] previous records (Reviewed last admission discharge dated 07/21/24, patient admitted for the following: Acute appendicitis, Perianal fistula, Perianal abscess, Intractable hiccups, Pyelonephritis of right kidney) Clinical information provided by:: patient Social determinants that could affect healthcare access:: none Patient has the following chronic illnesses:: Crohn's disease and anal fistula How is presenting disease/condition affected by chronic disease/condition?: exacerbated by Evaluation data The following diagnostics were reviewed and interpreted by me:: lab results and radiology exam(s) Lab and/or radiology exams considered but not ordered:: none Interpretation Summary: Procedure(s): CT abdomen pelvis w con Accession Number(s): [id number] cc: Mauro Jones MD; Landon (KELLEE),Ricky GOODSON; Marshall Cuello MD~ Examination: CT abdomen with intravenous contrast CT pelvis with intravenous contrast 2-D coronal reconstructions 2-D sagittal reconstructions Date and time of exam:August 09, 2024 at 10:21 AM Comparison July 18, 2024 INDICATIONS: Onset right lower abdominal pain today, right pyelonephritis, right perianal abscess , inflammation medial to the cecum on CT abdomen pelvis study July 18, 2024 CTDI: vol (mGy) 4.89 DLP: (mGycm) 271 Technique: Multiple axial sections of the abdomen and pelvis have been obtained. 64 slice high-resolution scanner used. 3 mm axial sections have been obtained, post intravenous injection 60 cc Isovue 370 2-D sagittal, coronal reconstructions obtained. Low dose protocols were performed. One or more of the following dose reduction techniques were used; automated exposure control, adjustment of the mA and/or KV according to patient size, use of iterative reconstruction technique. Findings: No focal liver or splenic lesions No gallstones No pancreatic or adrenal mass No renal or ureteral calculi, no hydronephrosis Pericecal inflammatory change and abscess in the right pericecal region, 3.4 x 3.7 cm Wall thickening involving the descending colon and sigmoid colon, nonspecific colitis pattern Rectal wall thickening 12 x 6 mm right perianal abscess which appears to extend to the right intergluteal fold IMPRESSION: Right pericecal abscess 3.4 x 3.7 cm most consistent with localized perforation of the appendix, recommend surgical consultation Nonspecific colitis descending colon and sigmoid colon 12 x 6 mm right perianal abscess Dictated By: Marshall Cuello MD Medications / Prescriptions Medications or Prescriptions considered but not ordered:: none Medication administrations:: Medication Administration History Discontinued Medications Sodium Chloride (Ns) 1,000 mls @ 250 mls/hr IV .Q4H ONE Stop: 08/09/24 12:04 Last Admin: 08/09/24 10:05 Dose: 250 mls/hr Documented By: ALONDRA Piperacillin/Tazobactam/Dextrose (Zosyn) 3.375 gm in 50 mls @ 100 mls/hr IV X1 ONE Stop: 08/09/24 14:32 Morphine Sulfate (Morphine Sulf Inj 10 Mg/Ml Vial) 4 mg IVP X1 ONE Stop: 08/09/24 08:06 Last Admin: 08/09/24 10:04 Dose: 4 mg Documented By: ALONDRA Ondansetron HCl (Ondansetron Inj 2 Mg/Ml Inj 2 Ml) 4 mg IV X1 ONE; Protocol Stop: 08/09/24 08:06 Last Admin: 08/09/24 10:03 Dose: 4 mg Documented By: ALONDRA see above Consultations Consultation(s) initiated? (list below): Yes Consultation #1 (Physician, Specialty, Details): Discussed test HPI, PMHx, lab, radiology results and/or management with Dr. Douglass. Will consult an admission to the hospitalist. Time: 13:50 Consultation #2 (Physician, Specialty, Details): Discussed test HPI, PMHx, lab, radiology results and/or management with hospitalist. Will admit for further evaluation and management. Accepts patient for admission. Time: 14:05 Diagnosis Differential diagnosis abdominal pain: abdominal pain and other (Crohn's disease, sepsis) Most likely diagnosis given after review of the tests above:: Right pericecal abscess Admission Indicated Admission indicated?: indicated Admission Request Was there a request for admission?: Yes Admission Attestation Admission request attestation: Discussed case with [] from Hospitalist service regarding admission. Discussed patients ED course, exam findings, labs, and radiology results. The Hospitalist [agrees,declines] to accept the patient for admission. Disposition Plan Disposition Plan: Admit Discharge Plan Plan Patient Disposition: Admit Acute Care w/in Hospital Prescriptions/Referrals Prescriptions/Med Rec: No Action diphenoxylate-atropine 2.5-0.025 mg tablet See Rx Instructions .ROUTE .COMPLEX PRN (Reason: Diarrhea) Patient Comments: TAKE 1-2 TABLETS BY MOUTH EVERY 8 HOURS NEEDED DIARRHEA MAX 8 TABS/24 HRS Rx Instructions: Take 1-2 tablets by mouth every 8 hours as needed for diarrhea pantoprazole [Protonix] 40 mg tablet,delayed release (DR/EC) 40 mg PO Q12H Qty: 60 0RF promethazine 12.5 mg tablet 12.5 mg PO QID 30 Days Qty: 120 0RF azathioprine 50 mg Tablet 50 mg PO QDAY 30 Days Qty: 30 0RF prednisone 5 mg tablet See Taper PO QDAY Qty: 147 0RF Taper: Prednisone Taper 30 mg DAILY for 7 Days and 0 Hour 25 mg DAILY for 7 Days and 0 Hour 20 mg DAILY for 7 Days and 0 Hour 15 mg DAILY for 7 Days 10 mg DAILY for 7 Days 5 mg DAILY for 7 Days mesalamine 500 mg capsule, extended release 1,000 mg PO BID Qty: 90 0RF Referrals: Mauro Jones MD [Primary Care Provider] - In 1 week Problem List Clinical Impression: Pericecal abscess Patient/Caregiver Discharge Instructions Print Language: Setswana Stand Alone Forms: [facility] Award Info., Patient Portal Info Letter
--- NOTE | 2024-08-09 10:20 | PC.NURSE ---
Patient presented to ED with c/o abdominal pain from mid umbilius to right lower quadrant. Pt is currently nauseated and c/o pain on scale of 8/10 described as pulsating and tight. He has history had some unintentional weight loss due to poor appetite and nausea. No fevers at this time.
[2024-08-09 10:29] LABS: Collection Type, Urine Clean Catch
[2024-08-09 10:40] LABS: Bilirubin,Urine Negative (Negative); Blood,Urine Negative (Negative); Clarity,Urine Turbid (Clear/Hazy); Color,Urine Yellow (Lt Yel-Yel); Glucose, Urine Negative (Negative); Ketones,Urine Negative (Negative); Leukocyte Esterase,Urine Positive (Negative); Nitrite,Urine Negative (Negative); Protein,Urine 1+ (Neg - Trace); RBC,Urine 5 /hpf (0-3); Specific Gravity,Urine 1.028 (1.001-1.035); Squamous Epithelial Cell,Urine 1 /hpf (0-5); Transitional Epi Cells,Urine 1 /hpf (0-5); Urobilinogen,Urine Negative mg/dL (0.0-1.0); WBC,Urine 29 /hpf (0-5)
[2024-08-09 10:43] LABS: Culture Indicated,Urine Yes
--- NOTE | 2024-08-09 13:59 | ESCONSULT_ITS ---
HPI Consult details Consult date: 08/09/24 Reason for consultation narrative: The patient was seen on consultation for a possible appendiceal abscess History of present illness: History of present illness revealed that the patient has documented Crohn's disease and has been on medications for that. He has had multiple visits to the emergency room and has been evaluated by [employer] and the surgeon. At the present time he had pain for 3 days. No history of fever chills or vomiting Meds Home Medications and Allergies Home Medications ?Medication ?Instructions ?Recorded ?Confirmed ?Type diphenoxylate-atropine 2.5 See Rx Instructions .Route 01/01/24 05/25/24 History mg-0.025 mg tablet .COMPLEX PRN Diarrhea Allergies Allergy/AdvReac Type Severity Reaction Status Date / Time sulfamethizole Allergy Mild Rash Verified 08/09/24 07:37 Exam Vital Signs Temp Pulse Resp BP Pulse Ox O2 Del Method 98.4 F 78 16 127/79 97 Room Air 08/09/24 12:38 08/09/24 12:38 08/09/24 12:38 08/09/24 12:38 08/09/24 12:38 08/09/24 12:00 Narrative Exam Vital signs are normal Results Results: Laboratory Laboratory Narrative: Laboratory results are negative Results: Imaging Imaging narrative: CT scan showed possible appendiceal abscess medial to the cecum Assessment & Plan Additional Assessment Additional comments: Pression: Abscess medial to the cecum possibly appendiceal or related to the chronic Crohn's disease Plan Plan: Patient is not a candidate for surgery and he will be treated with antibiotics and ask interventional radiologist to drain this abscess percutaneously. Thank you very much
--- NOTE | 2024-08-09 14:28 | PC.CC ---
Patient is a 49 year-old male who presents to the hospital for nausea and abdominal pain. Colleen MAGAÑA made [id number] contact with patient. ASW introduced self, role, and reason for visit. Patient appeared alert and oriented to self, location, and situation. Patient was pleasant and engaged in initial assessment. Patient confirmed information on his demographics and reports to living at home with his children. Patient reports that in the event he is unable to make his own medical decisions his medical decision maker would be his daughter, Kourtney Mary . Per patient, he was recently released from the hospital and is experiencing generalized weakness. Patient reports at home he does not use any DME to ambulate. Patient completes his own ADLs with difficulty. Patient receives primary care with Mauro Jones and uses [facility]. Upon discharge the patient plans to return home. social services director to follow up with any discharge needs.
--- NOTE | 2024-08-09 14:41 | PD.RESHP ---
Documentation for date of: 08/09/24 HPI History of Present Illness Chief complaint: Abdominal pain History of present illness: 48 year-old male with history of Crohn's disease (diagnosed November 2023) presented to the ED on 08/09 with recurrent abdominal pain, nausea and loss of appetite. Patient states that he was recently discharged from the hospital on 07/21 for acute right-sided pyelonephritis and perianal abscess which general surgery was consulted for but did not drain as it was too small. Patient was discharged with oral antibiotics and medications for Crohn disease along with a prednisone taper. Patient states that a week after being discharged she felt very good but that a week afterwards she started to develop increasing abdominal pain which started in the middle of his abdomen and radiated to the left. Patient also states that he has felt nauseous with some loss of appetite and has had episodes of feeling cold and night sweats. Patient states that he takes mesalamine but that taking it causes him to be more constipated than usual. Patient has history of chronic fistula which was noted on last admission without any intervention. Per patient, sometimes when he urinates he notices that some fecal matter if. Patient denies any other concerning symptoms such as chest pain/tightness, shortness of breath, dizziness, loss of consciousness, headaches, melena, hematochezia, hematuria. Past medical history: Crohn's disease Past surgical history: no surgical history Allergies: Sulfamethizole causes a rash Home Meds: azathioprine 50 mg daily, mesalamine 1.2 g QID, prednisone 60 mg daily, and adalimumab/Humira 80 mg injections q2 weeks. Family history: Noncontributory Social history: Patient denies smoking or drug use, occasionally drinks alcohol ROS: All 12 systems assessed and the patient denies unless otherwise stated in HPI In the ED, patient presented normotensive, regular heart rate, normal respiratory rate, afebrile satting 99 on room air. Pertinent lab findings included WBC of 7.3, hemoglobin 11.1 with MCV of 69, platelets of 260, sodium 134, EGFR greater than 60 with creatinine 0.7 and BUN of 12, urinalysis shows no bacteria but there is some pyuria, hematuria and positive for leukocyte esterase. CT abdomen pelvis does show a right pericecal abscess measuring 3.4 x 3.7 cm, nonspecific colitis in the descending colon and sigmoid colon and a 12 x 6 mm right perianal abscess. Dr. Douglass, general surgery, was able to see the patient in the emergency room and states that the patient does not need surgical interventions but IR can possibly drain the pericecal abscess; moreover, will require IV antibiotics. Patient will be admitted for IV antibiotics for the pericecal abscess along with possible IR guided drainage, gastroenterology will be consulted for Crohn's disease management and general surgery will follow for recommendations. Exam Vital Signs Temp Pulse Resp BP Pulse Ox O2 Del Method 98.6 F 73 18 136/86 H 100 Room Air 08/09/24 14:29 08/09/24 14:29 08/09/24 14:29 08/09/24 14:29 08/09/24 14:08/09/24 12:00 Narrative Exam Physical Exam: GENERAL: Awake, answering questions appropriately in Vincent[place], appears stated age, thin appearing HEENT: NC/AT. Moist mucosa. PERRLA/EOMI. CARDIO: Heart RRR, no obvious murmurs, no JVD. PULM: No coughing or visible SOB. Lungs CTA B/L. GI: Abdomen soft, tender to palpation especially on the right upper and lower quadrants versus the left upper and lower quadrants, guarding noted with palpation, no rebound tenderness, borborygmi apparent SKIN/MSK/EXT: No wounds/discoloration/rashes/edema/amputations noted. +Pedal pulses present B/L. NEURO: Oriented x3, Moves extremities x4, no focal neurologic deficits noted Results: Labs 08/09/24 08:10 08/09/24 08:10 Labs: Short CBC 08/09/24 Range/Units 08:10 WBC 7.3 (3.8-10.6) Thou/mm3 Hgb 11.1 L (13.5-16.0) g/dL Hct 36.6 L (41.0-53.0) % Plt Count 260 D (140-440) Thou/mm3 BMP 08/09/24 08:10 Sodium 134 L Potassium 3.9 Chloride 98 Carbon Dioxide 27.8 BUN 12 Creatinine 0.7 Glucose 151 H Calcium 8.9 Liver Function 08/09/24 Range/Units 08:10 Total Bilirubin 1.2 (0.3-1.2) mg/dL AST 14 (0-34) U/L ALT 10 (10-49) U/L Alkaline Phosphatase 83 (46-116) U/L Albumin 4.0 (3.5-5.0) gm/dL Urine 08/09/24 Range/Units 10:20 Urine Color Yellow (Lt Yel-Yel) Urine Clarity Turbid A (Clear/Hazy) Urine pH 6.0 (5.0-7.0) Ur Specific [place] 1.028 (1.001-1.035) Urine Protein 1+ A (Neg - Trace) Urine Glucose (UA) Negative (Negative) Quality Measures Quality Measures none Medications Home Medications and Allergies Home Medications ?Medication ?Instructions ?Recorded ?Confirmed ?Type diphenoxylate-atropine 2.5 See Rx Instructions .Route 01/01/24 05/25/24 History mg-0.025 mg tablet .COMPLEX PRN Diarrhea Allergies Allergy/AdvReac Type Severity Reaction Status Date / Time sulfamethizole Allergy Mild Rash Verified 08/09/24 07:37 Visit Medications Acetaminophen (Acetaminophen 325 Mg Tablet) 650 mg PO Q6H PRN PRN Reason: Pain 1-3 and/or Fever >100.1 Stop: 09/08/24 14:34 Heparin Sodium (Porcine) (Heparin Sod Inj 5000 Unit/Ml Vial) 5,000 unit SC Q12HR SEB Stop: 08/23/24 20:59 Piperacillin/Tazobactam/Dextrose (Zosyn) 50 mls @ 100 mls/hr IV Q8HR SEB Stop: 08/16/24 14:40 Morphine Sulfate (Morphine Sulf Inj 10 Mg/Ml Vial) 1 mg IVP Q4H PRN PRN Reason: PAIN SCALE 7-10 (Severe Stop: 08/14/24 14:34 Ondansetron HCl (Ondansetron Inj 2 Mg/Ml Inj 2 Ml) 4 mg IV Q6H PRN; Protocol PRN Reason: NAUSEA OR VOMITING Stop: 09/08/24 14:34 Oxycodone/Acetaminophen (Oxycodone/Apap 5/325 Tablet) 1 tab PO Q6H PRN PRN Reason: PAIN SCALE 4-6 (Moderate Stop: 08/14/24 14:34 Discontinued Medications Sodium Chloride (Ns) 1,000 mls @ 250 mls/hr IV .Q4H ONE Stop: 08/09/24 12:04 Last Admin: 08/09/24 10:05 Dose: 250 mls/hr Piperacillin/Tazobactam/Dextrose (Zosyn) 3.375 gm in 50 mls @ 100 mls/hr IV X1 ONE Stop: 08/09/24 14:32 Morphine Sulfate (Morphine Sulf Inj 10 Mg/Ml Vial) 4 mg IVP X1 ONE Stop: 08/09/24 08:06 Last Admin: 08/09/24 10:04 Dose: 4 mg Ondansetron HCl (Ondansetron Inj 2 Mg/Ml Inj 2 Ml) 4 mg IV X1 ONE; Protocol Stop: 08/09/24 08:06 Last Admin: 08/09/24 10:03 Dose: 4 mg Assessment & Plan Plan 48 year-old male with history of Crohn's disease (diagnosed November 2023) presented to the ED with recurrent abdominal pain, nausea and loss of appetite will be admitted for IV antibiotics for the pericecal abscess along with possible IR guided drainage, gastroenterology will be consulted for Crohn's disease management and general surgery will follow for recommendations. #Right pericecal abscess #Crohn's disease Patient presenting with abdominal pain which has been progressively worsening since the past week Patient follows Dr. Mccullough in [place] and is on azathioprine 50 mg daily, mesalamine 1.2 g 4 times daily, prednisone 60 mg daily, adalimumab/Humira 80 mg injections every 2 weeks Recently discharged on 07/21 with pyelonephritis and perianal abscess with oral antibiotics; initially improved but has since worsened in the past week On examination, patient has tenderness to palpation in the right upper and lower quadrant versus the left quadrants with associated guarding CT abdomen pelvis findings show right pericecal abscess measuring 3.4 x 3.7 cm, nonspecific colitis in the descending colon and sigmoid colon and a 12 x 6 mm right perianal abscess General Surgery saw the patient in the ED and recommends no surgical intervention but IV antibiotics and possible IR guided drainage Plan: Broad-spectrum coverage with IV Zosyn every 8 hours IR guided abscess drainage ordered Gastroenterology consulted, appreciate recommendations General Surgery consulted, appreciate recommendations Multimodal pain management #Chronic perianal abscess #Chronic fistula Per notation, patient has had chronic fistula with perianal abscess formation General surgery followed the patient on last admission and recommended no surgical intervention at that time On history taking, patient does state that he does notice some fecal matter when he urinates Plan: General surgery consulted, appreciate recommendations Urinalysis shows no bacteria but there is some pyuria, hematuria and positive for leukocyte esterase #Microcytic anemia #Likely anemia of chronic disease along with anemia of chronic disease Peripheral smear ordered on 07/18 showed moderate microcytic anemia with variable hypochromasia and without hemolysis favoring iron deficiency state Presenting today with hemoglobin of 11.1 and an MCV of 69 Iron panel from 07/19 shows an iron of 6, TIBC of 161, iron saturation 3%, unsaturated iron binding of 155 and ferritin elevated at 344 Plan: Iron supplementation Outpatient follow-up for hematology referral Hospital Management: Lines: PIV Diet: Cardiac Bowel: Not needed GI prophylaxis: Not needed DVT prophylaxis: Subcu heparin Dispo: IV antibiotics for right pericecal abscess, IR guided drainage, gastroenterology and general surgery recommendations Code: Full Patient seen and examined with attending Dr. Ornelas and senior resident Dr. Dunia Jimenez, PGY-1 Attending Provider Attestation/Addendum I attest that I was physically present for the evaluation, physical examination, lab and imaging review of the patient with the residents. I discussed the case with the residents and agree with the findings and plans of care as documented above. Patient is a 48 years old male with past medical history of Crohn's disease who presented with complaint of abdominal pain, nausea and loss of appetite. Patient was recently discharged on 07/21/2024 after being managed for Crohn's disease flare, right-sided pyelonephritis and perineal abscess. Patient was receiving mesalamine, azathioprine, prednisone taper and Humira. His symptoms improved initially after discharge but after a week she started having abdominal pain which again relieved and reappeared this week. Denies any fever, melena hematochezia. Patient does complain of chills, decreased appetite, possible fecal matter from his urine. In the ED, CT abdomen/pelvis was done, which shows right pericecal abscess measuring 3.4 x 3.7 cm and a 12 x 6 mm right perianal abscess. General surgery was contacted by ED, who recommended IV antibiotics and IR guided drainage. We will admit the patient for management of abscesses in setting of Crohn's disease. We will start him on broad-spectrum antibiotic with IV Zosyn. We will obtain IR abscess drainage. We will consult GI for recommendations regarding medications for Crohn's disease. General surgery following. Luis Ornelas MD
[2024-08-09] MEDS: PIPER/TAZO 3.375 GM PREMIX 3.375 GM/50 ML BAG IV ×2 (15:04→21:42)
[2024-08-09] MEDS: MORPHINE SULF INJ 10 MG/ML VIAL IVP ×2 (15:04→19:21)
[2024-08-09] MEDS: oxyCODONE/APAP 5/325 TABLET 1 TAB PO ×2 (16:19→22:28)
--- NOTE | 2024-08-09 16:51 | PC.NURSE ---
Patient to Med surg unit from ED via wheelchair.
--- NOTE | 2024-08-09 16:51 | PC.NURSE ---
Handoff report given to Nakita BEYER. Pt aware of transfer to [facility]. Pt continues to c/o pain to abdomen. All belongings gathered and sent with patient
--- NOTE | 2024-08-09 17:03 | PD.IMCONS ---
HPI Data of Consult Requesting Physician: Luis Ornelas MD Primary Care Provider: Mauro Jones MD Consult Narrative Reason for consult: Pericecal and perianal abscess History of present illness: 49 years old male came to the emergency room with nausea abdominal pain and not feeling well CT scan imaging of the abdomen pelvis with contrast showed 3.4 x 3.7 cm pericecal abscess as well as a 12 x 6 mm perianal abscess which is old the pericecal abscess is new Patient under care of a winding inspector and tester in [place] and has been on azathioprine 50-minute once a day mesalamine 1.2 g 4 times daily as well as Humira 80 mg subcu every 2 weeks Patient was in the hospital 2 weeks ago with right-sided pyelonephritis and had nausea and hiccups underwent upper endoscopy on 07/20/2024 which showed esophageal ulcers and gastritis cc:: cc: Luis Ornleas MD Review of Systems Review of Systems Systems Reviewed: All systems reviewed, normal except as documented Past Medical History Surgical History OTHER SURGICAL HX: As in the history of present illness Meds Home Medications and Allergies Home Medications ?Medication ?Instructions ?Recorded ?Confirmed ?Type diphenoxylate-atropine 2.5 See Rx Instructions .Route 01/01/24 05/25/24 History mg-0.025 mg tablet .COMPLEX PRN Diarrhea Allergies Allergy/AdvReac Type Severity Reaction Status Date / Time sulfamethizole Allergy Mild Rash Verified 08/09/24 07:37 Exam Vital Signs Temp Pulse Resp BP Pulse Ox O2 Del Method 98.1 F 73 15 118/81 99 Room Air 08/09/24 16:00 08/09/24 16:00 08/09/24 16:00 08/09/24 16:00 08/09/24 16:00 08/09/24 16:00 Constitutional Comments: Alert oriented Routine Respiratory Exam Comments: Normal to auscultation Routine Abdominal Exam Comments: Soft tender positive bowel sounds Results Labs 08/09/24 08:10 08/09/24 08:10 Labs: Short CBC 08/09/24 Range/Units 08:10 WBC 7.3 (3.8-10.6) Thou/mm3 Hgb 11.1 L (13.5-16.0) g/dL Hct 36.6 L (41.0-53.0) % Plt Count 260 D (140-440) Thou/mm3 BMP 08/09/24 08:10 Sodium 134 L Potassium 3.9 Chloride 98 Carbon Dioxide 27.8 BUN 12 Creatinine 0.7 Glucose 151 H Calcium 8.9 Liver Function 08/09/24 Range/Units 08:10 Total Bilirubin 1.2 (0.3-1.2) mg/dL AST 14 (0-34) U/L ALT 10 (10-49) U/L Alkaline Phosphatase 83 (46-116) U/L Albumin 4.0 (3.5-5.0) gm/dL Urine 08/09/24 Range/Units 10:20 Urine Color Yellow (Lt Yel-Yel) Urine Clarity Turbid A (Clear/Hazy) Urine pH 6.0 (5.0-7.0) Ur Specific [place] 1.028 (1.001-1.035) Urine Protein 1+ A (Neg - Trace) Urine Glucose (UA) Negative (Negative) Assessment and Plan Additional Assessment & Plan Additional Plan: Pericecal abscess could be due to the underlying inflammatory bowel disease or possible leakage from the appendix Perianal abscess in the setting of inflammatory bowel disease Crohn's disease with fistula Plan Will start the patient on IV Solu-Medrol 40 mg IV push every 12 Consult IR for possible catheter drainage of the right pericecal abscess CRP Prognosis is guarded No need for any colonoscopy at this point or any other invasive GI workup Thank you once again for the opportunity to participate in care of this patient
[2024-08-09] MEDS: HEPARIN SOD INJ 5000 UNIT/ML VIAL SC (21:42)
[2024-08-10] VITALS (7 sets, daily range): BP systolic 112–136; BP diastolic 72–86; PULSE 59–80; RESP 16–18; TEMP 36.1–37.6; O2SAT 90–99
[2024-08-10] MEDS: oxyCODONE/APAP 5/325 TABLET 1 TAB PO ×3 (05:11→22:04)
[2024-08-10] MEDS: PIPER/TAZO 3.375 GM PREMIX 3.375 GM/50 ML BAG IV ×3 (05:11→21:33)
[2024-08-10 05:37] LABS: Basophils % (Auto) 0 % (0-2.5); Eosinophils # (Auto) 0.1 Thou/mm3 (0.0-0.5); Eosinophils % (Auto) 1 % (0-10); Hematocrit 31.3 % (41.0-53.0); Hemoglobin 9.6 g/dL (13.5-16.0); Immature Granulocytes % (Auto) 0 % (0-0); Immature Granulocytes Auto 0.02 Thou/mm3 (0.00-0.00); Lymphocytes # (Auto) 1.2 Thou/mm3 (1.0-4.8); Lymphocytes % (Auto) 20 % (10-50); Mean Corpuscular HGB Conc 30.7 g/dl (31.0-37.0); Mean Corpuscular Hemoglobin 21.1 pg (25.0-35.0); Mean Corpuscular Volume 69 fL (80-100); Monocytes # (Auto) 0.5 Thou/mm3 (0.0-0.8); Monocytes % (Auto) 8 % (0-12); Neutrophils # (Auto) 4.5 Thou/mm3 (1.8-7.7); Neutrophils % (Auto) 71 % (37-80); Nucleated Red Blood Cell % 0 /100 WBC (0); Platelet Count 267 Thou/mm3 (140-440); RDW Standard Deviation 49.4 fL (35.1-43.9); Red Blood Count 4.55 Miln/mm3 (4.50-5.90); White Blood Count 6.4 Thou/mm3 (3.8-10.6)
[2024-08-10 06:25] LABS: Alanine Aminotransferase 7 U/L (10-49); Albumin, Serum 3.3 gm/dL (3.5-5.0); Albumin/Globulin Ratio 1.3 (1.2-2.2); Alkaline Phosphatase 72 U/L (46-116); Anion Gap 7 (7-16); Aspartate Amino Transferase < 10 U/L (0-34); BUN/Creatinine Ratio 13 Ratio (12-20); Bilirubin,Total 1.3 mg/dL (0.3-1.2); Blood Urea Nitrogen 9 mg/dL (9-23); C-Reactive Protein 20.2 mg/dL (0.0-0.9); Calcium 8.4 mg/dL (8.3-10.6); Carbon Dioxide 28.8 mMol/L (20.0-31.0); Chloride 100 mMol/L (98-107); Creatinine (Component) 0.7 mg/dL (0.6-1.3); Estimated Creatinine Clearance 104.6 mL/min (>60); Globulin 2.6 gm/dL (2.3-3.5); Glucose 104 mg/dL (74-106); Osmolality,Calculated 270 (275-295); Potassium 3.9 mMol/L (3.4-5.1); Sodium 136 mMol/L (136-145); Total Protein 5.9 gm/dL (5.7-8.2); eGFR > 60 See Note
[2024-08-10] MEDS: MethylPREDNISolone SOD SUCC 62.5 MG/ML 2ML VIAL 40 MG IVP ×2 (08:27→21:29)
--- NOTE | 2024-08-10 12:03 | PC.SS ---
Follow up note: Pt is on IV steroids. Requiring drain abscess. Pt is on IV antibiotic. Pt will return home upon dc.
--- NOTE | 2024-08-10 13:35 | PD.RESPRO ---
Documentation for date of: 08/10/24 Subjective Subjective Interval history: 08/10/2024: No acute overnight events to report. Patient seen and examined in the morning reporting no concerning symptoms such as chest pain/tightness, shortness of breath, dizziness or new headaches. Patient reports persistent abdominal pain secondary to the abscess location. IR consulted and they agreed to attempt percutaneous drainage of the abscess. Will culture the abscess and continue IV antibiotics. Expecting discharge within the next 24 to 48 hours. Exam Vital Signs Temp Pulse Resp BP Pulse Ox O2 Del Method O2 Flow Rate 99.6 F 80 18 136/75 H 90 L Nasal Cannula 3 08/10/24 12:00 08/10/24 12:00 08/10/24 12:00 08/10/24 12:00 08/10/24 12:00 08/10/24 12:08/10/24 12:00 Narrative Exam Physical Exam: GENERAL: Awake, answering questions appropriately in [place], appears stated age, thin appearing HEENT: NC/AT. Moist mucosa. PERRLA/EOMI. CARDIO: Heart RRR, no obvious murmurs, no JVD. PULM: No coughing or visible SOB. Lungs CTA B/L. GI: Abdomen soft, tender to palpation especially on the right upper and lower quadrants versus the left upper and lower quadrants, guarding noted with palpation, no rebound tenderness, borborygmi apparent SKIN/MSK/EXT: No wounds/discoloration/rashes/edema/amputations noted. +Pedal pulses present B/L. NEURO: Oriented x3, Moves extremities x4, no focal neurologic deficits noted Objective Labs 08/11/24 05:30 08/11/24 05:30 Labs: Laboratory Results - last 24 hr 08/10/24 04:41 WBC 6.4 RBC 4.55 Hgb 9.6 L Hct 31.3 L MCV 69 L MCH 21.1 L MCHC 30.7 L RDW Std Deviation 49.4 H Plt Count 267 Neut % (Auto) 71 Lymph % (Auto) 20 Williams % (Auto) 8 Eos % (Auto) 1 Baso % (Auto) 0 Neut # (Auto) 4.5 Lymph # (Auto) 1.2 Williams # (Auto) 0.5 Eos # (Auto) 0.1 Baso # (Auto) 0.0 Immature Gran # (Auto) 0.02 H Absolute Nucleated RBC 0.00 Immature Gran % 0 Nucleated RBC % 0 Sodium 136 Potassium 3.9 Chloride 100 Carbon Dioxide 28.8 Anion Gap 7 BUN 9 Creatinine 0.7 Estim Creat Clear Calc 104.6 eGFR > 60 BUN/Creatinine Ratio 13 Glucose 104 Calculated Osmolality 270 L Calcium 8.4 Corrected Calcium 9.0 Total Bilirubin 1.3 H AST < 10 ALT 7 L Alkaline Phosphatase 72 C-Reactive Prot, Quant 20.2 H Total Protein 5.9 Albumin 3.3 L D Globulin 2.6 Albumin/Globulin Ratio 1.3 Quality Measures Quality Measures none Assessment & Plan Assessment Current Active Medications: Generic Name Dose Route Start Last Admin Trade Name Freq PRN Reason Stop Dose Admin Acetaminophen 650 mg 08/09/24 14:35 Acetaminophen 325 Mg Tablet PO 09/08/24 14:34 Q6H PRN Pain 1-3 and/or Fever >100.1 Heparin Sodium (Porcine) 5,000 unit 08/09/24 21:00 08/10/24 08:15 Heparin Sod Inj 5000 Unit/Ml Vial SC 08/23/24 20:59 Not Given Q12HR SEB Piperacillin/Tazobactam/Dextrose 3.375 gm in 50 mls @ 12.5 mls/hr 08/09/24 22:00 08/10/24 05:11 Zosyn IV 08/16/24 21:59 12.5 mls/hr Q8HR SEB Administration Methylprednisolone Sodium Succinate 40 mg 08/10/24 09:00 08/10/24 08:27 Methylprednisolone Sod Succ 62.5 Mg/Ml 2ml Vial IVP 08/17/24 08:59 40 mg BID SEB Administration Morphine Sulfate 1 mg 08/09/24 14:35 08/09/24 19:21 Morphine Sulf Inj 10 Mg/Ml Vial IVP 08/14/24 14:34 1 mg Q4H PRN Administration PAIN SCALE 7-10 (Severe Ondansetron HCl 4 mg 08/09/24 14:35 08/09/24 15:04 Ondansetron Inj 2 Mg/Ml Inj 2 Ml IV 09/08/24 14:34 4 mg Q6H PRN Administration NAUSEA OR VOMITING Protocol Oxycodone/Acetaminophen 1 tab 08/09/24 14:35 08/10/24 05:11 Oxycodone/Apap 5/325 Tablet PO 04/04/25 14:34 1 tab Q6H PRN Administration PAIN SCALE 4-6 (Moderate Plan 48 year-old male with history of Crohn's disease (diagnosed November 2023) presented to the ED with recurrent abdominal pain, nausea and loss of appetite will be admitted for IV antibiotics for the pericecal abscess along with possible IR guided drainage, gastroenterology will be consulted for Crohn's disease management and general surgery will follow for recommendations. #Right pericecal abscess #Crohn's disease Patient presenting with abdominal pain which has been progressively worsening since the past week Patient follows Dr. Mccullough in [place] and is on azathioprine 50 mg daily, mesalamine 1.2 g 4 times daily, prednisone 60 mg daily, adalimumab/Humira 80 mg injections every 2 weeks Recently discharged on 07/21 with pyelonephritis and perianal abscess with oral antibiotics; initially improved but has since worsened in the past week On examination, patient has tenderness to palpation in the right upper and lower quadrant versus the left quadrants with associated guarding CT abdomen pelvis findings show right pericecal abscess measuring 3.4 x 3.7 cm, nonspecific colitis in the descending colon and sigmoid colon and a 12 x 6 mm right perianal abscess General Surgery consulted, appreciate recommendations General Surgery saw the patient in the ED and recommends no surgical intervention but IV antibiotics and possible IR guided drainage Gastroenterology consulted, appreciate recommendations Plan: Broad-spectrum coverage with IV Zosyn every 8 hours IR guided abscess drainage to be completed 08/10 Culture abscess Multimodal pain management 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 Per notation, patient has had chronic fistula with perianal abscess formation General surgery followed the patient on last admission and recommended no surgical intervention at that time On history taking, patient does state that he does notice some fecal matter when he urinates Plan: Gastroenterology started the patient on IV Solu-Medrol 40 mg daily General surgery consulted, appreciate recommendations Urinalysis shows no bacteria but there is some pyuria, hematuria and positive for leukocyte esterase #Microcytic anemia #Likely anemia of chronic disease along with anemia of chronic disease Peripheral smear ordered on 07/18 showed moderate microcytic anemia with variable hypochromasia and without hemolysis favoring iron deficiency state Presenting today with hemoglobin of 11.1 and an MCV of 69 Iron panel from 07/19 shows an iron of 6, TIBC of 161, iron saturation 3%, unsaturated iron binding of 155 and ferritin elevated at 344 Plan: Iron supplementation Outpatient follow-up for hematology referral Hospital Management: Lines: PIV Diet: Cardiac Bowel: Not needed GI prophylaxis: Not needed DVT prophylaxis: Subcu heparin Dispo: IV antibiotics for right pericecal abscess, IR guided drainage, gastroenterology and general surgery recommendations Code: Full Patient seen and examined with attending Dr. Jones and senior resident Dr. Dunia Jimenez, PGY-1 -- ATTESTATION: I saw and examined the patient this morning, and I agree with current management stated by the resident. Will continue to monitor patient during their stay. Disclaimer: Despite multiple revisions, due to the dictation software being used, the document bellow may not be free of grammatical errors including phonetic/typographic errors. However, this does not deter from our commitment to providing health care in the patient's best interest in mind. Dr. Noam Duque, PGY-3 Attending Provider Attestation/Addendum I have examined the patient, reviewed labs and imaging findings, discussed the case with the resident(s), and reviewed entered orders. I agree with the plan of care as outlined in this note, with these additional summaries/recommendations: Currently pending IR drainage of pericecal abscess. Pain appears improved today and patient is afebrile at this time. Keep patient n.p.o. at this time pending drainage. await final cultures for speciation and tailoring of antibiotic regimen. Anticipate discharge next 48 hours. Mauro Jones MD
--- NOTE | 2024-08-10 15:13 | PC.SS ---
Follow up note: Pt is on IV steroids, drain abscess, on IV antibiotic. Pt will return home upon dc.
--- NOTE | 2024-08-10 19:45 | PC.NURSE ---
IR for drain pericecal abcess will not be done till tomorrow. Pt requesting if he can have food and be NPO at midnight. Dr. Moyer said she will put a diet and the patient will be NPO at midnight.
--- NOTE | 2024-08-10 21:30 | PD.IMPROG ---
Documentation for date of: 08/10/24 Subjective Subjective Interval history: Percutaneous drainage of the cecal abscess pending by IR Exam Vital Signs Temp Pulse Resp BP Pulse Ox O2 Del Method O2 Flow Rate 99.6 F 72 18 136/75 H 90 L Nasal Cannula 3 08/10/24 12:00 08/10/24 16:00 08/10/24 12:00 08/10/24 12:00 08/10/24 12:00 08/10/24 12:00 08/10/24 12:00 Objective Labs 08/10/24 04:41 08/10/24 04:41 Labs: Laboratory Results - last 24 hr 08/10/24 04:41 WBC 6.4 RBC 4.55 Hgb 9.6 L Hct 31.3 L MCV 69 L MCH 21.1 L MCHC 30.7 L RDW Std Deviation 49.4 H Plt Count 267 Neut % (Auto) 71 Lymph % (Auto) 20 [place] % (Auto) 8 Eos % (Auto) 1 Baso % (Auto) 0 Neut # (Auto) 4.5 Lymph # (Auto) 1.2 [place] # (Auto) 0.5 Eos # (Auto) 0.1 Baso # (Auto) 0.0 Immature Gran # (Auto) 0.02 H Absolute Nucleated RBC 0.00 Immature Gran % 0 Nucleated RBC % 0 Sodium 136 Potassium 3.9 Chloride 100 Carbon Dioxide 28.8 Anion Gap 7 BUN 9 Creatinine 0.7 Estim Creat Clear Calc 104.6 eGFR > 60 BUN/Creatinine Ratio 13 Glucose 104 Calculated Osmolality 270 L Calcium 8.4 Corrected Calcium 9.0 Total Bilirubin 1.3 H AST < 10 ALT 7 L Alkaline Phosphatase 72 C-Reactive Prot, Quant 20.2 H Total Protein 5.9 Albumin 3.3 L D Globulin 2.6 Albumin/Globulin Ratio 1.3 Impressions Impression: Pericecal abscess IR drainage Perianal abscess conservative management Assessment & Plan A&P Narrative Pericecal abscess could be due to the underlying inflammatory bowel disease or possible leakage from the appendix Perianal abscess in the setting of inflammatory bowel disease Crohn's disease with fistula Plan Will start the patient on IV Solu-Medrol 40 mg IV push every 12 Consult IR for possible catheter drainage of the right pericecal abscess CRP Prognosis is guarded No need for any colonoscopy at this point or any other invasive GI workup Thank you once again for the opportunity to participate in care of this patient Time Spent With Patient Time: Total time spent is greater than 50% in coordination of care (as documented) at patient's floor/unit and/or counseling patient:
[2024-08-10] MEDS: HEPARIN SOD INJ 5000 UNIT/ML VIAL SC (21:36)
[2024-08-11] VITALS (16 sets, daily range): BP systolic 101–134; BP diastolic 64–88; PULSE 55–74; RESP 13–25; TEMP 35.5–36.7; O2SAT 95–100
[2024-08-11] MEDS: PIPER/TAZO 3.375 GM PREMIX 3.375 GM/50 ML BAG IV ×3 (05:18→21:54)
[2024-08-11] MEDS: oxyCODONE/APAP 5/325 TABLET 1 TAB PO ×3 (05:23→19:29)
[2024-08-11 06:12] LABS: Basophils % (Auto) 0 % (0-2.5); Eosinophils % (Auto) 0 % (0-10); Hematocrit 32.2 % (41.0-53.0); Hemoglobin 9.9 g/dL (13.5-16.0); Immature Granulocytes % (Auto) 1 % (0-0); Immature Granulocytes Auto 0.06 Thou/mm3 (0.00-0.00); Lymphocytes # (Auto) 0.9 Thou/mm3 (1.0-4.8); Lymphocytes % (Auto) 12 % (10-50); Mean Corpuscular HGB Conc 30.7 g/dl (31.0-37.0); Mean Corpuscular Volume 68 fL (80-100); Monocytes # (Auto) 0.2 Thou/mm3 (0.0-0.8); Monocytes % (Auto) 2 % (0-12); Neutrophils # (Auto) 6.6 Thou/mm3 (1.8-7.7); Neutrophils % (Auto) 86 % (37-80); Nucleated Red Blood Cell % 0 /100 WBC (0); Platelet Count 296 Thou/mm3 (140-440); RDW Standard Deviation 47.8 fL (35.1-43.9); Red Blood Count 4.72 Miln/mm3 (4.50-5.90); White Blood Count 7.7 Thou/mm3 (3.8-10.6)
[2024-08-11 07:04] LABS: Albumin, Serum 3.6 gm/dL (3.5-5.0); Albumin/Globulin Ratio 1.4 (1.2-2.2); Alkaline Phosphatase 84 U/L (46-116); Anion Gap 8 (7-16); Aspartate Amino Transferase 11 U/L (0-34); BUN/Creatinine Ratio 20 Ratio (12-20); Bilirubin,Total 1.1 mg/dL (0.3-1.2); Blood Urea Nitrogen 14 mg/dL (9-23); Calcium 8.9 mg/dL (8.3-10.6); Calcium (Corrected) 9.2 mg/dL (8.5-10.1); Carbon Dioxide 29.2 mMol/L (20.0-31.0); Chloride 99 mMol/L (98-107); Creatinine (Component) 0.7 mg/dL (0.6-1.3); Estimated Creatinine Clearance 104.6 mL/min (>60); Globulin 2.6 gm/dL (2.3-3.5); Glucose 146 mg/dL (74-106); Osmolality,Calculated 275 (275-295); Potassium 4.4 mMol/L (3.4-5.1); Sodium 136 mMol/L (136-145); Total Protein 6.2 gm/dL (5.7-8.2); eGFR > 60 See Note
[2024-08-11 07:05] LABS: Alanine Aminotransferase 9 U/L (10-49)
[2024-08-11] MEDS: MethylPREDNISolone SOD SUCC 62.5 MG/ML 2ML VIAL 40 MG IVP ×2 (09:52→21:55)
--- NOTE | 2024-08-11 11:55 | XR_ITS ---
Examination: CT-guided percutaneous placement drainage catheter right pericecal abscess CT abdomen without intravenous contrast Date and time of procedure: August 11, 2024 1352 hours INDICATIONS: Fever abdominal pain this week, right pericecal abscess noted on CT abdomen pelvis July 18, 2024 Informed consent provided. A timeout was completed verifying correct patient, procedure, site and positioning. Technique: Axial 3 mm sections were obtained for localization of the pericecal abscess. Appropriate area is marked. The patient's site was prepped and draped in sterile fashion Maximal sterile barrier technique utilized, including hand hygiene Local anesthesia was obtained with 1% lidocaine. Low dose protocols were performed. One or more of the following dose reduction techniques were used; automated exposure control, adjustment of the mA and/or KV according to patient size, use of iterative reconstruction technique. Utilizing CT fluoroscopic guidance 5 [place] catheter placed in the pericecal abscess followed by wire guide dilators and finally an 8 [place] drainage catheter in proper position under fluoroscopic guidance. Patient appears in stable condition during this procedure. At completion of the procedure, the patient is in satisfactory condition. Estimated blood loss 4 cc Complete culture and sensitivity report to follow Impression: Successful CT-guided percutaneous placement drainage catheter right pericecal abscess
--- NOTE | 2024-08-11 13:29 | XR_ITS ---
Examination: CT abdomen and pelvis without contrast. Coronal 3-D reconstructions. Sagittal 2-D reconstructions. Date and time of exam:August 11, 2024 1331 hours Comparison August 09, 2024 INDICATIONS: Right pericecal abscess abdominal pain and fever this week CTDI: vol (mGy): 4.16 DLP: (mGycm): 228 Technique: Axial images of the abdomen have been obtained, 3 mm slice thickness Intravenous contrast material has not been administered. Low dose protocols were performed. One or more of the following dose reduction techniques were used; automated exposure control, adjustment of the mA and/or KV according to patient size, use of iterative reconstruction technique. Findings: Right pericecal abscess again noted, 33 x 37 mm Bowel projects anterior to this abscess Oblique imaging will be obtained IMPRESSION: Right pericecal abscess as above
[2024-08-11] MEDS: SODIUM CHLORIDE 0.9% 1000 ML 500 ML 999 ML IV (14:08)
[2024-08-11] MEDS: fentaNYL CIT INJ 50 mCg/ML AMP 2ML 125 MCG IV (14:17)
--- NOTE | 2024-08-11 14:23 | ESPR_ITS ---
<Statement entered by Og Santos MD - 08/19/24 09:20> I reviewed above note and agree with findings and plans. I have also personally examined the patient with medicine team and went over assessment and plan with medical team including internet project manager and resident physician. Documentation for date of: 08/11/24 Subjective Subjective Interval history: No significant events overnight. Hemoglobin stable at 9.9, patient to undergo pericecal CT guided abscess drainage. Will continue antibiotics and anticipating discharge within 24 to 48 hours. Exam Vital Signs Temp Pulse Resp BP Pulse Ox O2 Del Method O2 Flow Rate 98.1 F 59 L 19 112/75 98 Room Air 3 08/11/24 12:30 08/11/24 12:30 08/11/24 12:30 08/11/24 12:30 08/11/24 12:30 08/11/24 12:30 08/10/24 12:00 Narrative Exam Physical Exam: GENERAL: Awake, answering questions appropriately in Peruvian, appears stated age, thin appearing HEENT: NC/AT. Moist mucosa. PERRLA/EOMI. CARDIO: Heart RRR, no obvious murmurs, no JVD. PULM: No coughing or visible SOB. Lungs CTA B/L. GI: Abdomen soft, tender to palpation especially on the right upper and lower quadrants versus the left upper and lower quadrants, guarding noted with palpation, no rebound tenderness, borborygmi apparent SKIN/MSK/EXT: No wounds/discoloration/rashes/edema/amputations noted. +Pedal pulses present B/L. NEURO: Oriented x3, Moves extremities x4, no focal neurologic deficits noted Objective Labs 08/11/24 05:30 08/11/24 05:30 Labs: Laboratory Results - last 24 hr 08/11/24 05:30 WBC 7.7 RBC 4.72 Hgb 9.9 L Hct 32.2 L MCV 68 L MCH 21.0 L MCHC 30.7 L RDW Std Deviation 47.8 H Plt Count 296 Neut % (Auto) 86 H Lymph % (Auto) 12 [place] % (Auto) 2 Eos % (Auto) 0 Baso % (Auto) 0 Neut # (Auto) 6.6 Lymph # (Auto) 0.9 L [place] # (Auto) 0.2 Eos # (Auto) 0.0 Baso # (Auto) 0.0 Immature Gran # (Auto) 0.06 H Absolute Nucleated RBC 0.00 Immature Gran % 1 H Nucleated RBC % 0 Sodium 136 Potassium 4.4 D Chloride 99 Carbon Dioxide 29.2 Anion Gap 8 BUN 14 Creatinine 0.7 Estim Creat Clear Calc 104.6 eGFR > 60 BUN/Creatinine Ratio 20 Glucose 146 H Calculated Osmolality 275 Calcium 8.9 Corrected Calcium 9.2 Total Bilirubin 1.1 AST 11 ALT 9 L Alkaline Phosphatase 84 Total Protein 6.2 Albumin 3.6 Globulin 2.6 Albumin/Globulin Ratio 1.4 Quality Measures Quality Measures none Assessment & Plan Assessment Current Active Medications: Generic Name Dose Route Start Last Admin Trade Name Freq PRN Reason Stop Dose Admin Acetaminophen 650 mg 08/09/24 14:35 Acetaminophen 325 Mg Tablet PO 09/08/24 14:34 Q6H PRN Pain 1-3 and/or Fever >100.1 Heparin Sodium (Porcine) 5,000 unit 08/09/24 21:00 08/11/24 09:39 Heparin Sod Inj 5000 Unit/Ml Vial SC 08/23/24 20:59 Not Given Q12HR SEB Piperacillin/Tazobactam/Dextrose 3.375 gm in 50 mls @ 12.5 mls/hr 08/09/24 22:00 08/11/24 05:18 Zosyn IV 08/16/24 21:59 12.5 mls/hr Q8HR SEB Administration Methylprednisolone Sodium Succinate 40 mg 08/10/24 09:00 08/11/24 09:52 Methylprednisolone Sod Succ 62.5 Mg/Ml 2ml Vial IVP 08/17/24 08:59 40 mg BID SEB Administration Morphine Sulfate 1 mg 08/09/24 14:35 08/09/24 19:21 Morphine Sulf Inj 10 Mg/Ml Vial IVP 08/14/24 14:34 1 mg Q4H PRN Administration PAIN SCALE 7-10 (Severe Ondansetron HCl 4 mg 08/09/24 14:35 08/09/24 15:04 Ondansetron Inj 2 Mg/Ml Inj 2 Ml IV 09/08/24 14:34 4 mg Q6H PRN Administration NAUSEA OR VOMITING Protocol Oxycodone/Acetaminophen 1 tab 08/09/24 14:35 08/11/24 11:55 Oxycodone/Apap 5/325 Tablet PO 08/14/24 14:34 1 tab Q6H PRN Administration PAIN SCALE 4-6 (Moderate Plan 48 year-old male with history of Crohn's disease (diagnosed November 2023) presented to the ED with recurrent abdominal pain, nausea and loss of appetite will be admitted for IV antibiotics for the pericecal abscess along with possible IR guided drainage, gastroenterology will be consulted for Crohn's disease management and general surgery will follow for recommendations. #Right pericecal abscess #Crohn's disease Patient presenting with abdominal pain which has been progressively worsening since the past week Patient follows Dr. Mccullough in [place] and is on azathioprine 50 mg daily, mesalamine 1.2 g 4 times daily, prednisone 60 mg daily, adalimumab/Humira 80 mg injections every 2 weeks Recently discharged on 07/21 with pyelonephritis and perianal abscess with oral antibiotics; initially improved but has since worsened in the past week On examination, patient has tenderness to palpation in the right upper and lower quadrant versus the left quadrants with associated guarding CT abdomen pelvis findings show right pericecal abscess measuring 3.4 x 3.7 cm, nonspecific colitis in the descending colon and sigmoid colon and a 12 x 6 mm right perianal abscess General Surgery consulted, appreciate recommendations General Surgery saw the patient in the ED and recommends no surgical intervention but IV antibiotics and possible IR guided drainage Gastroenterology consulted, appreciate recommendations Plan: Broad-spectrum coverage with IV Zosyn every [address] 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 Per notation, patient has had chronic fistula with perianal abscess formation General surgery followed the patient on last admission and recommended no surgical intervention at that time On history taking, patient does state that he does notice some fecal matter when he urinates Plan: Gastroenterology started the patient on IV Solu-Medrol 40 mg daily Urinalysis shows no bacteria but there is some pyuria, hematuria and positive for leukocyte esterase #Microcytic anemia #Likely anemia of chronic disease along with anemia of chronic disease Peripheral smear ordered on 07/18 showed moderate microcytic anemia with variable hypochromasia and without hemolysis favoring iron deficiency state Presenting today with hemoglobin of 11.1 and an MCV of 69 Iron panel from 07/19 shows an iron of 6, TIBC of 161, iron saturation 3%, unsaturated iron binding of 155 and ferritin elevated at 344 Plan: Iron supplementation Outpatient follow-up for hematology referral Hospital Management: Lines: PIV Diet: Cardiac Bowel: Not needed GI prophylaxis: Not needed DVT prophylaxis: Subcu heparin Dispo: IV antibiotics for right pericecal abscess, IR guided drainage, gastroenterology and general surgery recommendations Code: Full This patient care was discussed with my attending Dr. Danielle Baez MD PGY-2 Disclaimer: Minor errors in content engineer may be present since this note was dictated by speech recognition software.
[2024-08-11] MEDS: LIDOCAINE INJ PF 1% 30 ML VIAL 15 ML INFL (14:27)
--- NOTE | 2024-08-11 14:54 | XR_ITS ---
Examination: Abdomen AP single view Technique: AP portable supine abdomen, single view Exam date and time: August 11, 2024 1539 hours INDICATIONS: Post pericecal abscess drainage catheter placement FINDINGS: Pericecal abscess drainage catheter satisfactory position Small bowel ileus IMPRESSION: Pericecal abscess drainage catheter satisfactory position
[2024-08-11] MEDS: MORPHINE SULF INJ 10 MG/ML VIAL IVP (16:02)
[2024-08-11] MEDS: ONDANSETRON INJ 2 MG/ML INJ 2 ML 4 MG IV (16:02)
--- NOTE | 2024-08-11 20:14 | ESPR_ITS ---
Documentation for date of: 08/11/24 Subjective Subjective Interval history: Place of the drainage catheter in proper place on imaging study Exam Vital Signs Temp Pulse Resp BP Pulse Ox O2 Del Method O2 Flow Rate 97.1 F 68 18 132/88 H 98 Room Air 3 08/11/24 19:54 08/11/24 19:54 08/11/24 19:54 08/11/24 19:54 08/11/24 19:54 08/11/24 19:54 08/11/24 14:40 Objective Labs 08/11/24 05:30 08/11/24 05:30 Labs: Laboratory Results - last 24 hr 08/11/24 05:30 WBC 7.7 RBC 4.72 Hgb 9.9 L Hct 32.2 L MCV 68 L MCH 21.0 L MCHC 30.7 L RDW Std Deviation 47.8 H Plt Count 296 Neut % (Auto) 86 H Lymph % (Auto) 12 [place] % (Auto) 2 Eos % (Auto) 0 Baso % (Auto) 0 Neut # (Auto) 6.6 Lymph # (Auto) 0.9 L [place] # (Auto) 0.2 Eos # (Auto) 0.0 Baso # (Auto) 0.0 Immature Gran # (Auto) 0.06 H Absolute Nucleated RBC 0.00 Immature Gran % 1 H Nucleated RBC % 0 Sodium 136 Potassium 4.4 D Chloride 99 Carbon Dioxide 29.2 Anion Gap 8 BUN 14 Creatinine 0.7 Estim Creat Clear Calc 104.6 eGFR > 60 BUN/Creatinine Ratio 20 Glucose 146 H Calculated Osmolality 275 Calcium 8.9 Corrected Calcium 9.2 Total Bilirubin 1.1 AST 11 ALT 9 L Alkaline Phosphatase 84 Total Protein 6.2 Albumin 3.6 Globulin 2.6 Albumin/Globulin Ratio 1.4 Impressions Impression: # Pericecal abscess Status post catheter drainage Assessment & Plan A&P Narrative Pericecal abscess could be due to the underlying inflammatory bowel disease or possible leakage from the appendix Perianal abscess in the setting of inflammatory bowel disease Crohn's disease with fistula Plan Will start the patient on IV Solu-Medrol 40 mg IV push every 12 Consult IR for possible catheter drainage of the right pericecal abscess CRP Prognosis is guarded No need for any colonoscopy at this point or any other invasive GI workup Thank you once again for the opportunity to participate in care of this patient Time Spent With Patient Time: Total time spent is greater than 50% in coordination of care (as documented) at patient's floor/unit and/or counseling patient:
[2024-08-11] MEDS: ACETAMINOPHEN 325 MG TABLET 650 MG PO (22:14)
[2024-08-12] VITALS (7 sets, daily range): BP systolic 104–138; BP diastolic 67–87; PULSE 47–63; RESP 15–19; TEMP 36.1–36.9; O2SAT 96–99; BMI 22.1
[2024-08-12 05:22] LABS: Basophils % (Auto) 0 % (0-2.5); Eosinophils % (Auto) 0 % (0-10); Hematocrit 30.8 % (41.0-53.0); Hemoglobin 9.6 g/dL (13.5-16.0); Immature Granulocytes % (Auto) 0 % (0-0); Immature Granulocytes Auto 0.03 Thou/mm3 (0.00-0.00); Lymphocytes # (Auto) 0.5 Thou/mm3 (1.0-4.8); Lymphocytes % (Auto) 6 % (10-50); Mean Corpuscular HGB Conc 31.2 g/dl (31.0-37.0); Mean Corpuscular Hemoglobin 21.1 pg (25.0-35.0); Mean Corpuscular Volume 68 fL (80-100); Monocytes # (Auto) 0.2 Thou/mm3 (0.0-0.8); Monocytes % (Auto) 2 % (0-12); Neutrophils # (Auto) 8.3 Thou/mm3 (1.8-7.7); Neutrophils % (Auto) 92 % (37-80); Nucleated Red Blood Cell % 0 /100 WBC (0); Platelet Count 321 Thou/mm3 (140-440); RDW Standard Deviation 48.4 fL (35.1-43.9); Red Blood Count 4.56 Miln/mm3 (4.50-5.90); White Blood Count 9.1 Thou/mm3 (3.8-10.6)
[2024-08-12] MEDS: PIPER/TAZO 3.375 GM PREMIX 3.375 GM/50 ML BAG IV ×3 (05:39→22:01)
[2024-08-12 05:52] LABS: Alanine Aminotransferase 8 U/L (10-49); Albumin, Serum 3.5 gm/dL (3.5-5.0); Albumin/Globulin Ratio 1.5 (1.2-2.2); Alkaline Phosphatase 84 U/L (46-116); Anion Gap 9 (7-16); Aspartate Amino Transferase < 10 U/L (0-34); BUN/Creatinine Ratio 21 Ratio (12-20); Bilirubin,Total 0.6 mg/dL (0.3-1.2); Blood Urea Nitrogen 17 mg/dL (9-23); Calcium 8.7 mg/dL (8.3-10.6); Calcium (Corrected) 9.1 mg/dL (8.5-10.1); Carbon Dioxide 29.5 mMol/L (20.0-31.0); Chloride 100 mMol/L (98-107); Creatinine (Component) 0.8 mg/dL (0.6-1.3); Estimated Creatinine Clearance 91.5 mL/min (>60); Globulin 2.4 gm/dL (2.3-3.5); Glucose 163 mg/dL (74-106); Osmolality,Calculated 281 (275-295); Potassium 4.3 mMol/L (3.4-5.1); Sodium 138 mMol/L (136-145); Total Protein 5.9 gm/dL (5.7-8.2); eGFR > 60 See Note
[2024-08-12] MEDS: oxyCODONE/APAP 5/325 TABLET 1 TAB PO ×3 (06:32→19:44)
[2024-08-12] MEDS: MethylPREDNISolone SOD SUCC 62.5 MG/ML 2ML VIAL 40 MG IVP (09:36)
--- NOTE | 2024-08-12 10:16 | PC.SS ---
Follow up note: Pt is on IV antibiotic. Pt had abscess drainage yesterday. Pt will return home upon dc.
--- NOTE | 2024-08-12 12:32 | PC.DIETICIAN ---
Dietitian note: 1. Recommend low fiber diet when diet advanced 2. RD to add Banatrol Plus BID. Stir 1 packet into 120ml water or fruit juice or add to applesauce. 3. RD to add Ensure Plus once daily after dinner to offer extra nutrition
--- NOTE | 2024-08-12 15:13 | ESPR_ITS ---
<Statement entered by Og Santos MD - 08/19/24 09:21> I reviewed above note and agree with findings and plans. I have also personally examined the patient with medicine team and went over assessment and plan with medical team including news internship and resident physician. Documentation for date of: 08/12/24 Subjective Subjective Interval history: Patient examined at bedside. No major events overnight. Had bowel movement this morning. S/p CT-guided percutaneous placement drainage catheter of right pericecal abscess completed 08/11. Complains of right lower abdominal pain at site of drainage, 01/20. He denies any nausea, vomiting, or fevers. Vitals are stable, labs reviewed and stable. Drainage in collection bag ~30cc, red. No pus. Will repeat CT a/p with contrast tomorrow evaluated by Dr. Cuello--may remove drainage catheter. Exam Vital Signs Temp Pulse Resp BP Pulse Ox O2 Del Method O2 Flow Rate 98.5 F 49 L 18 121/80 98 Room Air 3 08/12/24 12:00 08/12/24 12:00 08/12/24 12:00 08/12/24 12:00 08/12/24 12:00 08/12/24 12:00 08/11/24 14:40 Narrative Exam GENERAL: Awake, answering questions appropriately in Cam[place]onian, middle aged male, thin appearing HEENT: NC/AT. Moist mucosa. PERRLA/EOMI. CARDIO: Heart RRR, no obvious murmurs, no JVD. PULM: No coughing or visible SOB. Lungs CTA B/L. GI: Abdomen soft, tender to palpation especially on the right upper and lower quadrants versus the left upper and lower quadrants, guarding noted with palpation, no rebound tenderness. Has drain set up in RLQ, draining blood, no pus. SKIN/MSK/EXT: No wounds/discoloration/rashes/edema/amputations noted. +Pedal pulses present B/L. NEURO: Oriented x3, Moves extremities x4, no focal neurologic deficits noted Objective Labs 08/12/24 04:45 08/12/24 04:45 Labs: Laboratory Results - last 24 hr 08/12/24 04:45 WBC 9.1 RBC 4.56 Hgb 9.6 L Hct 30.8 L MCV 68 L MCH 21.1 L MCHC 31.2 RDW Std Deviation 48.4 H Plt Count 321 Neut % (Auto) 92 H Lymph % (Auto) 6 L [place] % (Auto) 2 Eos % (Auto) 0 Baso % (Auto) 0 Neut # (Auto) 8.3 H Lymph # (Auto) 0.5 L [place] # (Auto) 0.2 Eos # (Auto) 0.0 Baso # (Auto) 0.0 Immature Gran # (Auto) 0.03 H Absolute Nucleated RBC 0.00 Immature Gran % 0 Nucleated RBC % 0 Sodium 138 Potassium 4.3 Chloride 100 Carbon Dioxide 29.5 Anion Gap 9 BUN 17 Creatinine 0.8 Estim Creat Clear Calc 91.5 eGFR > 60 BUN/Creatinine Ratio 21 H Glucose 163 H Calculated Osmolality 281 Calcium 8.7 Corrected Calcium 9.1 Total Bilirubin 0.6 D AST < 10 ALT 8 L Alkaline Phosphatase 84 Total Protein 5.9 Albumin 3.5 Globulin 2.4 Albumin/Globulin Ratio 1.5 Quality Measures Quality Measures none Assessment & Plan Assessment Current Active Medications: Generic Name Dose Route Start Last Admin Trade Name Freq PRN Reason Stop Dose Admin Acetaminophen 650 mg 08/09/24 14:35 08/11/24 22:14 Acetaminophen 325 Mg Tablet PO 09/08/24 14:34 650 mg Q6H PRN Administration Pain 1-3 and/or Fever >100.1 Heparin Sodium (Porcine) 5,000 unit 08/09/24 21:00 08/11/24 09:39 Heparin Sod Inj 5000 Unit/Ml Vial SC 08/23/24 20:59 Not Given Q12HR SEB Piperacillin/Tazobactam/Dextrose 3.375 gm in 50 mls @ 12.5 mls/hr 08/09/24 22:00 08/12/24 13:28 Zosyn IV 08/16/24 21:59 12.5 mls/hr Q8HR SEB Administration Methylprednisolone Sodium Succinate 40 mg 08/12/24 21:00 Methylprednisolone Sod Succ 40 Mg Vial IVP 08/17/24 20:59 BID SEB Morphine Sulfate 1 mg 08/09/24 14:35 08/11/24 16:02 Morphine Sulf Inj 10 Mg/Ml Vial IVP 08/14/24 14:34 1 mg Q4H PRN Administration PAIN SCALE 7-10 (Severe Ondansetron HCl 4 mg 08/09/24 14:35 08/11/24 16:02 Ondansetron Inj 2 Mg/Ml Inj 2 Ml IV 09/08/24 14:34 4 mg Q6H PRN Administration NAUSEA OR VOMITING Protocol Oxycodone/Acetaminophen 1 tab 08/09/24 14:35 08/12/24 13:27 Oxycodone/Apap 5/325 Tablet PO 08/14/24 14:34 1 tab Q6H PRN Administration PAIN SCALE 4-6 (Moderate Plan 48 year-old male with history of Crohn's disease (diagnosed November 2023) presented to the ED with recurrent abdominal pain, nausea and loss of appetite will be admitted for IV antibiotics for the pericecal abscess along with possible IR guided drainage, gastroenterology will be consulted for Crohn's disease management and general surgery will follow for recommendations. #Right pericecal abscess #s/p CT guided I&D #Crohn's disease Patient presenting with abdominal pain which has been progressively worsening since the past week Patient follows Dr. Mccullough in [place] and is on azathioprine 50 mg daily, mesalamine 1.2 g 4 times daily, prednisone 60 mg daily, adalimumab/Humira 80 mg injections every 2 weeks Recently discharged on 07/21 with pyelonephritis and perianal abscess with oral antibiotics; initially improved but has since worsened in the past week On examination, patient has tenderness to palpation in the right upper and lower quadrant versus the left quadrants with associated guarding CT abdomen pelvis findings show right pericecal abscess measuring 3.4 x 3.7 cm, nonspecific colitis in the descending colon and sigmoid colon and a 12 x 6 mm right perianal abscess General Surgery consulted, appreciate recommendations General Surgery saw the patient in the ED and recommends no surgical intervention but IV antibiotics and possible IR guided drainage Gastroenterology consulted, appreciate recommendations S/p CT-guided percutaneous placement drainage catheter of right pericecal abscess completed 08/11. Plan: -Broad-spectrum coverage with IV Zosyn every 8 hours -Abscess speciation pending -Multimodal pain management -repeat CT a/p with contrast tomorrow evaluated by Dr. Cuello--may remove drainage catheter. 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 Per notation, patient has had chronic fistula with perianal abscess formation General surgery followed the patient on last admission and recommended no surgical intervention at that time On history taking, patient does state that he does notice some fecal matter when he urinates Plan: Gastroenterology started the patient on IV Solu-Medrol 40 mg daily Urinalysis shows no bacteria but there is some pyuria, hematuria and positive for leukocyte esterase #Microcytic anemia #Likely anemia of chronic disease along with anemia of chronic disease Peripheral smear ordered on 07/18 showed moderate microcytic anemia with variable hypochromasia and without hemolysis favoring iron deficiency state Presenting today with hemoglobin of 11.1 and an MCV of 69 Iron panel from 07/19 shows an iron of 6, TIBC of 161, iron saturation 3%, unsaturated iron binding of 155 and ferritin elevated at 344 Plan: Iron supplementation Outpatient follow-up for hematology referral Hospital Management: Lines: PIV Diet: Cardiac Bowel: Not needed GI prophylaxis: Not needed DVT prophylaxis: Subcu heparin Dispo: IV antibiotics for right pericecal abscess, CT with contrast tomorrow Code: Full This patient care was discussed with my attending Dr. Danielle Moyer, PGY-2 Disclaimer: Minor errors in laundry operator wash room may be present since this note was dictated by speech recognition software.
--- NOTE | 2024-08-12 21:25 | ESPR_ITS ---
Documentation for date of: 08/12/24 Subjective Subjective Interval history: Status post catheter placement for abdominal abscess repeat CT abdomen pelvis tomorrow to see if the catheter is still needed Exam Vital Signs Temp Pulse Resp BP Pulse Ox O2 Del Method O2 Flow Rate 97.2 F 51 L 16 131/84 H 98 Room Air 3 08/12/24 20:00 08/12/24 20:00 08/12/24 20:00 08/12/24 20:00 08/12/24 20:00 08/12/24 20:00 08/11/24 14:40 Objective Labs 08/12/24 04:45 08/12/24 04:45 Labs: Laboratory Results - last 24 hr 08/12/24 04:45 WBC 9.1 RBC 4.56 Hgb 9.6 L Hct 30.8 L MCV 68 L MCH 21.1 L MCHC 31.2 RDW Std Deviation 48.4 H Plt Count 321 Neut % (Auto) 92 H Lymph % (Auto) 6 L [place] % (Auto) 2 Eos % (Auto) 0 Baso % (Auto) 0 Neut # (Auto) 8.3 H Lymph # (Auto) 0.5 L [place] # (Auto) 0.2 Eos # (Auto) 0.0 Baso # (Auto) 0.0 Immature Gran # (Auto) 0.03 H Absolute Nucleated RBC 0.00 Immature Gran % 0 Nucleated RBC % 0 Sodium 138 Potassium 4.3 Chloride 100 Carbon Dioxide 29.5 Anion Gap 9 BUN 17 Creatinine 0.8 Estim Creat Clear Calc 91.5 eGFR > 60 BUN/Creatinine Ratio 21 H Glucose 163 H Calculated Osmolality 281 Calcium 8.7 Corrected Calcium 9.1 Total Bilirubin 0.6 D AST < 10 ALT 8 L Alkaline Phosphatase 84 Total Protein 5.9 Albumin 3.5 Globulin 2.4 Albumin/Globulin Ratio 1.5 Impressions Impression: # Lower abdominal abscess requiring catheter drainage by IR Repeat CT to evaluate status of the fluid collection and abscess Assessment & Plan A&P Narrative Pericecal abscess could be due to the underlying inflammatory bowel disease or possible leakage from the appendix Perianal abscess in the setting of inflammatory bowel disease Crohn's disease with fistula Plan Will start the patient on IV Solu-Medrol 40 mg IV push every 12 Consult IR for possible catheter drainage of the right pericecal abscess CRP Prognosis is guarded No need for any colonoscopy at this point or any other invasive GI workup Thank you once again for the opportunity to participate in care of this patient Time Spent With Patient Time: Total time spent is greater than 50% in coordination of care (as documented) at patient's floor/unit and/or counseling patient:
[2024-08-13] VITALS (8 sets, daily range): BP systolic 110–142; BP diastolic 72–88; PULSE 41–52; RESP 16; TEMP 36–36.2; O2SAT 98–99
[2024-08-13] MEDS: oxyCODONE/APAP 5/325 TABLET 1 TAB PO ×3 (05:40→19:24)
[2024-08-13] MEDS: PIPER/TAZO 3.375 GM PREMIX 3.375 GM/50 ML BAG IV ×3 (05:41→21:53)
[2024-08-13 06:09] LABS: Basophils % (Auto) 0 % (0-2.5); Eosinophils % (Auto) 0 % (0-10); Hematocrit 30.1 % (41.0-53.0); Hemoglobin 9.3 g/dL (13.5-16.0); Immature Granulocytes % (Auto) 1 % (0-0); Immature Granulocytes Auto 0.03 Thou/mm3 (0.00-0.00); Lymphocytes # (Auto) 0.5 Thou/mm3 (1.0-4.8); Lymphocytes % (Auto) 11 % (10-50); Mean Corpuscular HGB Conc 30.9 g/dl (31.0-37.0); Mean Corpuscular Hemoglobin 21.2 pg (25.0-35.0); Mean Corpuscular Volume 69 fL (80-100); Monocytes # (Auto) 0.2 Thou/mm3 (0.0-0.8); Monocytes % (Auto) 4 % (0-12); Neutrophils # (Auto) 3.4 Thou/mm3 (1.8-7.7); Neutrophils % (Auto) 84 % (37-80); Nucleated Red Blood Cell % 0 /100 WBC (0); Platelet Count 273 Thou/mm3 (140-440); RDW Standard Deviation 49.6 fL (35.1-43.9); Red Blood Count 4.38 Miln/mm3 (4.50-5.90); White Blood Count 4.1 Thou/mm3 (3.8-10.6)
[2024-08-13 06:25] LABS: Alanine Aminotransferase 9 U/L (10-49); Albumin, Serum 3.4 gm/dL (3.5-5.0); Albumin/Globulin Ratio 1.4 (1.2-2.2); Alkaline Phosphatase 76 U/L (46-116); Anion Gap 9 (7-16); Aspartate Amino Transferase 11 U/L (0-34); BUN/Creatinine Ratio 27 Ratio (12-20); Bilirubin,Total 0.5 mg/dL (0.3-1.2); Blood Urea Nitrogen 19 mg/dL (9-23); Calcium 9.2 mg/dL (8.3-10.6); Calcium (Corrected) 9.7 mg/dL (8.5-10.1); Carbon Dioxide 30.7 mMol/L (20.0-31.0); Chloride 99 mMol/L (98-107); Creatinine (Component) 0.7 mg/dL (0.6-1.3); Estimated Creatinine Clearance 100.8 mL/min (>60); Globulin 2.5 gm/dL (2.3-3.5); Glucose 150 mg/dL (74-106); Osmolality,Calculated 282 (275-295); Potassium 4.4 mMol/L (3.4-5.1); Sodium 139 mMol/L (136-145); Total Protein 5.9 gm/dL (5.7-8.2); eGFR > 60 See Note
--- NOTE | 2024-08-13 08:00 | XR_ITS ---
Examination: CT abdomen with intravenous contrast CT pelvis with intravenous contrast 2-D coronal reconstructions 2-D sagittal reconstructions Date and time of exam:August 13, 2024 1128 hours Comparison August 11, 2024 INDICATIONS: Diagnosis ruptured acute appendicitis with pericecal abscess on CT abdomen study August 11, 2024. CTDI: vol (mGy) 4.33 DLP: (mGycm) 246 Technique: Multiple axial sections of the abdomen and pelvis have been obtained. 64 slice high-resolution scanner used. 3 mm axial sections have been obtained, post intravenous injection 60 cc [id number] 2-D sagittal, coronal reconstructions obtained. Low dose protocols were performed. One or more of the following dose reduction techniques were used; automated exposure control, adjustment of the mA and/or KV according to patient size, use of iterative reconstruction technique. Findings: The pericecal abscess has markedly decreased in size compared to the prior study, 8mm residual abscess seen Catheter is in satisfactory position Examination is otherwise unchanged IMPRESSION: The pericecal abscess has markedly decreased in size compared with the prior study
--- NOTE | 2024-08-13 14:14 | XR_ITS ---
Examination: Fluoroscopically guided removal abdomen abscess drainage catheter Fluoroscopy Exam date and time: August 13, 2024 1500 hours INDICATIONS: History right pericecal abscess, CT examination today demonstrates marked decrease in size of right pericecal abscess with satisfactory position of drainage catheter TECHNIQUE AND FINDINGS: Skin prepped over the entrance site of the abscess drainage catheter Sterile drape applied hand hygiene 1% lidocaine administered for local anesthesia Utilizing fluoroscopic guidance 0.3 x 1 5 placed through the drainage catheter to straighten the pigtail 9 was successful removal Estimated blood loss 2 cc Fluoroscopy 0.1 minute radiation dose 0.76 milligray 2 spot abdomen films, the last film no longer demonstrating the abscess drainage catheter IMPRESSION: Successful fluoroscopically guided removal abdominal abscess drainage catheter
[2024-08-13] MEDS: ACETAMINOPHEN 325 MG TABLET 650 MG PO (15:07)
--- NOTE | 2024-08-13 15:28 | ESPR_ITS ---
<Statement entered by Og Santos MD - 08/21/24 13:34> I reviewed above note and agree with findings and plans. I have also personally examined the patient with medicine team and went over assessment and plan with medical team including sales and marketing intern and resident physician. Documentation for date of: 08/13/24 Subjective Subjective Interval history: Patient examined at bedside. Overnight he was bradycardic rate 40-50s but remained asymptomatic. Last bowel movement was 3 AM this morning. Vitals and labs unremarkable. Repeat CT abdomen pelvis with contrast this morning showed significant improvement in the abscess with decrease in size. Per Dr. Cuello, patient can have drainage catheter removed. Anticipate discharge in next 24 hours with ciprofloxacin for 5 days. Exam Vital Signs Temp Pulse Resp BP Pulse Ox O2 Del Method O2 Flow Rate 97 F 47 L 16 142/88 H 98 Room Air 3 08/13/24 12:00 08/13/24 12:00 08/13/24 12:00 08/13/24 12:00 08/13/24 12:00 08/13/24 12:00 08/11/24 14:40 Narrative Exam GENERAL: Awake, answering questions appropriately in [place], middle aged male, thin appearing HEENT: NC/AT. Moist mucosa. PERRLA/EOMI. CARDIO: Heart RRR, no obvious murmurs, no JVD. PULM: No coughing or visible SOB. Lungs CTA B/L. GI: Abdomen soft, tender to palpation especially on the right upper and lower quadrants versus the left upper and lower quadrants, guarding noted with palpation, no rebound tenderness. Has drain set up in RLQ, draining blood, no pus. SKIN/MSK/EXT: No wounds/discoloration/rashes/edema/amputations noted. +Pedal pulses present B/L. NEURO: Oriented x3, Moves extremities x4, no focal neurologic deficits noted Objective Labs 08/13/24 04:57 08/13/24 04:57 Labs: Laboratory Results - last 24 hr 08/13/24 04:57 WBC 4.1 D RBC 4.38 L Hgb 9.3 L Hct 30.1 L MCV 69 L MCH 21.2 L MCHC 30.9 L RDW Std Deviation 49.6 H Plt Count 273 D Neut % (Auto) 84 H Lymph % (Auto) 11 [place] % (Auto) 4 Eos % (Auto) 0 Baso % (Auto) 0 Neut # (Auto) 3.4 Lymph # (Auto) 0.5 L [place] # (Auto) 0.2 Eos # (Auto) 0.0 Baso # (Auto) 0.0 Immature Gran # (Auto) 0.03 H Absolute Nucleated RBC 0.00 Immature Gran % 1 H Nucleated RBC % 0 Sodium 139 Potassium 4.4 Chloride 99 Carbon Dioxide 30.7 Anion Gap 9 BUN 19 Creatinine 0.7 Estim Creat Clear Calc 100.8 eGFR > 60 BUN/Creatinine Ratio 27 H Glucose 150 H Calculated Osmolality 282 Calcium 9.2 Corrected Calcium 9.7 Total Bilirubin 0.5 AST 11 ALT 9 L Alkaline Phosphatase 76 Total Protein 5.9 Albumin 3.4 L Globulin 2.5 Albumin/Globulin Ratio 1.4 Quality Measures Quality Measures none Assessment & Plan Assessment Current Active Medications: Generic Name Dose Route Start Last Admin Trade Name Freq PRN Reason Stop Dose Admin Acetaminophen 650 mg 08/09/24 14:35 08/13/24 15:07 Acetaminophen 325 Mg Tablet PO 09/08/24 14:34 650 mg Q6H PRN Administration Pain 1-3 and/or Fever >100.1 Heparin Sodium (Porcine) 5,000 unit 08/09/24 21:00 08/11/24 09:39 Heparin Sod Inj 5000 Unit/Ml Vial SC 08/23/24 20:59 Not Given Q12HR SEB Piperacillin/Tazobactam/Dextrose 3.375 gm in 50 mls @ 12.5 mls/hr 08/09/24 22:00 08/13/24 13:35 Zosyn IV 08/16/24 21:59 12.5 mls/hr Q8HR SEB Administration Methylprednisolone Sodium Succinate 40 mg 08/12/24 21:00 08/13/24 08:25 Methylprednisolone Sod Succ 40 Mg Vial IVP 08/17/24 20:59 40 mg BID SEB Administration Morphine Sulfate 1 mg 08/09/24 14:35 08/11/24 16:02 Morphine Sulf Inj 10 Mg/Ml Vial IVP 08/14/24 14:34 1 mg Q4H PRN Administration PAIN SCALE 7-10 (Severe Ondansetron HCl 4 mg 08/09/24 14:35 08/11/24 16:02 Ondansetron Inj 2 Mg/Ml Inj 2 Ml IV 09/08/24 14:34 4 mg Q6H PRN Administration NAUSEA OR VOMITING Protocol Oxycodone/Acetaminophen 1 tab 08/09/24 14:35 08/13/24 13:35 Oxycodone/Apap 5/325 Tablet PO 08/14/24 14:34 1 tab Q6H PRN Administration PAIN SCALE 4-6 (Moderate Plan 48 year-old male with history of Crohn's disease (diagnosed November 2023) presented to the ED with recurrent abdominal pain, nausea and loss of appetite will be admitted for IV antibiotics for the pericecal abscess along with possible IR guided drainage, gastroenterology will be consulted for Crohn's disease management and general surgery will follow for recommendations. #Right pericecal abscess, E coli #s/p CT guided I&D #Crohn's disease Patient presenting with abdominal pain which has been progressively worsening since the past week Patient follows Dr. Mccullough in [place] and is on azathioprine 50 mg daily, mesalamine 1.2 g 4 times daily, prednisone 60 mg daily, adalimumab/Humira 80 mg injections every 2 weeks Recently discharged on 07/21 with pyelonephritis and perianal abscess with oral antibiotics; initially improved but has since worsened in the past week On examination, patient has tenderness to palpation in the right upper and lower quadrant versus the left quadrants with associated guarding CT abdomen pelvis findings show right pericecal abscess measuring 3.4 x 3.7 cm, nonspecific colitis in the descending colon and sigmoid colon and a 12 x 6 mm right perianal abscess General Surgery consulted, appreciate recommendations General Surgery saw the patient in the ED and recommends no surgical intervention but IV antibiotics and possible IR guided drainage Gastroenterology consulted, appreciate recommendations S/p CT-guided percutaneous placement drainage catheter of right pericecal abscess completed 08/11. Plan: -Repeat CT abdomen pelvis with contrast this morning showed significant improvement in the abscess with decrease in size -Broad-spectrum coverage with IV Zosyn every 8 hours -Abscess culture grew Ecoli. 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 Per notation, patient has had chronic fistula with perianal abscess formation General surgery followed the patient on last admission and recommended no surgical intervention at that time On history taking, patient does state that he does notice some fecal matter when he urinates Plan: Gastroenterology started the patient on IV Solu-Medrol 40 mg daily Urinalysis shows no bacteria but there is some pyuria, hematuria and positive for leukocyte esterase #Microcytic anemia #Likely anemia of chronic disease along with anemia of chronic disease Peripheral smear ordered on 07/18 showed moderate microcytic anemia with variable hypochromasia and without hemolysis favoring iron deficiency state Presenting today with hemoglobin of 11.1 and an MCV of 69 Iron panel from 07/19 shows an iron of 6, TIBC of 161, iron saturation 3%, unsaturated iron binding of 155 and ferritin elevated at 344 Plan: Iron supplementation Outpatient follow-up for hematology referral Hospital Management: Lines: PIV Diet: Cardiac Bowel: Not needed GI prophylaxis: Not needed DVT prophylaxis: Subcu heparin Dispo: D/c tomorrow with oral antibiotics Code: Full This patient care was discussed with my attending Dr. Danielle Moyer, PGY-1
--- NOTE | 2024-08-13 21:00 | PD.IMPROG ---
Documentation for date of: 08/13/24 Subjective Subjective Interval history: Pigtail drainage catheter removed by IR after CT scan of the abdomen pelvis showed that the abscess has really decreased in size Exam Vital Signs Temp Pulse Resp BP Pulse Ox O2 Del Method O2 Flow Rate 96.9 F 51 L 16 124/86 H 98 Room Air 3 08/13/24 20:00 08/13/24 20:00 08/13/24 20:00 08/13/24 20:00 08/13/24 20:00 08/13/24 20:00 08/11/24 14:40 Objective Labs 08/13/24 04:57 08/13/24 04:57 Labs: Laboratory Results - last 24 hr 08/13/24 04:57 WBC 4.1 D RBC 4.38 L Hgb 9.3 L Hct 30.1 L MCV 69 L MCH 21.2 L MCHC 30.9 L RDW Std Deviation 49.6 H Plt Count 273 D Neut % (Auto) 84 H Lymph % (Auto) 11 [place] % (Auto) 4 Eos % (Auto) 0 Baso % (Auto) 0 Neut # (Auto) 3.4 Lymph # (Auto) 0.5 L [place] # (Auto) 0.2 Eos # (Auto) 0.0 Baso # (Auto) 0.0 Immature Gran # (Auto) 0.03 H Absolute Nucleated RBC 0.00 Immature Gran % 1 H Nucleated RBC % 0 Sodium 139 Potassium 4.4 Chloride 99 Carbon Dioxide 30.7 Anion Gap 9 BUN 19 Creatinine 0.7 Estim Creat Clear Calc 100.8 eGFR > 60 BUN/Creatinine Ratio 27 H Glucose 150 H Calculated Osmolality 282 Calcium 9.2 Corrected Calcium 9.7 Total Bilirubin 0.5 AST 11 ALT 9 L Alkaline Phosphatase 76 Total Protein 5.9 Albumin 3.4 L Globulin 2.5 Albumin/Globulin Ratio 1.4 Impressions Impression: Status post removal of the pigtail catheter by IR Continue IV antibiotics Assessment & Plan A&P Narrative Pericecal abscess could be due to the underlying inflammatory bowel disease or possible leakage from the appendix Perianal abscess in the setting of inflammatory bowel disease Crohn's disease with fistula Plan Will start the patient on IV Solu-Medrol 40 mg IV push every 12 Consult IR for possible catheter drainage of the right pericecal abscess CRP Prognosis is guarded No need for any colonoscopy at this point or any other invasive GI workup Thank you once again for the opportunity to participate in care of this patient Time Spent With Patient Time: Total time spent is greater than 50% in coordination of care (as documented) at patient's floor/unit and/or counseling patient:
[2024-08-14] VITALS: BP 102/69; PULSE 44; PULSE 50; RESP 16; TEMP 36.2; O2SAT 99
[2024-08-14] MEDS: oxyCODONE/APAP 5/325 TABLET 1 TAB PO ×2 (02:13→08:41)
[2024-08-14 04:00] VITALS: BP 111/74; PULSE 41; PULSE 50; RESP 17; TEMP 36.2; O2SAT 98
[2024-08-14 05:33] LABS: Basophils % (Auto) 0 % (0-2.5); Eosinophils % (Auto) 0 % (0-10); Hematocrit 29.6 % (41.0-53.0); Immature Granulocytes % (Auto) 1 % (0-0); Immature Granulocytes Auto 0.04 Thou/mm3 (0.00-0.00); Lymphocytes # (Auto) 0.6 Thou/mm3 (1.0-4.8); Lymphocytes % (Auto) 9 % (10-50); Mean Corpuscular HGB Conc 30.4 g/dl (31.0-37.0); Mean Corpuscular Hemoglobin 21.1 pg (25.0-35.0); Mean Corpuscular Volume 70 fL (80-100); Monocytes # (Auto) 0.2 Thou/mm3 (0.0-0.8); Monocytes % (Auto) 3 % (0-12); Neutrophils # (Auto) 5.9 Thou/mm3 (1.8-7.7); Neutrophils % (Auto) 87 % (37-80); Nucleated Red Blood Cell % 0 /100 WBC (0); Platelet Count 290 Thou/mm3 (140-440); RDW Standard Deviation 49.9 fL (35.1-43.9); Red Blood Count 4.26 Miln/mm3 (4.50-5.90); White Blood Count 6.8 Thou/mm3 (3.8-10.6)
[2024-08-14] MEDS: PIPER/TAZO 3.375 GM PREMIX 3.375 GM/50 ML BAG IV (06:17)
[2024-08-14 06:29] LABS: Alanine Aminotransferase 8 U/L (10-49); Albumin, Serum 3.1 gm/dL (3.5-5.0); Albumin/Globulin Ratio 1.4 (1.2-2.2); Alkaline Phosphatase 78 U/L (46-116); Anion Gap 8 (7-16); Aspartate Amino Transferase < 10 U/L (0-34); BUN/Creatinine Ratio 26 Ratio (12-20); Bilirubin,Total 0.4 mg/dL (0.3-1.2); Blood Urea Nitrogen 18 mg/dL (9-23); Calcium 8.6 mg/dL (8.3-10.6); Calcium (Corrected) 9.3 mg/dL (8.5-10.1); Carbon Dioxide 31.4 mMol/L (20.0-31.0); Chloride 97 mMol/L (98-107); Creatinine (Component) 0.7 mg/dL (0.6-1.3); Estimated Creatinine Clearance 100.7 mL/min (>60); Globulin 2.2 gm/dL (2.3-3.5); Glucose 156 mg/dL (74-106); Osmolality,Calculated 276 (275-295); Potassium 4.4 mMol/L (3.4-5.1); Sodium 136 mMol/L (136-145); Total Protein 5.3 gm/dL (5.7-8.2); eGFR > 60 See Note
[2024-08-14 08:00] VITALS: BP 113/77; PULSE 49; PULSE 52; RESP 16; TEMP 35.9; O2SAT 99
--- NOTE | 2024-08-14 09:34 | PC.SS ---
Follow up note: Advance diet. On IV antibiotic. Pt will return home upon dc.
[2024-08-14 12:00] VITALS: BP 122/76; PULSE 56; PULSE 68; RESP 19; TEMP 36.2; O2SAT 96
--- NOTE | 2024-08-14 12:43 | PD.RESDS ---
Planned Discharge Date 08/14/24 DS: Providers Provider Date of admission: 08/09/24 14:35 Primary care physician: Mauro Jones MD Admitting Provider: Luis Ornelas MD Attending Provider on Admission: Og Santos MD Consults: 08/09/24 14:38 Consult to Gastroenterology Routine Comment: History of Crohn's disease Consulting Provider: Pardeep Butler 08/09/24 14:40 Consult to General Surgery Routine Comment: Pericecal abscess, Perianal absc/chronic fistula? Consulting Provider: Lenore Matthews Attending Provider on DC: Og Santos MD Discharging Provider: Og Santos MD DS: Diagnosis Problem List Completed Was Problem List Reviewed/Reconciled?: Yes Hospital Course Hospital Course Hospital course: Reason for hospitalization: drain pericecal abscess Laureano Mary is 49 yr male with PMH of Crohn's disease (diagnosed November 2023) presented to [facility] ED on 08/09/2024 due to recurrent abdominal pain, nausea and loss of appetite. Stated that he was recently discharged from the hospital on 07/21 for acute right-sided pyelonephritis and perianal abscess which general surgery was consulted for but did not drain as it was too small. He was discharged with antibiotcs and prednisone taper. Symptoms had improved for about a week before worsening again. CT abdomen pelvis showed a right pericecal abscess measuring 3.4 x 3.7 cm, nonspecific colitis in the descending colon and sigmoid colon and a 12 x 6 mm right perianal abscess. Dr. Douglass, general surgery, was able to see the patient in the emergency room. Stated that patient does not need surgical intervention. IR was able to drain abscess with drainage catheter in place on 08/11. Pain was well controlled. Repeat CT showed abscess markedly decreased in size. Drainage catether was removed on 08/13. Patient is now in stable condition and ready for discharge. Recommendations were given as below. Discharge Recommendations: Take ciprofloxacin and metronidazole as prescribed for treatment of your abscess. Resume previous medications. Follow up with PCP in 1-2 weeks Follow up with GI doctor in 1-2 weeks. 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 Santos. Jaz Moyer MD, PGY-1 Time Spent with Patient Time attestation: Total time spent providing and/or coordinating discharge services: Time spent: Greater than 30 minutes Exam Vital Signs Temp Pulse Resp BP Pulse Ox O2 Del Method O2 Flow Rate 97.2 F 56 L 19 122/76 96 Room Air 3 08/14/24 12:00 08/14/24 12:00 08/14/24 12:00 08/14/24 12:08/14/24 12:00 08/14/24 12:00 08/11/24 14:40 Narrative Exam GENERAL: Awake, answering questions appropriately in Yoruba, middle aged male, thin appearing HEENT: NC/AT. Moist mucosa. PERRLA/EOMI. CARDIO: Heart RRR, no obvious murmurs, no JVD. PULM: No coughing or visible SOB. Lungs CTA B/L. GI: Abdomen soft, tender to palpation especially on the right upper and lower quadrants versus the left upper and lower quadrants, no rebound tenderness. SKIN/MSK/EXT: No wounds/discoloration/rashes/edema/amputations noted. +Pedal pulses present B/L. NEURO: Oriented x3, Moves extremities x4, no focal neurologic deficits noted Discharge Plan Plan Patient Disposition: HOME (Self Care) Patient condition on transfer: Stable Prescriptions/Referrals Prescriptions/Med Rec: New ciprofloxacin HCl 500 mg tablet 500 mg PO BID 5 Days Qty: 10 0RF metronidazole 500 mg tablet 500 mg PO TID 5 Days Qty: 15 0RF Continued diphenoxylate-atropine 2.5-0.025 mg tablet See Rx Instructions .ROUTE .COMPLEX PRN (Reason: Diarrhea) Patient Comments: TAKE 1-2 TABLETS BY MOUTH EVERY 8 HOURS NEEDED DIARRHEA MAX 8 TABS/24 HRS Rx Instructions: Take 1-2 tablets by mouth every 8 hours as needed for diarrhea pantoprazole [Protonix] 40 mg tablet,delayed release (DR/EC) 40 mg PO Q12H Qty: 60 0RF promethazine 12.5 mg tablet 12.5 mg PO QID 30 Days Qty: 120 0RF azathioprine 50 mg Tablet 50 mg PO QDAY 30 Days Qty: 30 0RF prednisone 5 mg tablet See Taper PO QDAY Qty: 147 0RF Taper: Prednisone Taper 30 mg DAILY for 7 Days and 0 Hour 25 mg DAILY for 7 Days and 0 Hour 20 mg DAILY for 7 Days and 0 Hour 15 mg DAILY for 7 Days 10 mg DAILY for 7 Days 5 mg DAILY for 7 Days mesalamine 500 mg capsule, extended release 1,000 mg PO BID Qty: 90 0RF Referrals: Mauro Jones MD [Primary Care Provider] - Patient/Caregiver Discharge Instructions Discharge Activity: activity as tolerated Other Discharge Activity Instructions:: Take ciprofloxacin and metronidazole as prescribed for treatment of your abscess. Resume previous medications. Follow up with PCP in 1-2 weeks Follow up with GI doctor in 1-2 weeks. Education Materials: Crohn Disease Lifestyle Manage Print Language: Yoruba Stand Alone Forms: [facility] Award Info., Patient Portal Info Letter Discharge Order Discharge Orders: Discharge (Routine); Ordered 08/14/24 Ordered By: Jaz Moyer Quality Discharge Quality Measures VTE prophylaxis
== END 2024-08-14 14:40 | disposition home or self-care (01) | DRG 254 ==
LOC: SERX 14:08 → SERHOLD 15:08 → S3SX 16:52
PROVIDERS: Nurse Practitioner Primary Care; Admitting Provider Student in an Organized Health Care Education/Training Program; Emergency Provider Emergency Medicine; PCP Student in an Organized Health Care Education/Training Program; Visit Provider Internal Medicine
DX: K61.0 Anal abscess (principal); N10 Acute pyelonephritis; D63.8 Anemia in other chronic diseases classified elsewhere; R31.9 Hematuria, unspecified; R82.81 Pyuria; K50.913 Crohn's disease, unspecified, with fistula; N50.811 Right testicular pain; G89.29 Other chronic pain; Z87.19 Personal history of other diseases of the digestive system; B96.20 Unspecified Escherichia coli [E. coli] as the cause of diseases classified elsewhere
CPT/HCPCS: 36415; 74018; 74176; 74177; 76000; 77012; 80053; 81001; 83690; 85025; 86140; 87070; 87077; 87081; 87086; 87186; 87205; 96374; 96375; 96376; 99285; A4649; C1729; C1769; J1643; J2270; J2405; J2543; J2919; J3010; J3490; J7030; Q9967; A9270; C1725

== ENCOUNTER → 2024-08-28 | Outpatient (CLI) | payer MEDICAID, SELFPAY | END | disposition home or self-care (01) | PROVIDERS: PCP Registered Nurse Community Health; Referring Provider Registered Nurse Community Health; Visit Provider Physician Assistant | DX: S31.819D Unspecified open wound of right buttock, subsequent encounter (principal); X58.XXXD Exposure to other specified factors, subsequent encounter; L98.412 Non-pressure chronic ulcer of buttock with fat layer exposed; L92.9 Granulomatous disorder of the skin and subcutaneous tissue, unspecified; D64.9 Anemia, unspecified; N63.0 Unspecified lump in unspecified breast; K50.90 Crohn's disease, unspecified, without complications | CPT/HCPCS: 99213; G0463 ==

== ENCOUNTER → 2024-09-11 | Outpatient (CLI) | payer MEDICAID, SELFPAY | END | disposition home or self-care (01) | LOC: SWHD 10:22 | PROVIDERS: PCP Registered Nurse Community Health; Referring Provider Registered Nurse Community Health; Visit Provider Physician Assistant | DX: S31.819D Unspecified open wound of right buttock, subsequent encounter (principal); X58.XXXD Exposure to other specified factors, subsequent encounter; L98.412 Non-pressure chronic ulcer of buttock with fat layer exposed; L92.9 Granulomatous disorder of the skin and subcutaneous tissue, unspecified; D64.9 Anemia, unspecified; N63.0 Unspecified lump in unspecified breast; K50.90 Crohn's disease, unspecified, without complications | CPT/HCPCS: 10060; A9270 ==

== ENCOUNTER → 2024-09-18 | Outpatient (CLI) | payer MEDICAID, SELFPAY | END | disposition home or self-care (01) | LOC: SWHD 09:35 | PROVIDERS: PCP Registered Nurse Community Health; Referring Provider Registered Nurse Community Health; Visit Provider Surgery | DX: S31.819D Unspecified open wound of right buttock, subsequent encounter (principal); X58.XXXD Exposure to other specified factors, subsequent encounter; L02.818 Cutaneous abscess of other sites; L98.411 Non-pressure chronic ulcer of buttock limited to breakdown of skin; L92.9 Granulomatous disorder of the skin and subcutaneous tissue, unspecified; D64.9 Anemia, unspecified; N63.0 Unspecified lump in unspecified breast; K50.90 Crohn's disease, unspecified, without complications | CPT/HCPCS: 99213; A9270; G0463 ==

== ENCOUNTER → 2024-09-29 | Outpatient (CLI) | payer MEDICAID, SELFPAY | END | disposition home or self-care (01) | LOC: SWHD 10:01 | PROVIDERS: PCP Registered Nurse Community Health; Referring Provider Registered Nurse Community Health; Visit Provider Student in an Organized Health Care Education/Training Program | DX: S31.819D Unspecified open wound of right buttock, subsequent encounter (principal); X58.XXXD Exposure to other specified factors, subsequent encounter; L02.818 Cutaneous abscess of other sites; L92.9 Granulomatous disorder of the skin and subcutaneous tissue, unspecified; D64.9 Anemia, unspecified; N63.0 Unspecified lump in unspecified breast; K50.90 Crohn's disease, unspecified, without complications | CPT/HCPCS: 17250; A9270 ==

== ENCOUNTER → 2024-10-02 | Outpatient (CLI) | payer MEDICAID, SELFPAY | END | disposition home or self-care (01) | LOC: SWHD 09:54 | PROVIDERS: PCP Registered Nurse Community Health; Referring Provider Registered Nurse Community Health; Visit Provider Surgery | DX: S31.819D Unspecified open wound of right buttock, subsequent encounter (principal); X58.XXXD Exposure to other specified factors, subsequent encounter; L02.818 Cutaneous abscess of other sites; L92.9 Granulomatous disorder of the skin and subcutaneous tissue, unspecified; D64.9 Anemia, unspecified; N63.0 Unspecified lump in unspecified breast; K50.90 Crohn's disease, unspecified, without complications | CPT/HCPCS: 99213; A9270; G0463 ==

== ENCOUNTER → 2024-10-16 | Outpatient (CLI) | payer MEDICAID, SELFPAY | END | disposition home or self-care (01) | LOC: SWHD 09:30 | PROVIDERS: PCP Registered Nurse Community Health; Referring Provider Registered Nurse Community Health; Visit Provider Student in an Organized Health Care Education/Training Program | DX: S31.819D Unspecified open wound of right buttock, subsequent encounter (principal); X58.XXXD Exposure to other specified factors, subsequent encounter; L02.818 Cutaneous abscess of other sites; L92.9 Granulomatous disorder of the skin and subcutaneous tissue, unspecified; D64.9 Anemia, unspecified; N63.0 Unspecified lump in unspecified breast; K50.90 Crohn's disease, unspecified, without complications | CPT/HCPCS: 99213; A9270; G0463 ==

== ENCOUNTER → 2024-10-30 | Outpatient (CLI) | payer MEDICAID, SELFPAY | END | disposition home or self-care (01) | LOC: SWHD 09:37 | PROVIDERS: PCP Registered Nurse Community Health; Referring Provider Registered Nurse Community Health; Visit Provider Surgery | DX: S31.819D Unspecified open wound of right buttock, subsequent encounter (principal); X58.XXXD Exposure to other specified factors, subsequent encounter; L98.412 Non-pressure chronic ulcer of buttock with fat layer exposed; L02.818 Cutaneous abscess of other sites; D64.9 Anemia, unspecified; N63.0 Unspecified lump in unspecified breast; K50.90 Crohn's disease, unspecified, without complications | CPT/HCPCS: 99213; A9270; G0463 ==

== ENCOUNTER → 2024-11-20 | Outpatient (CLI) | payer MEDICAID, SELFPAY | END | disposition home or self-care (01) | LOC: SWHD 09:44 | PROVIDERS: PCP Registered Nurse Community Health; Referring Provider Registered Nurse Community Health; Visit Provider Surgery | DX: S31.819D Unspecified open wound of right buttock, subsequent encounter (principal); X58.XXXD Exposure to other specified factors, subsequent encounter; L98.412 Non-pressure chronic ulcer of buttock with fat layer exposed; L02.818 Cutaneous abscess of other sites; N63.0 Unspecified lump in unspecified breast; D64.9 Anemia, unspecified | CPT/HCPCS: 99213; A9270; G0463 ==

== ENCOUNTER → 2024-12-11 | Outpatient (CLI) | payer MEDICAID, SELFPAY | END | disposition home or self-care (01) | LOC: SWHD 09:44 | PROVIDERS: PCP Registered Nurse Community Health; Referring Provider Registered Nurse Community Health; Visit Provider Surgery | DX: S31.819D Unspecified open wound of right buttock, subsequent encounter (principal); X58.XXXD Exposure to other specified factors, subsequent encounter; L02.818 Cutaneous abscess of other sites; L98.412 Non-pressure chronic ulcer of buttock with fat layer exposed; N63.0 Unspecified lump in unspecified breast; D64.9 Anemia, unspecified | CPT/HCPCS: 99213; A9270; G0463 ==

== ENCOUNTER → 2024-12-21 | Outpatient (CLI) | payer MEDICAID, SELFPAY | END | disposition home or self-care (01) | LOC: SWHD 09:02 | PROVIDERS: PCP Registered Nurse Community Health; Referring Provider Registered Nurse Community Health; Visit Provider Student in an Organized Health Care Education/Training Program | DX: S31.819D Unspecified open wound of right buttock, subsequent encounter (principal); X58.XXXD Exposure to other specified factors, subsequent encounter; L98.412 Non-pressure chronic ulcer of buttock with fat layer exposed; L02.818 Cutaneous abscess of other sites; N63.0 Unspecified lump in unspecified breast; D64.9 Anemia, unspecified | CPT/HCPCS: 99213; A9270; G0463 ==

== ENCOUNTER → 2025-01-04 | Outpatient (CLI) | payer MEDICAID, SELFPAY | END | disposition home or self-care (01) | LOC: SWHD 08:04 | PROVIDERS: PCP Registered Nurse Community Health; Referring Provider Registered Nurse Community Health; Visit Provider Student in an Organized Health Care Education/Training Program | DX: S31.819D Unspecified open wound of right buttock, subsequent encounter (principal); X58.XXXD Exposure to other specified factors, subsequent encounter; L98.412 Non-pressure chronic ulcer of buttock with fat layer exposed; L02.818 Cutaneous abscess of other sites; N63.0 Unspecified lump in unspecified breast; D64.9 Anemia, unspecified | CPT/HCPCS: 99213; A9270; G0463 ==

== ENCOUNTER → 2025-02-22 | Outpatient (CLI) | payer MEDICAID, SELFPAY | END | disposition home or self-care (01) | LOC: SWHD 08:33 | PROVIDERS: PCP Registered Nurse Community Health; Referring Provider Registered Nurse Community Health; Visit Provider Surgery | DX: S31.819D Unspecified open wound of right buttock, subsequent encounter (principal); X58.XXXD Exposure to other specified factors, subsequent encounter; L98.412 Non-pressure chronic ulcer of buttock with fat layer exposed; L02.818 Cutaneous abscess of other sites; N63.0 Unspecified lump in unspecified breast; D64.9 Anemia, unspecified | CPT/HCPCS: 99213; G0463 ==

== ENCOUNTER → 2025-03-15 | Outpatient (CLI) | payer MEDICAID, SELFPAY | END | disposition home or self-care (01) | PROVIDERS: PCP Registered Nurse Community Health; Referring Provider Registered Nurse Community Health; Visit Provider Student in an Organized Health Care Education/Training Program | DX: S31.819D Unspecified open wound of right buttock, subsequent encounter (principal); X58.XXXD Exposure to other specified factors, subsequent encounter; L98.412 Non-pressure chronic ulcer of buttock with fat layer exposed; L02.818 Cutaneous abscess of other sites; N63.0 Unspecified lump in unspecified breast; D64.9 Anemia, unspecified | CPT/HCPCS: 99213; A9270; G0463 ==